=== PATIENT | female | born 1945 ===

== ENCOUNTER 2016-09-10 14:10 | Inpatient (IN) | payer MEDICARE, BC ==
--- NOTE | 2016-09-10 14:50 | C.PDOC ---
History Of Present Illness 70F c/o episode of anterior chest "burning" and sob that started while she was lying down at dialysis. she says she sat up and called the tech and then the nuclear equipment test engineer came and saw her and sent her here. her sx dissipated after about 30 minutes. she had a similar episode last year that she says her dial maker told her was from her esophagus. however she also has a hx of cardiac stent. Time Seen by Provider: 09/10/16 14:46 Chief Complaint (Nursing): Shortness Of Breath Past Medical History Vital Signs: Last Vital Signs Temp 97.8 F 09/11/16 17:15 Pulse 83 09/11/16 17:15 Resp 20 09/11/16 17:15 BP 153/83 H 09/11/16 17:15 Pulse Ox 97 09/11/16 17:15 Family History: States: Other Other Family History: nc Review Of Systems Except As Marked, All Systems Reviewed And Found Negative. Constitutional: Negative for: Fever, Chills Cardiovascular: Positive for: Chest Pain. Negative for: Edema, Light Headedness Respiratory: Positive for: Shortness of Breath. Negative for: Cough, Hemoptysis Gastrointestinal: Negative for: Nausea, Vomiting, Abdominal Pain Neurological: Negative for: Weakness, Numbness, Headache Physical Exam - Physical Exam Appears: Well, Non-toxic, No Acute Distress Skin: Warm, Dry Head: Atraumatic Eye(s): bilateral: PERRL Nose: No Epistaxis Oral Mucosa: Moist Tongue: No Swelling Neck: Normal ROM Cardiovascular: Rhythm Regular Respiratory: No Decreased Breath Sounds, No Accessory Muscle Use, No Rales, No Rhonchi, No Wheezing Gastrointestinal/Abdominal: Soft, No Tenderness Extremity: No Calf Tenderness, No Swelling Pulses: Left Radial: Normal, Right Radial: Normal Neurological/Psych: Oriented x3, Normal Motor, Normal Sensation, Other (no focal deficits) ED Course And Treatment - Laboratory Results Result Diagrams: 09/11/16 07:58 09/11/16 07:58 Medical Decision Making Medical Decision Making: ecg- nsr 83, LVH, no stemi CT shows no PE, incidental right lung mass- I disc these results w the pt. disc w hospitalist who will admit Disposition - Disposition Disposition: HOSPITALIZED Disposition Time: 17:19 Condition: STABLE - Clinical Impression Clinical Impression: Chest pain
[2016-09-10 15:51] LABS: BASO # 0.1 K/uL (0.0-0.2); BASO % 0.7 % (0.0-2.0); EOS # 0.3 K/uL (0.0-0.7); EOS % 4.4 % (0.0-4.0); HEMATOCRIT 33.1 % (34.0-47.0); LYMPH # 0.8 K/uL (1.0-4.3); MEAN CELL VOLUME 92.7 fL (81.0-99.0); MEAN CORPUSCULAR HEMOGLOBIN 30.8 pg (27.0-31.0); MEAN CORPUSCULAR HGB CONC 33.2 g/dL (33.0-37.0); MEAN PLATELET VOLUME 7.6 fL (7.2-11.7); MONO # 0.7 K/uL (0.0-0.8); MONO % 9.5 % (0.0-10.0); NRBC % 0.1 % (0.0-2.0); WHITE BLOOD COUNT 7.3 K/uL (4.8-10.8)
[2016-09-10 15:56] LABS: POTASSIUM 3.4 mmol/L (3.6-5.2)
[2016-09-10 15:59] LABS: ALB/GLOB RATIO 1.2 (1.0-2.1); BILIRUBIN,TOTAL 0.8 mg/dL (0.2-1.3); CALCIUM 8.5 mg/dl (8.6-10.4); TOTAL PROTEIN 7.2 g/dL (6.3-8.3)
--- NOTE | 2016-09-10 15:59 | RAD ---
HISTORY: cp COMPARISON: None available TECHNIQUE: Chest, one view. FINDINGS: LUNGS: No focal consolidation. Please note that chest x-ray has limited sensitivity for the detection of pulmonary masses. PLEURA: No significant pleural effusion identified. No definite pneumothorax . CARDIOVASCULAR: Cardiomegaly. Vascular stent. Atherosclerotic calcifications of the aorta. OSSEOUS STRUCTURES: No acute osseous abnormality identified. VISUALIZED UPPER ABDOMEN: Unremarkable. OTHER FINDINGS: None. IMPRESSION: Cardiomegaly.
[2016-09-10 16:10] LABS: TROPONIN I 0.028 ng/mL (0.00-0.120)
[2016-09-10] MEDS ORDERED: Iodixanol 320 MG/ML 100 ML BOTTLE IV ONE (16:25)
--- NOTE | 2016-09-10 17:09 | CT ---
CT chest with IV contrast Indication: Shortness of breath, chest pain, positive D-dimer Technique: Contiguous axial images were obtained through the chest with intravenous contrast enhancement. Sagittal and coronal reconstructions were generated and reviewed. This CT exam was performed using 1 or more of the falling dose reduction techniques: Automated exposure control, adjustment of the MAA and/or kV according to patient size, and/or use of iterative reconstruction technique. IV Contrast: 100 mL Visipaque Radiation dose (DLP): 211.60 MGy-cm. Comparison: Chest x-ray performed 09/10/16 Findings: Visualized portions of the inferior thyroid gland appear unremarkable. Coronary artery calcifications. Mild cardiomegaly. Brachiocephalic vascular stent. Dense atherosclerotic calcifications of the aorta. No large central or segmental pulmonary embolus evident. 17 mm ground-glass focal opacity in the right lung apex (series 4, image 49). Bibasilar infiltrates. Trace bilateral pleural effusions. No pneumothorax. Limited visualization of the upper abdomen reveals 1.8 cm low-density lesion, left kidney ; likely cyst. Degenerative changes. Osseous demineralization. Impression: No large central or segmental pulmonary embolus identified. 17 mm focal ground-glass opacity in the right lung apex. Correlate clinically for focal inflammatory or infectious process. Malignant neoplasm cannot be excluded. Recommend further evaluation with PET- CT, follow-up CT at 3 months, and 9 months, and 24 months, or biopsy if indicated. Cardiomegaly. Coronary artery calcifications. Dense atherosclerotic calcifications of the aorta.
--- NOTE | 2016-09-10 18:57 | CP.PCM.HP ---
<Villa Graham - Last Filed: 09/11/16 07:32> History of Present Illness - History of Present Illness History of Present Illness: HPI: Patient is a 70 year old black female, with PMHx of ESRD, HTN, CAD, and stent placement in LAD, who presents to [facility] ([facility]) for chest pain. Patient reports being at dialysis when 2.5 hours through she began to experience a pain in her upper abdomen and chest after being moved to the supine position, that was associated with a sudden SOB and sweating. She describes the pain as sharp, "burning sensation" that traveled from her upper abdomen into her chest, lasted for twenty minutes, and rated a 7-8/10 on the severity scale. She made the ecological technical officer aware of her pain/SOB and they applied oxygen, and summoned Dr. Steele, who advised pt be sent to ED. Patient describes having a similar pain on two occasions: this past weekend after drinking coffee and having a fatty meal, and back in May - also during a dialysis session. After the episode in May pt saw her busgirl Dr. Winn, who prescribed a PPI for one month , after which pt had no additional episodes. Pt had cardiac catheterization with stent placement in her LAD back in November 2015, with Dr. Winn at [facility]. She denies fever, chills, cough, hemoptysis, dysuria, nausea, vomiting, weakness, numbness, headache, sick contacts, or recent travel. Pt admits her normal dry weight is 50.5 kg, pre-dialysis weighed 52.7 kg, and knows 2 liters was taken off during the dialysis. Her normal schedule is Fri, and her incinerator operator is Dr. Hernández. Pt has been on dialysis for five years and still makes urine. PMHx: ESRD (5 years), HTN, Stent placement in LAD (2009) PSHx: LAD Stent placement - November 2009, Pericardial Window (2003) Allergies: wheat Fam Hx: Father - pacemaker, CAD; Mother- HTN, DM, [place] Social Hx: denies tobacco, alcohol, illicit drug use Present on Admission - Present on Admission Any Indicators Present on Admission: No History of DVT/PE: No History of Uncontrolled Diabetes: No Review of Systems - Constitutional Constitutional: absent: Chills, Fever - EENT Eyes: absent: Change in Vision Ears: absent: Decreased Hearing Nose/Mouth/Throat: absent: Sore Throat - Cardiovascular Cardiovascular: Chest Pain (abdomen to mid-sternal), Diaphoresis, Dyspnea. absent: Irregular Heart Rhythm, Pedal Edema - Respiratory Respiratory: absent: Hemoptysis, Wheezing, Chest Congestion - Gastrointestinal Gastrointestinal: Abdominal Pain (upper abdomen (epigastric)), Heartburn. absent: Diarrhea, Nausea, Vomiting - Genitourinary Genitourinary: absent: Difficulty Urinating, Dysuria - Musculoskeletal Musculoskeletal: absent: Tingling - Integumentary Integumentary: absent: Dry Skin, Wounds - Neurological Neurological: absent: Tingling, Tremor, Weakness - Psychiatric Psychiatric: absent: Anxiety, Depression Past Patient History - Past Social History Smoking Status: Never Smoked - CARDIAC Hx Congestive Heart Failure: Yes Hx Hypertension: Yes - RENAL Hx Dialysis: Yes Type of Dialysis Access: THA arm Date of Last Dialysis Treatment: 09/10/16 - PSYCHIATRIC Hx Substance Use: No - SURGICAL HISTORY Hx Coronary Stent: Yes Other/Comment: Pericardal window - ANESTHESIA Hx Anesthesia: Yes Meds Allergies/Adverse Reactions: Allergies Allergy/AdvReac Type Severity Reaction Status Date / Time wheat Allergy Verified 09/10/16 14:52 Physical Exam - Constitutional Appears: Non-toxic, No Acute Distress - Head Exam Head Exam: ATRAUMATIC, NORMAL INSPECTION, NORMOCEPHALIC - Eye Exam Eye Exam: EOMI Pupil Exam: PERRL - ENT Exam ENT Exam: Mucous Membranes Moist - Respiratory Exam Respiratory Exam: Chest Wall Tenderness, Clear to Auscultation Bilateral, NORMAL BREATHING PATTERN. absent: Accessory Muscle Use, Rales, Rhonchi, Wheezes - Cardiovascular Exam Cardiovascular Exam: REGULAR RHYTHM, +S1, +S2, Systolic Murmur - GI/Abdominal Exam GI & Abdominal Exam: Normal Bowel Sounds, Soft, Tenderness (epigastric) - Extremities Exam Extremities exam: Positive for: normal inspection. Negative for: pedal edema - Back Exam Back exam: absent: CVA tenderness (L), CVA tenderness (R) - Neurological Exam Neurological exam: Alert, Oriented x3 - Psychiatric Exam Psychiatric exam: Normal Affect, Normal Mood - Skin Skin Exam: Normal Color, Warm Results - Vital Signs Recent Vital Signs: Last Vital Signs Temp Pulse 88 09/10/16 17:35 Resp 15 09/10/16 17:35 BP 200/76 H 09/10/16 17:35 Pulse Ox 98 09/10/16 17:35 - Labs Result Diagrams: 09/10/16 15:41 09/10/16 15:41 Assessment & Plan - Assessment and Plan (Free Text) Assessment: 70 year old black female, with PMHx of ESRD, HTN, CAD, and stent placement in LAD, who presents to [facility] ([facility] for chest pain. Troponins negative x 2. EKG no st/t wave changes. D-dimer elevated. CT angio negative for PE. Plan: Chest pain Admit as observation to tele EKG: NSR, Rate 83, No ST/T wave changes, f/u 2 additional Q6H Troponin: negative x 1, f/u 2 additional Q6H D-dimer 654 Oxygen 2L PRN Cardio consult: Dr. Winn, help appreciated -Hx of double-vessel disease, stent placement LAD Continue home meds: Crestor 20mg PO HS (substituted for home Lipitor) Lisinopril 20mg PO Daily Carvedilol 25mg PO BID Norvasc 10mg PO Daily Hydralazine 25mg PO TID ASA 325mg in field, continue 81mg Daily Clopidogrel 75mg PO Daily f/u ECHO, TSH, HgbA1C, fasting lipid panel ESRD Dry weight: 50.5 kg, 52.7 kg pre-dialysis, took off 2L during dialysis Schedule: T-Sat Nephrology: Dr. Pankaj Hernández, help appreciated - f/u reccs Bun/Cr 20/3.7, GFR 15 Elevated D-dimer D-Dimer 654 CT Angio (09/10/16): No PE. Cardiomegaly. CAD. Calcifications of Aorta. Incidental 17 mm focal ground-glass opacity in right lung apex. Recommend PET Scan, CT in 3 months, 9 months, and 24 months, or biopsy if indicated (see full report) f/u US VDL b/l Solitary Lung nodule CT Angio (09/10/16): No PE. Cardiomegaly. CAD. Calcifications of Aorta. Incidental 17 mm focal ground-glass opacity in right lung apex. Recommend PET Scan, CT in 3 months, 9 months, and 24 months, or biopsy if indicated (see full report) Pt aware of need for follow-up as OPDX HTN (hypertension) Hypertensive on admission, down-trending Lisinopril 20mg PO Daily Carvedilol 25mg PO BID Norvasc 10mg PO Daily Hydralazine 25mg PO TID Thrombocytopenia Platelets: 101k Monitor Hyperlipidemia Crestor 20mg PO HS f/u fasting cholesterol panel Electrolyte abnormalities K 3.4; repleted f/u CMP in AM Prophylactic measure Pepcid 20mg PO BID SCDs Heparin 5000u Q12H <German Rincon P - Last Filed: 09/14/16 23:27> Results - Vital Signs Recent Vital Signs: Last Vital Signs Temp 98.6 F 09/13/16 15:29 Pulse 62 09/13/16 15:30 Resp 20 09/13/16 15:29 BP 162/67 H 09/13/16 17:47 Pulse Ox 98 09/13/16 15:29 - Labs Result Diagrams: 09/13/16 07:11 09/13/16 07:11 Attending/Attestation - Attestation I have personally seen and examined this patient.: Yes I have fully participated in the care of the patient.: Yes I have reviewed all pertinent clinical information: Yes
[2016-09-11] MEDS ORDERED: Potassium Chloride 20 mEq ER Tab PO ONE ×2 (00:32→23:40)
[2016-09-11 08:14] LABS: BASO # 0.1 K/uL (0.0-0.2); BASO % 0.9 % (0.0-2.0); EOS # 0.3 K/uL (0.0-0.7); EOS % 4.7 % (0.0-4.0); HEMATOCRIT 31.5 % (34.0-47.0); LYMPH # 0.8 K/uL (1.0-4.3); LYMPH % 11.7 % (20.0-40.0); MEAN CELL VOLUME 92.9 fL (81.0-99.0); MEAN CORPUSCULAR HEMOGLOBIN 30.8 pg (27.0-31.0); MEAN CORPUSCULAR HGB CONC 33.1 g/dL (33.0-37.0); MEAN PLATELET VOLUME 7.8 fL (7.2-11.7); MONO # 0.7 K/uL (0.0-0.8); MONO % 10.1 % (0.0-10.0); WHITE BLOOD COUNT 7.1 K/uL (4.8-10.8)
[2016-09-11 08:31] LABS: POTASSIUM 4.7 mmol/L (3.6-5.2)
[2016-09-11 08:33] LABS: ALB/GLOB RATIO 1.2 (1.0-2.1); BILIRUBIN,TOTAL 0.7 mg/dL (0.2-1.3); TOTAL PROTEIN 6.4 g/dL (6.3-8.3)
[2016-09-11 08:34] LABS: CALCIUM 8.5 mg/dl (8.6-10.4); MAGNESIUM 2.1 mg/dL (1.6-2.3); PHOSPHOROUS 3.5 mg/dL (2.5-4.5)
[2016-09-11 09:09] LABS: THYROID STIMULATING HORMONE 2.42 mIU/L (0.46-4.68)
[2016-09-11] MEDS ORDERED: Iodixanol 320 MG/ML 100 ML BOTTLE IV ONE (09:28)
[2016-09-11] MEDS ORDERED: Midazolam 2 MG/2 ML VIAL ONE (09:30)
[2016-09-11] MEDS ORDERED: Enalaprilat 2.5 MG/2 ML ONE (09:57)
[2016-09-11] MEDS: Multivitamin Vitamin B Complex (Nephro-Vite) Tab PO SCH (10:27)
--- NOTE | 2016-09-11 11:26 | CARDCATH ---
PROCEDURE DATE: 09/11/2016 PROCEDURES: 1. Left heart catheterization. 2. Coronary angiogram. CLINICAL INDICATIONS: 1. Unstable angina. 2. Dyspnea. 3. History of coronary artery disease status post stents. 4. Hypertension. 5. Hyperlipidemia. 6. Chronic kidney disease on hemodialysis. REFERRING PHYSICIAN: Jayesh Esparza DO. PERFORMING PHYSICIAN: Willem Winn MD. PROCEDURE: After informed consent, the patient was prepped and draped in the usual sterile fashion. 2% lidocaine was given in the right groin for local anesthesia. Using micropuncture technique, 6-Fr ench sheath was introduced into the right common femoral artery. Using the usual diagnostic catheter s, left heart catheterization and coronary angiogram were performed. The patient tolerated the proce dure well. Post procedure, Perclose suture deployed in the right groin with excellent hemostasis. FINDINGS: 1. Left main coronary artery is patent. 2. Proximal LAD and mid LAD are patent. The patient has a distal LAD 99% in-stent stenosis. Apical LAD has 80% stenosis. Diagonal branches are patent. 3. Left circumflex is patent. Obtuse marginal-1 artery has 50% proximal and distal lesions. 4. Right coronary artery prior stent is patent. Distal right coronary artery has 80% focal stenosis . PDA has a diffuse disease. 5. LV ejection fraction is approximately 70%. No wall motion abnormalities. EDP is 30. No gradien t across the aortic valve. IMPRESSION: 1. Two-vessel coronary artery disease. 2. Normal left ventricular systolic function. The patient will be scheduled for ____ of the left anterior descending coronary artery tomorrow. Willem Winn MD cc: [id number] TT: 09/11/2016 11:26:03 jn
--- NOTE | 2016-09-11 12:38 | CP.PCM.PN ---
<Jim Mensah - Last Filed: 09/11/16 12:38> Subjective - Date & Time of Evaluation Date of Evaluation: 09/11/16 Time of Evaluation: 12:35 - Subjective Subjective: Med progress note. Attending: Dr. Esparza Pt seen and examined at bedside. No acute distress. No events overnight, but pt went for cardiac cath this morning. Pt to be transferred to [place] tomorrow for PCI. Denies fevers, chills, vomiting, diarrhea, syncope. Objective - Vital Signs/Intake and Output Vital Signs (last 24 hours): Temp Pulse Resp BP Pulse Ox 98.5 F 70 18 162/69 H 95 09/11/16 07:05 09/11/16 07:25 09/11/16 07:05 09/11/16 07:05 09/11/16 07:05 - Medications Medications: Current Medications Amlodipine Besylate (Norvasc) 10 mg PO Q24H [facility] Last Admin: 09/10/16 21:09 Dose: 10 mg Aspirin (Ecotrin) 81 mg PO DAILY [facility] Last Admin: 09/11/16 10:26 Dose: Not Given Carvedilol (Coreg) 25 mg PO BID [facility] Last Admin: 09/11/16 10:26 Dose: Not Given Cinacalcet (Sensipar) 30 mg PO DAILY [facility] Last Admin: 09/11/16 10:27 Dose: Not Given Famotidine (Pepcid) 20 mg PO BID [facility] Last Admin: 09/11/16 10:27 Dose: Not Given Heparin Sodium (Porcine) (Heparin) 5,000 units SC Q12 [facility] Last Admin: 09/11/16 10:27 Dose: Not Given Hydralazine HCl (Apresoline) 25 mg PO TID [facility] Last Admin: 09/11/16 10:26 Dose: Not Given Lisinopril (Zestril) 20 mg PO DAILY [facility] Last Admin: 09/11/16 10:27 Dose: Not Given Rosuvastatin Calcium (Crestor) 20 mg PO HS [facility] Last Admin: 09/11/16 02:11 Dose: 20 mg Sevelamer Carbonate (Renvela) 800 mg PO TIDCC [facility] Last Admin: 09/11/16 08:51 Dose: Not Given Vitamin B Complex/Vit C/Folic Acid (Nephro-Enedina) 1 tab PO DAILY [facility] Last Admin: 09/11/16 10:27 Dose: Not Given - Labs Labs: 09/11/16 07:58 09/11/16 07:58 - Constitutional Appears: Non-toxic, No Acute Distress - Head Exam Head Exam: ATRAUMATIC, NORMAL INSPECTION, NORMOCEPHALIC - Eye Exam Eye Exam: EOMI - ENT Exam ENT Exam: Mucous Membranes Moist - Neck Exam Neck Exam: Full ROM, Normal Inspection - Respiratory Exam Respiratory Exam: NORMAL BREATHING PATTERN. absent: Respiratory Distress - Cardiovascular Exam Cardiovascular Exam: +S1, +S2 - GI/Abdominal Exam GI & Abdominal Exam: Soft, Normal Bowel Sounds. absent: Tenderness - Extremities Exam Extremities Exam: Full ROM, Normal Inspection - Neurological Exam Neurological Exam: Alert, Awake, Oriented x3 - Psychiatric Exam Psychiatric exam: Normal Affect, Normal Mood - Skin Skin Exam: Dry, Intact, Normal Color, Warm Assessment and Plan - Assessment and Plan (Free Text) Assessment: 70 year old black female, with PMHx of ESRD, HTN, CAD, and stent placement in LAD, who presents to [facility] for chest pain Chest pain Admit as observation to tele EKG: NSR, Rate 83, No ST/T wave changes, f/u 2 additional Q6H Troponin: negative x 3 D-dimer 654 Oxygen 2L PRN CTA negative for PE Cardio consult: Dr. Winn, help appreciated -Hx of double-vessel disease, stent placement LAD Continue home meds: Crestor 20mg PO HS (substituted for home Lipitor) Lisinopril 20mg PO Daily Carvedilol 25mg PO BID Norvasc 10mg PO Daily Hydralazine 25mg PO TID ASA 325mg in field, continue 81mg Daily Clopidogrel 75mg PO Daily>> will discontinue f/u ECHO, TSH, HgbA1C, fasting lipid panel ESRD Dry weight: 50.5 kg, 52.7 kg pre-dialysis, took off 2L during dialysis Schedule: T--Sat Nephrology: Dr. Pankaj Hernández, help appreciated - f/u recs will get extra dialysis today in light of increased contrast load Elevated D-dimer D-Dimer 654 CT Angio (09/10/16): No PE. Cardiomegaly. CAD. Calcifications of Aorta. Incidental 17 mm focal ground-glass opacity in right lung apex. Recommend PET Scan, CT in 3 months, 9 months, and 24 months, or biopsy if indicated (see full report) f/u US VDL b/l Solitary Lung nodule CT Angio (09/10/16): No PE. Cardiomegaly. CAD. Calcifications of Aorta. Incidental 17 mm focal ground-glass opacity in right lung apex. Recommend PET Scan, CT in 3 months, 9 months, and 24 months, or biopsy if indicated (see full report) Pt aware of need for follow-up as outpatient HTN (hypertension) Hypertensive on admission, down-trending Lisinopril 20mg PO Daily Carvedilol 25mg PO BID Norvasc 10mg PO Daily Hydralazine 25mg PO TID Thrombocytopenia Platelets: 101k on admission Monitor Hyperlipidemia Crestor 20mg PO HS f/u fasting cholesterol panel Electrolyte abnormalities pt hypokalemic on admission, will continue to monitor and replete as needed Prophylactic measure Pepcid 20mg PO BID SCDs Heparin 5000u Q12H Dispo: based on cardiac cath, pt will need transfer to [facility] for PCI tomorrow. Will f/u echo results and pt will get extra dialysis today. discussed with Dr. Esparza <Jayesh Esparza - Last Filed: 09/11/16 16:14> Objective - Vital Signs/Intake and Output Vital Signs (last 24 hours): Temp Pulse Resp BP Pulse Ox 97.8 F 79 18 174/78 H 95 09/11/16 14:15 09/11/16 15:33 09/11/16 15:33 09/11/16 15:45 09/11/16 14:15 - Medications Medications: Current Medications Amlodipine Besylate (Norvasc) 10 mg PO Q24H [facility] Last Admin: 09/10/16 21:09 Dose: 10 mg Aspirin (Ecotrin) 81 mg PO DAILY [facility] Last Admin: 09/11/16 10:26 Dose: Not Given Carvedilol (Coreg) 25 mg PO BID [facility] Last Admin: 09/11/16 10:26 Dose: Not Given Cinacalcet (Sensipar) 30 mg PO DAILY [facility] Last Admin: 09/11/16 10:27 Dose: Not Given Famotidine (Pepcid) 20 mg PO BID [facility] Last Admin: 09/11/16 10:27 Dose: Not Given Heparin Sodium (Porcine) (Heparin) 5,000 units SC Q12 [facility] Last Admin: 09/11/16 10:27 Dose: Not Given Hydralazine HCl (Apresoline) 25 mg PO TID [facility] Last Admin: 09/11/16 10:26 Dose: Not Given Lisinopril (Zestril) 20 mg PO DAILY [facility] Last Admin: 09/11/16 10:27 Dose: Not Given Rosuvastatin Calcium (Crestor) 20 mg PO HS [facility] Last Admin: 09/11/16 02:11 Dose: 20 mg Sevelamer Carbonate (Renvela) 800 mg PO TIDCC [facility] Last Admin: 09/11/16 08:51 Dose: Not Given Vitamin B Complex/Vit C/Folic Acid (Nephro-Enedina) 1 tab PO DAILY [facility] Last Admin: 09/11/16 10:27 Dose: Not Given - Labs Labs: 09/11/16 07:58 09/11/16 07:58 Attending/Attestation - Attestation I have personally seen and examined this patient.: Yes I have fully participated in the care of the patient.: Yes I have reviewed all pertinent clinical information, including history, physical exam and plan: Yes Notes (Text): 09/11/16 16:11 Medical attending: Patient was seen and examined by me, agrees the above note by medical advisor. The patient was seen briefly after she had a cardiac cath done. She was pending an ultrasound of her heart. From my understanding the cardiac cath showed a significant amount of coronary disease. Per cardiology the patient is pending transfer over to [place] for further intervention. Thank you very much, Jayesh Esparza
--- NOTE | 2016-09-11 14:19 | VASCLAB ---
PROCEDURE: Lower Extremity Venous Duplex Exam. HISTORY: Chest pain PRIORS: None. TECHNIQUE: Bilateral common femoral, femoral, popliteal and posterior tibial, peroneal and great saphenous veins were evaluated. Flow was assessed with color Doppler, compressibility, assessment of phasic flow and augmentation response. Report prepared by VENUS Gilliam FINDINGS: RIGHT: 1. Common Femoral Vein: 1.1. Not examined/ dressings post cath in right groin 2. Femoral Vein: 2.1. Compressibility - Fully compressible: Thrombus - None : Flow - Phasic: Augmentation -Normal: Reflux - None. 3. Popliteal Vein: 3.1. Compressibility - Fully compressible: Thrombus - None : Flow - Phasic: Augmentation -Normal: Reflux - None. 4. Posterior Tibial Vein: 4.1. Compressibility - Fully compressible: Thrombus - None: Flow - Phasic: Augmentation -Normal: Reflux - None. 5. Peroneal Vein: 5.1. Compressibility - Fully compressible: Thrombus - None: Flow - Phasic: Augmentation -Normal: Reflux - None. 6. Great Saphenous Vein: 6.1. Compressibility - Fully compressible: Thrombus - None: Flow - Phasic: Augmentation - Normal: Reflux - None. LEFT: 1. Common Femoral Vein: 1.1. Compressibility - Fully compressible: Thrombus - None: Flow - Phasic: Augmentation -Normal: Reflux - None. 2. Femoral Vein: 2.1. Compressibility - Fully compressible: Thrombus - None: Flow - Phasic: Augmentation -Normal: Reflux - None. 3. Popliteal Vein: 3.1. Compressibility - Fully compressible: Thrombus - None : Flow - Phasic: Augmentation -Normal: Reflux - None. 4. Posterior Tibial Vein: 4.1. Compressibility - Fully compressible: Thrombus - None: Flow - Phasic: Augmentation -Normal: Reflux - None. 5. Peroneal Vein: 5.1. Compressibility - Fully compressible: Thrombus - None: Flow - Phasic: Augmentation -Normal: Reflux - None. 6. Great Saphenous Vein: 6.1. Compressibility - Fully compressible: Thrombus - None: Flow - Phasic: Augmentation - Normal: Reflux - None. OTHER FINDINGS: Right: None significant. Left: None significant. IMPRESSION: Right: No evidence of deep or superficial vein thrombosis of the right lower extremity. Normal valve function noted of the right side. Left: No evidence of deep or superficial vein thrombosis of the left lower extremity. Normal valve function noted of the left side.
--- NOTE | 2016-09-11 16:29 | CP.PCM.CON ---
History of Present Illness - History of Present Illness History of Present Illness: 70 y/o female with ESRD on [facility] on TTs schedule, HTN, CAD with LAD stenting in 11/2015 was brought to ER because while on dialysis suddenly developed chest pain & sob Renal consult is requested for Mx of ESRD Currently on dialysis. No CP or sob Past Patient History - Past Medical History & Family History Past Medical History?: Yes - Past Social History Smoking Status: Never Smoked - CARDIAC Hx Congestive Heart Failure: Yes Hx Hypertension: Yes - HEENT Hx Cataracts: Yes - RENAL Hx Dialysis: Yes Type of Dialysis Access: THA arm Date of Last Dialysis Treatment: 09/10/16 - HEMATOLOGICAL/ONCOLOGICAL Hx Blood Transfusions: Yes (2013) Hx Blood Transfusion Reaction: No - MUSCULOSKELETAL/RHEUMATOLOGICAL Hx Falls: Yes Hx Fractures: Yes (2008) - GASTROINTESTINAL Hx Gastroesophageal Reflux: Yes - PSYCHIATRIC Hx Substance Use: No - SURGICAL HISTORY Hx Coronary Stent: Yes Other/Comment: Pericardal window - ANESTHESIA Hx Anesthesia: Yes Meds Allergies/Adverse Reactions: Allergies Allergy/AdvReac Type Severity Reaction Status Date / Time wheat Allergy Verified 09/10/16 14:52 - Medications Medications: Current Medications Amlodipine Besylate (Norvasc) 10 mg PO Q24H [facility] Last Admin: 09/10/16 21:09 Dose: 10 mg Aspirin (Ecotrin) 81 mg PO DAILY [facility] Last Admin: 09/11/16 10:26 Dose: Not Given Carvedilol (Coreg) 25 mg PO BID [facility] Last Admin: 09/11/16 10:26 Dose: Not Given Cinacalcet (Sensipar) 30 mg PO DAILY [facility] Last Admin: 09/11/16 10:27 Dose: Not Given Famotidine (Pepcid) 20 mg PO BID [facility] Last Admin: 09/11/16 10:27 Dose: Not Given Heparin Sodium (Porcine) (Heparin) 5,000 units SC Q12 [facility] Last Admin: 09/11/16 10:27 Dose: Not Given Hydralazine HCl (Apresoline) 25 mg PO TID [facility] Last Admin: 09/11/16 10:26 Dose: Not Given Lisinopril (Zestril) 20 mg PO DAILY [facility] Last Admin: 09/11/16 10:27 Dose: Not Given Rosuvastatin Calcium (Crestor) 20 mg PO HS [facility] Last Admin: 09/11/16 02:11 Dose: 20 mg Sevelamer Carbonate (Renvela) 800 mg PO TIDCC [facility] Last Admin: 09/11/16 08:51 Dose: Not Given Vitamin B Complex/Vit C/Folic Acid (Nephro-Enedina) 1 tab PO DAILY [facility] Last Admin: 09/11/16 10:27 Dose: Not Given Physical Exam - Constitutional Additional comments: Weak but NAD - Head Exam Head Exam: ATRAUMATIC, NORMOCEPHALIC - Eye Exam Additional comments: No icterus - Neck Exam Additional comments: JVD + while supine - Respiratory Exam Additional comments: Lungs clear - Cardiovascular Exam Cardiovascular Exam: REGULAR RHYTHM - GI/Abdominal Exam GI & Abdominal Exam: Soft - Extremities Exam Additional comments: No edema or cyanosis Results - Vital Signs Recent Vital Signs: Last Vital Signs Temp 97.8 F 09/11/16 14:15 Pulse 79 09/11/16 15:33 Resp 18 09/11/16 15:33 BP 174/78 H 09/11/16 15:45 Pulse Ox 95 09/11/16 14:15 - Labs Result Diagrams: 09/11/16 07:58 09/11/16 07:58 Labs: Laboratory Results - last 24 hr 09/11/16 09/11/16 09/11/16 02:00 07:58 07:58 WBC 7.1 RBC 3.39 L Hgb 10.4 L Hct 31.5 L MCV 92.9 MCH 30.8 MCHC 33.1 RDW 17.0 H Plt Count 109 L MPV 7.8 Neut % (Auto) 72.6 Lymph % (Auto) 11.7 L [place] % (Auto) 10.1 H Eos % (Auto) 4.7 H Baso % (Auto) 0.9 Neut # 5.2 Lymph # 0.8 L [place] # 0.7 Eos # 0.3 Baso # 0.1 Sodium 137 Potassium 4.7 Chloride 96 L Carbon Dioxide 29 Anion Gap 16 BUN 28 H Creatinine 5.3 H Est GFR ( Amer) 10 Est GFR (Non-Af Amer) 8 Random Glucose 81 Hemoglobin A1c Calcium 8.5 L Phosphorus 3.5 Magnesium 2.1 Total Bilirubin 0.7 AST 15 ALT 11 Alkaline Phosphatase 49 Total Creatine Kinase 40 44 CK-MB (Mass) 1.18 1.15 Troponin I, Quant 0.0440 0.0490 Total Protein 6.4 Albumin 3.4 L Globulin 3.0 Albumin/Globulin Ratio 1.2 Triglycerides 82 Cholesterol 98 LDL Cholesterol Direct 37 HDL Cholesterol 37 TSH 3rd Generation 2.42 09/11/16 07:58 WBC RBC Hgb Hct MCV MCH MCHC RDW Plt Count MPV Neut % (Auto) Lymph % (Auto) [place] % (Auto) Eos % (Auto) Baso % (Auto) Neut # Lymph # [place] # Eos # Baso # Sodium Potassium Chloride Carbon Dioxide Anion Gap BUN Creatinine Est GFR ( Amer) Est GFR (Non-Af Amer) Random Glucose Hemoglobin A1c 4.7 Calcium Phosphorus Magnesium Total Bilirubin AST ALT Alkaline Phosphatase Total Creatine Kinase CK-MB (Mass) Troponin I, Quant Total Protein Albumin Globulin Albumin/Globulin Ratio Triglycerides Cholesterol LDL Cholesterol Direct HDL Cholesterol TSH 3rd Generation Assessment & Plan - Assessment and Plan (Free Text) Assessment: ESRD on HD Chest pain, Hx/o CAD HTN Plan: Pt had cardiac cath earlier today & is receiving extra dialysis now Labs are stable Monitor BP Continue HD TTS
[2016-09-11 16:38] LABS: INR 1.1
--- NOTE | 2016-09-11 21:05 | CP.PCM.PN ---
Subjective - Date & Time of Evaluation Date of Evaluation: 09/11/16 Time of Evaluation: 12:00 - Subjective Subjective: Patient s/p Cath Two vessel disease For LAD PCI tomorrow Objective - Vital Signs/Intake and Output Vital Signs (last 24 hours): Temp Pulse Resp BP Pulse Ox 98.6 F 77 18 173/77 H 97 09/11/16 18:00 09/11/16 18:00 09/11/16 18:00 09/11/16 18:04 09/11/16 18:00 - Medications Medications: Current Medications Amlodipine Besylate (Norvasc) 10 mg PO Q24H [facility] Last Admin: 09/10/16 21:09 Dose: 10 mg Aspirin (Ecotrin) 81 mg PO DAILY [facility] Last Admin: 09/11/16 10:26 Dose: Not Given Carvedilol (Coreg) 25 mg PO BID [facility] Last Admin: 09/11/16 18:04 Dose: 25 mg Cinacalcet (Sensipar) 30 mg PO DAILY [facility] Last Admin: 09/11/16 10:27 Dose: Not Given Famotidine (Pepcid) 20 mg PO BID [facility] Last Admin: 09/11/16 18:04 Dose: 20 mg Heparin Sodium (Porcine) (Heparin) 5,000 units SC Q12 [facility] Last Admin: 09/11/16 10:27 Dose: Not Given Hydralazine HCl (Apresoline) 25 mg PO TID [facility] Last Admin: 09/11/16 18:04 Dose: 25 mg Lisinopril (Zestril) 20 mg PO DAILY [facility] Last Admin: 09/11/16 10:27 Dose: Not Given Rosuvastatin Calcium (Crestor) 20 mg PO HS [facility] Last Admin: 09/11/16 02:11 Dose: 20 mg Sevelamer Carbonate (Renvela) 800 mg PO TIDCC [facility] Last Admin: 09/11/16 08:51 Dose: Not Given Vitamin B Complex/Vit C/Folic Acid (Nephro-Enedina) 1 tab PO DAILY [facility] Last Admin: 09/11/16 10:27 Dose: Not Given - Labs Labs: 09/11/16 07:58 09/11/16 07:58 PT 12.6 SECONDS (9.7-12.2) H 09/11/16 16:22 INR 1.1 09/11/16 16:22 APTT 32 SECONDS (21-34) 09/11/16 16:22
--- NOTE | 2016-09-12 00:54 | CARD ---
APPROVED REPORT EKG Measurement Heart [id number] <Conclusion> Normal sinus rhythm Possible Left atrial enlargement Left ventricular hypertrophy Nonspecific ST abnormality Abnormal ECG
--- NOTE | 2016-09-12 00:58 | CARD ---
APPROVED REPORT EKG Measurement Heart [id number] <Conclusion> Normal sinus rhythm Possible Left atrial enlargement Left ventricular hypertrophy Cannot rule out Septal infarct, age undetermined Abnormal ECG
[2016-09-12 05:04] LABS: BASO # 0.1 K/uL (0.0-0.2); EOS # 0.3 K/uL (0.0-0.7); EOS % 3.7 % (0.0-4.0); HEMATOCRIT 31.6 % (34.0-47.0); LYMPH # 1.1 K/uL (1.0-4.3); LYMPH % 14.2 % (20.0-40.0); MEAN CELL VOLUME 92.3 fL (81.0-99.0); MEAN CORPUSCULAR HEMOGLOBIN 30.5 pg (27.0-31.0); MEAN PLATELET VOLUME 7.8 fL (7.2-11.7); MONO # 0.9 K/uL (0.0-0.8); MONO % 10.8 % (0.0-10.0); WHITE BLOOD COUNT 7.9 K/uL (4.8-10.8)
[2016-09-12 05:14] LABS: POTASSIUM 4.5 mmol/L (3.6-5.2)
[2016-09-12 05:16] LABS: BILIRUBIN,TOTAL 0.6 mg/dL (0.2-1.3); TOTAL PROTEIN 6.6 g/dL (6.3-8.3)
[2016-09-12 05:17] LABS: MAGNESIUM 1.9 mg/dL (1.6-2.3); PHOSPHOROUS 3.3 mg/dL (2.5-4.5)
[2016-09-12 06:28] LABS: ALB/GLOB RATIO 0.9 (1.0-2.1)
[2016-09-12] MEDS: Multivitamin Vitamin B Complex (Nephro-Vite) Tab PO SCH (09:33)
--- NOTE | 2016-09-12 13:17 | CP.PCM.PN ---
<Jim Mensah - Last Filed: 09/12/16 13:20> Subjective - Date & Time of Evaluation Date of Evaluation: 09/12/16 Time of Evaluation: 13:15 - Subjective Subjective: Med progress note. Attending: Dr. Esparza Pt seen and examined at bedside. No acute distress. No events overnight. Pt is back from PCI at [place], 2 stents placed. Extra dialysis today. No fevers, chills, vomiting, diarrhea, syncope. Objective - Vital Signs/Intake and Output Vital Signs (last 24 hours): Temp Pulse Resp BP Pulse Ox 98.9 F 65 18 163/70 H 97 09/12/16 12:32 09/12/16 07:05 09/12/16 07:05 09/12/16 07:05 09/12/16 07:05 - Medications Medications: Current Medications Amlodipine Besylate (Norvasc) 10 mg PO Q24H [facility] Last Admin: 09/11/16 21:26 Dose: 10 mg Aspirin (Ecotrin) 81 mg PO DAILY [facility] Last Admin: 09/12/16 09:32 Dose: Not Given Carvedilol (Coreg) 25 mg PO BID [facility] Last Admin: 09/12/16 09:32 Dose: Not Given Cinacalcet (Sensipar) 30 mg PO DAILY [facility] Last Admin: 09/12/16 09:34 Dose: Not Given Famotidine (Pepcid) 20 mg PO BID [facility] Last Admin: 09/12/16 09:33 Dose: Not Given Heparin Sodium (Porcine) (Heparin) 5,000 units SC Q12 [facility] Last Admin: 09/12/16 09:33 Dose: Not Given Hydralazine HCl (Apresoline) 25 mg PO TID [facility] Last Admin: 09/12/16 09:32 Dose: Not Given Lisinopril (Zestril) 20 mg PO DAILY [facility] Last Admin: 09/11/16 10:27 Dose: Not Given Rosuvastatin Calcium (Crestor) 20 mg PO HS [facility] Last Admin: 09/11/16 21:27 Dose: 20 mg Sevelamer Carbonate (Renvela) 800 mg PO TIDCC [facility] Last Admin: 09/12/16 09:34 Dose: Not Given Vitamin B Complex/Vit C/Folic Acid (Nephro-Enedina) 1 tab PO DAILY [facility] Last Admin: 09/12/16 09:33 Dose: Not Given - Labs Labs: PT 12.6 SECONDS (9.7-12.2) H 09/11/16 16:22 INR 1.1 09/11/16 16:22 APTT 32 SECONDS (21-34) 09/11/16 16:22 - Constitutional Appears: Non-toxic, No Acute Distress - Head Exam Head Exam: ATRAUMATIC, NORMAL INSPECTION, NORMOCEPHALIC - Eye Exam Eye Exam: EOMI - ENT Exam ENT Exam: Mucous Membranes Moist - Neck Exam Neck Exam: Full ROM, Normal Inspection - Respiratory Exam Respiratory Exam: NORMAL BREATHING PATTERN. absent: Respiratory Distress - Cardiovascular Exam Cardiovascular Exam: +S1, +S2 - GI/Abdominal Exam GI & Abdominal Exam: Soft, Normal Bowel Sounds. absent: Tenderness - Extremities Exam Extremities Exam: Full ROM, Normal Inspection - Back Exam Back Exam: NORMAL INSPECTION - Neurological Exam Neurological Exam: Alert, Awake, CN II-XII Intact, Oriented x3 - Psychiatric Exam Psychiatric exam: Normal Affect, Normal Mood - Skin Skin Exam: Dry, Intact, Normal Color, Warm Assessment and Plan - Assessment and Plan (Free Text) Assessment: 70 year old black female, with PMHx of ESRD, HTN, CAD, and stent placement in LAD, who presents to [facility] for chest pain Chest pain will continue telemetry EKG: NSR, Rate 83, No ST/T wave changes, Troponin: negative x 3 D-dimer 654 Oxygen 2L PRN CTA negative for PE Cardio consult: Dr. Winn, help appreciated -Hx of double-vessel disease, stent placement LAD Continue home meds: Crestor 20mg PO HS (substituted for home Lipitor) Lisinopril 20mg PO Daily, placed on hold Carvedilol 25mg PO BID Norvasc 10mg PO Daily Hydralazine 25mg PO TID ASA 325mg in field, has been on 81 mg daily, got loading dose today, will restart 81 mg tomorrow Clopidogrel 75mg PO Daily>> will discontinue>> will restart tomorrow pt is s/p PCI at [place], 2 stents placed in LAD ESRD Dry weight: 50.5 kg, 52.7 kg pre-dialysis, took off 2L during dialysis Schedule: T-Sat Nephrology: Dr. Pankaj Hernández, help appreciated - f/u recs will get extra dialysis today in light of increased contrast load Elevated D-dimer D-Dimer 654 CT Angio (09/10/16): No PE. Cardiomegaly. CAD. Calcifications of Aorta. Incidental 17 mm focal ground-glass opacity in right lung apex. Recommend PET Scan, CT in 3 months, 9 months, and 24 months, or biopsy if indicated (see full report) dopplers negative Solitary Lung nodule CT Angio (09/10/16): No PE. Cardiomegaly. CAD. Calcifications of Aorta. Incidental 17 mm focal ground-glass opacity in right lung apex. Recommend PET Scan, CT in 3 months, 9 months, and 24 months, or biopsy if indicated (see full report) Pt aware of need for follow-up as outpatient HTN (hypertension) Hypertensive on admission, down-trending Lisinopril 20mg PO Daily, placed on hold Carvedilol 25mg PO BID Norvasc 10mg PO Daily Hydralazine 25mg PO TID Thrombocytopenia Platelets: 101k on admission Monitor Hyperlipidemia Crestor 20mg PO HS f/u fasting cholesterol panel Electrolyte abnormalities pt hypokalemic on admission, will continue to monitor and replete as needed Prophylactic measure Pepcid 20mg PO BID [facility] Heparin 5000u Q12H Dispo: S/P PCI at [facility] with Dr. Winn. Will f/u echo results and pt will get extra dialysis today. discussed with Dr. Esparza <Jayesh Esparza - Last Filed: 09/13/16 07:37> Objective - Vital Signs/Intake and Output Vital Signs (last 24 hours): Temp Pulse Resp BP Pulse Ox 99.2 F 74 20 158/64 H 95 09/12/16 23:35 09/12/16 23:35 09/12/16 23:35 09/12/16 23:35 09/12/16 23:35 - Medications Medications: Current Medications Amlodipine Besylate (Norvasc) 10 mg PO Q24H [facility] Last Admin: 09/12/16 20:43 Dose: 10 mg Aspirin (Ecotrin) 81 mg PO DAILY [facility] Last Admin: 09/12/16 09:32 Dose: Not Given Carvedilol (Coreg) 25 mg PO BID [facility] Last Admin: 09/12/16 19:39 Dose: 25 mg Cinacalcet (Sensipar) 30 mg PO DAILY [facility] Last Admin: 09/12/16 09:34 Dose: Not Given Clopidogrel Bisulfate (Plavix) 75 mg PO DAILY [facility] Famotidine (Pepcid) 20 mg PO DAILY [facility] Last Admin: 09/12/16 20:43 Dose: 20 mg Heparin Sodium (Porcine) (Heparin) 5,000 units SC Q12 [facility] Last Admin: 09/12/16 21:30 Dose: Not Given Hydralazine HCl (Apresoline) 25 mg PO TID [facility] Last Admin: 09/12/16 20:44 Dose: 25 mg Lisinopril (Zestril) 20 mg PO DAILY [facility] Last Admin: 09/11/16 10:27 Dose: Not Given Rosuvastatin Calcium (Crestor) 10 mg PO HS [facility] Last Admin: 09/12/16 21:28 Dose: 10 mg Sevelamer Carbonate (Renvela) 800 mg PO TIDCC [facility] Last Admin: 09/12/16 20:43 Dose: 800 mg Vitamin B Complex/Vit C/Folic Acid (Nephro-Enedina) 1 tab PO DAILY [facility] Last Admin: 09/12/16 09:33 Dose: Not Given - Labs Labs: 09/13/16 07:11 PT 12.6 SECONDS (9.7-12.2) H 09/11/16 16:22 INR 1.1 09/11/16 16:22 APTT 32 SECONDS (21-34) 09/11/16 16:22 Assessment and Plan - Assessment and Plan (Free Text) Assessment: Medical Attending: Patient later returned late in the afternoon after I had left. As documented in the above notes she was moved in the morning to for stent placment. She will now need extra HD now that she is back here at [facility]. thank you Jayesh Esparza
--- NOTE | 2016-09-12 14:20 | CP.PCM.PN ---
Subjective - Date & Time of Evaluation Date of Evaluation: 09/12/16 Time of Evaluation: 14:19 - Subjective Subjective: Patient s/p successful LAD intervention with Two Drug eluting stents HD today Ambulate after 2pm today Continue ASA, Plavix, Statins, B Blockers HTN mgt DVT and GI prophylaxis Objective - Vital Signs/Intake and Output Vital Signs (last 24 hours): Temp Pulse Resp BP Pulse Ox 98.9 F 65 18 163/70 H 97 09/12/16 12:32 09/12/16 07:05 09/12/16 07:05 09/12/16 07:05 09/12/16 07:05 - Medications Medications: Current Medications Amlodipine Besylate (Norvasc) 10 mg PO Q24H [facility] Last Admin: 09/11/16 21:26 Dose: 10 mg Aspirin (Ecotrin) 81 mg PO DAILY [facility] Last Admin: 09/12/16 09:32 Dose: Not Given Carvedilol (Coreg) 25 mg PO BID [facility] Last Admin: 09/12/16 09:32 Dose: Not Given Cinacalcet (Sensipar) 30 mg PO DAILY [facility] Last Admin: 09/12/16 09:34 Dose: Not Given Famotidine (Pepcid) 20 mg PO BID [facility] Last Admin: 09/12/16 09:33 Dose: Not Given Heparin Sodium (Porcine) (Heparin) 5,000 units SC Q12 [facility] Last Admin: 09/12/16 09:33 Dose: Not Given Hydralazine HCl (Apresoline) 25 mg PO TID [facility] Last Admin: 09/12/16 09:32 Dose: Not Given Lisinopril (Zestril) 20 mg PO DAILY [facility] Last Admin: 09/11/16 10:27 Dose: Not Given Rosuvastatin Calcium (Crestor) 20 mg PO HS [facility] Last Admin: 09/11/16 21:27 Dose: 20 mg Sevelamer Carbonate (Renvela) 800 mg PO TIDCC [facility] Last Admin: 09/12/16 13:33 Dose: Not Given Vitamin B Complex/Vit C/Folic Acid (Nephro-Enedina) 1 tab PO DAILY [facility] Last Admin: 09/12/16 09:33 Dose: Not Given - Labs Labs: PT 12.6 SECONDS (9.7-12.2) H 09/11/16 16:22 INR 1.1 09/11/16 16:22 APTT 32 SECONDS (21-34) 09/11/16 16:22
[2016-09-13 00:58] VITALS: RESP 20
[2016-09-13 07:23] LABS: BASO # 0.1 K/uL (0.0-0.2); BASO % 0.9 % (0.0-2.0); EOS # 0.2 K/uL (0.0-0.7); EOS % 2.9 % (0.0-4.0); HEMATOCRIT 32.3 % (34.0-47.0); LYMPH # 0.6 K/uL (1.0-4.3); LYMPH % 8.9 % (20.0-40.0); MEAN CORPUSCULAR HGB CONC 33.3 g/dL (33.0-37.0); MONO # 0.7 K/uL (0.0-0.8); MONO % 9.8 % (0.0-10.0); PLATELET COUNT 135 K/uL (130-400); WHITE BLOOD COUNT 7.1 K/uL (4.8-10.8)
[2016-09-13 07:40] LABS: POTASSIUM 4.4 mmol/L (3.6-5.2)
[2016-09-13 07:42] LABS: ALB/GLOB RATIO 1.1 (1.0-2.1); BILIRUBIN,TOTAL 0.7 mg/dL (0.2-1.3); TOTAL PROTEIN 6.8 g/dL (6.3-8.3)
[2016-09-13 07:43] LABS: PHOSPHOROUS 3.7 mg/dL (2.5-4.5)
[2016-09-13 09:11] LABS: BASOPHIL 1 % (0-2); EOSINOPHIL 2 % (0-4); NEUTROPHIL 84 % (50-75); TOTAL CELLS COUNTED 100
[2016-09-13] MEDS: Multivitamin Vitamin B Complex (Nephro-Vite) Tab PO SCH (09:52)
--- NOTE | 2016-09-13 13:22 | CP.PCM.PN ---
<Humaira Paz - Last Filed: 09/13/16 13:22> Subjective - Date & Time of Evaluation Date of Evaluation: 09/13/16 Time of Evaluation: 09:00 - Subjective Subjective: PGY-[address] Winn Pt seen and examined. No bleeding, denies cp, n/v, sob Objective - Vital Signs/Intake and Output Vital Signs (last 24 hours): Temp Pulse Resp BP Pulse Ox 98.2 F 75 20 196/73 H 99 09/13/16 07:10 09/13/16 07:10 09/13/16 07:10 09/13/16 09:52 09/13/16 07:10 - Medications Medications: Current Medications Amlodipine Besylate (Norvasc) 10 mg PO Q24H [facility] Last Admin: 09/12/16 20:43 Dose: 10 mg Aspirin (Ecotrin) 81 mg PO DAILY [facility] Last Admin: 09/13/16 09:52 Dose: 81 mg Carvedilol (Coreg) 25 mg PO BID [facility] Last Admin: 09/13/16 09:52 Dose: 25 mg Cinacalcet (Sensipar) 30 mg PO DAILY [facility] Last Admin: 09/13/16 09:50 Dose: 30 mg Clopidogrel Bisulfate (Plavix) 75 mg PO DAILY [facility] Last Admin: 09/13/16 09:52 Dose: 75 mg Famotidine (Pepcid) 20 mg PO DAILY [facility] Last Admin: 09/13/16 09:52 Dose: 20 mg Heparin Sodium (Porcine) (Heparin) 5,000 units SC Q12 [facility] Last Admin: 09/13/16 09:51 Dose: 5,000 units Hydralazine HCl (Apresoline) 25 mg PO TID [facility] Last Admin: 09/13/16 09:52 Dose: 25 mg Lisinopril (Zestril) 20 mg PO DAILY [facility] Last Admin: 09/11/16 10:27 Dose: Not Given Rosuvastatin Calcium (Crestor) 10 mg PO HS [facility] Last Admin: 09/12/16 21:28 Dose: 10 mg Sevelamer Carbonate (Renvela) 800 mg PO TIDCC [facility] Last Admin: 09/13/16 12:13 Dose: 800 mg Vitamin B Complex/Vit C/Folic Acid (Nephro-Enedina) 1 tab PO DAILY [facility] Last Admin: 09/13/16 09:52 Dose: 1 tab - Labs Labs: 09/13/16 07:11 09/13/16 07:11 PT 12.6 SECONDS (9.7-12.2) H 09/11/16 16:22 INR 1.1 09/11/16 16:22 APTT 32 SECONDS (21-34) 09/11/16 16:22 - Constitutional Appears: No Acute Distress - Head Exam Head Exam: ATRAUMATIC, NORMOCEPHALIC - Eye Exam Eye Exam: EOMI, Normal appearance, PERRL - ENT Exam ENT Exam: Mucous Membranes Moist - Neck Exam Neck Exam: absent: Thyromegaly Additional comments: no carotid bruit - Respiratory Exam Respiratory Exam: Clear to Ausculation Bilateral, NORMAL BREATHING PATTERN. absent: Rales, Rhonchi, Wheezes - Cardiovascular Exam Cardiovascular Exam: REGULAR RHYTHM, +S1, +S2, Murmur (systolic) - GI/Abdominal Exam GI & Abdominal Exam: Soft. absent: Guarding, Rigid, Tenderness - Extremities Exam Extremities Exam: Normal Capillary Refill. absent: Calf Tenderness, Pedal Edema Additional comments: slight hematoma 1inc x 2 inch on L dorsal foot. - Neurological Exam Neurological Exam: Alert, Awake, Normal Gait, Oriented x3 - Psychiatric Exam Psychiatric exam: Normal Affect, Normal Mood - Skin Skin Exam: Dry, Warm Assessment and Plan - Assessment and Plan (Free Text) Plan: 70 AA F with PMHx prior stent LAD (2009) on ASA only, ESRD, HTN admitted for chest pain during dialysis. pt is s/p LAD intervention with 2 Drug eluting stents (09/12/16). CAD Unstable angina - resolved - ASA, plavix, coreg 25 bid, rosuvastain 10 HTN - Amlodipine, hydralazine 225 tid DVT prophylasix - heparin sq q12 Disposition - Follow up with Dr. Winn in 1 week after discharge s/r/d/w Dr. Winn <Willem Winn - Last Filed: 09/13/16 23:04> Objective - Vital Signs/Intake and Output Vital Signs (last 24 hours): Temp Pulse Resp BP Pulse Ox 98.6 F 62 20 162/67 H 98 09/13/16 15:29 09/13/16 15:30 09/13/16 15:29 09/13/16 17:47 09/13/16 15:29 - Labs Labs: 09/13/16 07:11 09/13/16 07:11 PT 12.6 SECONDS (9.7-12.2) H 09/11/16 16:22 INR 1.1 09/11/16 16:22 APTT 32 SECONDS (21-34) 09/11/16 16:22 Assessment and Plan - Assessment and Plan (Free Text) Assessment: Patient seen and evaluated with the medical administrator Agree with the treatment plan
--- NOTE | 2016-09-13 14:37 | CP.PCM.DIS ---
<Jim Mensah - Last Filed: 09/13/16 14:44> Provider - Provider Date of Admission: 09/12/16 09:28 Attending physician: Jayesh Esparza DO Consults: 1. Consults Dr. Pa Hernández Time Spent in preparation of Discharge (in minutes): 45 Hospital Course - Lab Results Lab Results: Most Recent Lab Values WBC 7.1 K/uL (4.8-10.8) 09/13/16 07:11 RBC 3.47 Mil/uL (3.80-5.20) L 09/13/16 07:11 Hgb 10.7 g/dL (11.0-16.0) L 09/13/16 07:11 Hct 32.3 % (34.0-47.0) L 09/13/16 07:11 MCV 93.0 fL (81.0-99.0) 09/13/16 07:11 MCH 31.0 pg (27.0-31.0) 09/13/16 07:11 MCHC 33.3 g/dL (33.0-37.0) 09/13/16 07:11 RDW 17.0 % (11.5-14.5) H 09/13/16 07:11 Plt Count 135 K/uL (130-400) 09/13/16 07:11 MPV 8.0 fL (7.2-11.7) 09/13/16 07:11 Neut % (Auto) 77.5 % (50.0-75.0) H 09/13/16 07:11 Lymph % (Auto) 8.9 % (20.0-40.0) L 09/13/16 07:11 Stark % (Auto) 9.8 % (0.0-10.0) 09/13/16 07:11 Eos % (Auto) 2.9 % (0.0-4.0) 09/13/16 07:11 Baso % (Auto) 0.9 % (0.0-2.0) 09/13/16 07:11 Neut # 5.5 K/uL (1.8-7.0) 09/13/16 07:11 Lymph # 0.6 K/uL (1.0-4.3) L 09/13/16 07:11 Stark # 0.7 K/uL (0.0-0.8) 09/13/16 07:11 Eos # 0.2 K/uL (0.0-0.7) 09/13/16 07:11 Baso # 0.1 K/uL (0.0-0.2) 09/13/16 07:11 Neutrophils % (Manual) 84 % (50-75) H 09/13/16 07:11 Band Neutrophils % 1 % (0-2) 09/13/16 07:11 Lymphocytes % (Manual) 7 % (20-40) L 09/13/16 07:11 Monocytes % (Manual) 5 % (0-10) 09/13/16 07:11 Eosinophils % (Manual) 2 % (0-4) 09/13/16 07:11 Basophils % (Manual) 1 % (0-2) 09/13/16 07:11 Differential Comment 09/10/16 15:41 Platelet Estimate Normal (NORMAL) 09/13/16 07:11 Hypochromasia (manual) Slight 09/13/16 07:11 Poikilocytosis (manual Slight 09/13/16 07:11 Anisocytosis (manual) Slight 09/13/16 07:11 Macrocytosis (manual) Slight 09/13/16 07:11 PT 12.6 SECONDS (9.7-12.2) H 09/11/16 16:22 INR 1.1 09/11/16 16:22 APTT 32 SECONDS (21-34) 09/11/16 16:22 D-Dimer, Quantitative 654 ng/mlDDU (0-243) H 09/10/16 15:41 Sodium 136 mmol/L (132-148) 09/13/16 07:11 Potassium 4.4 mmol/L (3.6-5.2) 09/13/16 07:11 Chloride 95 mmol/L (98-107) L 09/13/16 07:11 Carbon Dioxide 31 mmol/L (22-30) H 09/13/16 07:11 Anion Gap 14 (10-20) 09/13/16 07:11 BUN 21 mg/dL (7-17) H 09/13/16 07:11 Creatinine 3.7 MG/DL (0.7-1.2) H 09/13/16 07:11 Est GFR ( Amer) 15 09/13/16 07:11 Est GFR (Non-Af Amer) 12 09/13/16 07:11 Random Glucose 97 mg/dL (65-105) 09/13/16 07:11 Hemoglobin A1c 4.7 % (4.2-6.5) 09/11/16 07:58 Calcium 9.0 mg/dl (8.6-10.4) 09/13/16 07:11 Phosphorus 3.7 mg/dL (2.5-4.5) 09/13/16 07:11 Magnesium 2.0 mg/dL (1.6-2.3) 09/13/16 07:11 Total Bilirubin 0.7 mg/dL (0.2-1.3) 09/13/16 07:11 AST 15 U/L (14-36) 09/13/16 07:11 ALT 11 U/L (9-52) 09/13/16 07:11 Alkaline Phosphatase 53 U/L (38-126) 09/13/16 07:11 Total Creatine Kinase 44 U/L (30-135) 09/11/16 07:58 CK-MB (Mass) 1.15 ng/mL (0.0-3.38) 09/11/16 07:58 Troponin I 0.0280 ng/mL (0.00-0.120) 09/10/16 15:41 Troponin I, Quant 0.0490 ng/mL (0.00-0.120) 09/11/16 07:58 Total Protein 6.8 g/dL (6.3-8.3) 09/13/16 07:11 Albumin 3.5 g/dL (3.5-5.0) 09/13/16 07:11 Globulin 3.3 gm/dL (2.2-3.9) 09/13/16 07:11 Albumin/Globulin Ratio 1.1 (1.0-2.1) 09/13/16 07:11 Triglycerides 82 mg/dL (0-149) 09/11/16 07:58 Cholesterol 98 mg/dL (0-199) 09/11/16 07:58 LDL Cholesterol Direct 37 mg/dL (0-129) 09/11/16 07:58 HDL Cholesterol 37 mg/dL (30-70) 09/11/16 07:58 TSH 3rd Generation 2.42 mIU/L (0.46-4.68) 09/11/16 07:58 Blood Type O POSITIVE 09/11/16 16:22 Antibody Screen Negative 09/11/16 16:22 - Hospital Course Hospital Course: admit date- 09/10/16 DC date- September 13/2017 Attending: Dr. Esparza Stable upon discharge Procedures- PCI at [facility], 2 stents LAD, dialysis No complications Consults 1. Cardiology- Dr. Winn 2. Nephrology- Dr. Hernández HPI: see h/p Labs: see lab data Hospital course 70 year old black female, with PMHx of ESRD, HTN, CAD, and stent placement in LAD, who presents to [facility] for chest pain Chest pain will continue telemetry EKG: NSR, Rate 83, No ST/T wave changes, Troponin: negative x 3 D-dimer 654 Oxygen 2L PRN CTA negative for PE Cardio consult: Dr. Winn, help appreciated -Hx of double-vessel disease, stent placement LAD Continue home meds: Crestor 20mg PO HS (substituted for home Lipitor) Lisinopril 20mg PO Daily, placed on hold >>>restarted on dc Carvedilol 25mg PO BID Norvasc 10mg PO Daily Hydralazine 25mg PO TID ASA 325mg in field, has been on 81 mg daily, got loading dose today, will restart 81 mg daily Clopidogrel 75mg PO Daily>> will discontinue>> will restart pt is s/p PCI at [facility], 2 stents placed in LAD ESRD Dry weight: 50.5 kg, 52.7 kg pre-dialysis, took off 2L during dialysis Schedule: T-Fri Nephrology: Dr. Pankaj Hernández, help appreciated - f/u recs received extra dialysis 6-1 in light of increased contrast load Elevated D-dimer D-Dimer 654 CT Angio (09/10/16): No PE. Cardiomegaly. CAD. Calcifications of Aorta. Incidental 17 mm focal ground-glass opacity in right lung apex. Recommend PET Scan, CT in 3 months, 9 months, and 24 months, or biopsy if indicated (see full report) dopplers negative Solitary Lung nodule CT Angio (09/10/16): No PE. Cardiomegaly. CAD. Calcifications of Aorta. Incidental 17 mm focal ground-glass opacity in right lung apex. Recommend PET Scan, CT in 3 months, 9 months, and 24 months, or biopsy if indicated (see full report) Pt aware of need for follow-up as outpatient HTN (hypertension) Hypertensive on admission, down-trending Lisinopril 20mg PO Daily, placed on hold>> restarted on dc Carvedilol 25mg PO BID Norvasc 10mg PO Daily Hydralazine 25mg PO TID Thrombocytopenia Platelets: 101k on admission Monitor Hyperlipidemia Crestor 20mg PO HS f/u fasting cholesterol panel Electrolyte abnormalities pt hypokalemic on admission, will continue to monitor and replete as needed Prophylactic measure Pepcid 20mg PO BID SCDs Heparin 5000u Q12H Dispo: S/P PCI at [facility] with Dr. Winn. Will f/u echo results and pt has gotten extra dialysis; will be discharged home Discharge instructions Pt is medically stable for dc. Please return if condition worsens. Please f/u with Dr. Winn within 1 week. Please f/u with primary care and nephrology. Discharge meds 1. asa 81 mg po daily 2. plavix 75 mg po daily 3. cincalcet 30 mg po daily 4. renvela 5. nephro caps 6. norvasc 10 mg po daily 7. coreg 25 mg po bid 8. hydralazine 25 mg po tid 9. lisinopril 20 mg daily - Date & Time of H&P Date of H&P: 09/10/16 Time of H&P: 18:57 Discharge Exam - Head Exam Head Exam: ATRAUMATIC, NORMOCEPHALIC - Eye Exam Eye Exam: EOMI - ENT Exam ENT Exam: Mucous Membranes Moist - Neck Exam Neck exam: Full Rom, Normal Inspection - Respiratory Exam Respiratory Exam: NORMAL BREATHING PATTERN, UNREMARKABLE - Cardiovascular Exam Cardiovascular Exam: +S1, +S2 - GI/Abdominal Exam GI & Abdominal Exam: Normal Bowel Sounds - Exam Additional comments: Groin site of cath clean/dry/intact - Extremities Exam Extremities exam: full ROM, normal inspection - Neurological Exam Neurological exam: Alert, CN II-XII Intact, Oriented x3 - Psychiatric Exam Psychiatric exam: Normal Affect, Normal Mood - Skin Skin Exam: Dry, Intact, Normal Color, Warm Discharge Plan - Discharge Medications Prescriptions: amLODIPine [Norvasc] 10 mg PO Q24H #30 tab Aspirin [Ecotrin] 81 mg PO STAT #30 Atorvastatin [Lipitor] 40 mg PO HS #30 Carvedilol [Coreg] 25 mg PO BID #30 tab Clopidogrel [Plavix] 75 mg PO DAILY #30 tab Lisinopril [Zestril] 20 mg PO DAILY #30 tab Sevelamer Carbonate [Renvela] 800 mg PO TIDCC #90 tab Vitamin B Complex/Vit C/Folic [Nephro-Enedina] 1 tab PO DAILY #30 tab - Follow Up Plan Condition: STABLE Disposition: HOME/ ROUTINE Instructions: Angina (DC), Heart Failure (DC), Chest Pain (DC), Dialysis Diet ( DC), End Stage Kidney Disease (DC), Heart Catheterization (DC), Coronary Intravascular Stent Placement (DC) Additional Instructions: Please follow up with Dr. Winn. Please return if condition worsens. Please follow up with primary care doctor. Referrals: Willem Winn MD [Staff Provider] - <Jayesh Esparza - Last Filed: 09/14/16 10:46> Provider - Provider Date of Admission: 09/12/16 09:28 Attending physician: Jayesh Esparza, Hospital Course - Lab Results Lab Results: Most Recent Lab Values WBC 7.1 K/uL (4.8-10.8) 09/13/16 07:11 RBC 3.47 Mil/uL (3.80-5.20) L 09/13/16 07:11 Hgb 10.7 g/dL (11.0-16.0) L 09/13/16 07:11 Hct 32.3 % (34.0-47.0) L 09/13/16 07:11 MCV 93.0 fL (81.0-99.0) 09/13/16 07:11 MCH 31.0 pg (27.0-31.0) 09/13/16 07:11 MCHC 33.3 g/dL (33.0-37.0) 09/13/16 07:11 RDW 17.0 % (11.5-14.5) H 09/13/16 07:11 Plt Count 135 K/uL (130-400) 09/13/16 07:11 MPV 8.0 fL (7.2-11.7) 09/13/16 07:11 Neut % (Auto) 77.5 % (50.0-75.0) H 09/13/16 07:11 Lymph % (Auto) 8.9 % (20.0-40.0) L 09/13/16 07:11 Stark % (Auto) 9.8 % (0.0-10.0) 09/13/16 07:11 Eos % (Auto) 2.9 % (0.0-4.0) 09/13/16 07:11 Baso % (Auto) 0.9 % (0.0-2.0) 09/13/16 07:11 Neut # 5.5 K/uL (1.8-7.0) 09/13/16 07:11 Lymph # 0.6 K/uL (1.0-4.3) L 09/13/16 07:11 Stark # 0.7 K/uL (0.0-0.8) 09/13/16 07:11 Eos # 0.2 K/uL (0.0-0.7) 09/13/16 07:11 Baso # 0.1 K/uL (0.0-0.2) 09/13/16 07:11 Neutrophils % (Manual) 84 % (50-75) H 09/13/16 07:11 Band Neutrophils % 1 % (0-2) 09/13/16 07:11 Lymphocytes % (Manual) 7 % (20-40) L 09/13/16 07:11 Monocytes % (Manual) 5 % (0-10) 09/13/16 07:11 Eosinophils % (Manual) 2 % (0-4) 09/13/16 07:11 Basophils % (Manual) 1 % (0-2) 09/13/16 07:11 Differential Comment 09/10/16 15:41 Platelet Estimate Normal (NORMAL) 09/13/16 07:11 Hypochromasia (manual) Slight 09/13/16 07:11 Poikilocytosis (manual Slight 09/13/16 07:11 Anisocytosis (manual) Slight 09/13/16 07:11 Macrocytosis (manual) Slight 09/13/16 07:11 PT 12.6 SECONDS (9.7-12.2) H 09/11/16 16:22 INR 1.1 09/11/16 16:22 APTT 32 SECONDS (21-34) 09/11/16 16:22 D-Dimer, Quantitative 654 ng/mlDDU (0-243) H 09/10/16 15:41 Sodium 136 mmol/L (132-148) 09/13/16 07:11 Potassium 4.4 mmol/L (3.6-5.2) 09/13/16 07:11 Chloride 95 mmol/L (98-107) L 09/13/16 07:11 Carbon Dioxide 31 mmol/L (22-30) H 09/13/16 07:11 Anion Gap 14 (10-20) 09/13/16 07:11 BUN 21 mg/dL (7-17) H 09/13/16 07:11 Creatinine 3.7 MG/DL (0.7-1.2) H 09/13/16 07:11 Est GFR ( Amer) 15 09/13/16 07:11 Est GFR (Non-Af Amer) 12 09/13/16 07:11 Random Glucose 97 mg/dL (65-105) 09/13/16 07:11 Hemoglobin A1c 4.7 % (4.2-6.5) 09/11/16 07:58 Calcium 9.0 mg/dl (8.6-10.4) 09/13/16 07:11 Phosphorus 3.7 mg/dL (2.5-4.5) 09/13/16 07:11 Magnesium 2.0 mg/dL (1.6-2.3) 09/13/16 07:11 Total Bilirubin 0.7 mg/dL (0.2-1.3) 09/13/16 07:11 AST 15 U/L (14-36) 09/13/16 07:11 ALT 11 U/L (9-52) 09/13/16 07:11 Alkaline Phosphatase 53 U/L (38-126) 09/13/16 07:11 Total Creatine Kinase 44 U/L (30-135) 09/11/16 07:58 CK-MB (Mass) 1.15 ng/mL (0.0-3.38) 09/11/16 07:58 Troponin I 0.0280 ng/mL (0.00-0.120) 09/10/16 15:41 Troponin I, Quant 0.0490 ng/mL (0.00-0.120) 09/11/16 07:58 Total Protein 6.8 g/dL (6.3-8.3) 09/13/16 07:11 Albumin 3.5 g/dL (3.5-5.0) 09/13/16 07:11 Globulin 3.3 gm/dL (2.2-3.9) 09/13/16 07:11 Albumin/Globulin Ratio 1.1 (1.0-2.1) 09/13/16 07:11 Triglycerides 82 mg/dL (0-149) 09/11/16 07:58 Cholesterol 98 mg/dL (0-199) 09/11/16 07:58 LDL Cholesterol Direct 37 mg/dL (0-129) 09/11/16 07:58 HDL Cholesterol 37 mg/dL (30-70) 09/11/16 07:58 TSH 3rd Generation 2.42 mIU/L (0.46-4.68) 09/11/16 07:58 Blood Type O POSITIVE 09/11/16 16:22 Antibody Screen Negative 09/11/16 16:22 Attending/Attestation - Attestation I have personally seen and examined this patient.: Yes I have fully participated in the care of the patient.: Yes I have reviewed all pertinent clinical information, including history, physical exam and plan: Yes Notes (Text): Medical Attending: Agree with the above note by the resident. The patient was seen and examined by me. Agree with the above. As mentioned before [place] [facility] [place] two [place]. She needs to continue with Plavix, ASA, statin and BP medications She underwent extra HD since she was getting IV contrast during these cardiac studies. She had HD after HD When we saw her, she understands she needs to follow up with cardiology. She denied chest pain, she reported feeling well. No chest pain. thank you Jayesh Esparza
[2016-09-13 15:31] VITALS: TEMP 98.6; O2SAT 98
[2016-09-13 16:26] VITALS: PULSE 62
[2016-09-13 17:49] VITALS: BP 162/67
--- NOTE | 2016-09-14 10:20 | CARD ---
APPROVED REPORT EXAM: Two-dimensional and M-mode echocardiogram with Doppler and color Doppler. Other Information Quality : GoodRhythm : NSR INDICATION Dyspnea Stent 2009 - Family history of HD-CAD-End stage of renal Diease RISK FACTORS Hypertension M-Mode DIMENSIONS RVDd1.55 (2.1-3.2cm)Left Atrium (MM)3.19 (2.5-4.0cm) IVSd0.88 (0.7-1.1cm)Aortic Root2.37 (2.2-3.7cm) LVDd4.98 (4.0-5.6cm)Aortic Cusp Exc.1.76 (1.5-2.0cm) PWd1.18 (0.7-1.1cm)FS (%) 29 % LVDs3.55 (2.0-3.8cm)LVEF (%)55 (>50%) Mitral Valve MV E Jfrryksg951.8cm/sMV A Dluuitaa492.1cm/sE/A ratio1.0 TDI E/Lateral E'0.0E/Medial E'0.0 Tricuspid Valve TR Peak [id number]/sTR Peak [id number] LEFT VENTRICLE The left ventricle is normal size. There is mild concentric left ventricular hypertrophy. The left ventricular function is normal. The left ventricular ejection fraction is 65-70% There is normal LV segmental wall motion. The left ventricular diastolic function is normal. RIGHT VENTRICLE The right ventricle is normal size. There is normal right ventricular wall thickness. The right ventricular systolic function is normal. ATRIA The left atrium size is normal. The right atrium size is normal. 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 No aortic regurgitation is present. There is no aortic valvular stenosis. There is no aortic valvular vegetation. MITRAL VALVE THE MV LEAFLETS ARE MILDLY CALCIFIED. THERE IS NO RESTRICTION OF THE LEAFLETS. There is no evidence of mitral valve prolapse. There is no mitral valve stenosis. Mitral regurgitation is mild to moderate. TRICUSPID VALVE The tricuspid valve is normal in structure. There is mild tricuspid regurgitation. RAP = 15 PAP = 40-45 There is no tricuspid valve prolapse or vegetation. There is no tricuspid valve stenosis. PULMONIC VALVE The pulmonary valve is normal in structure. There is no pulmonic valvular regurgitation. There is no pulmonic valvular stenosis. GREAT VESSELS The aortic root is normal in size. The ascending aorta is normal in size. The pulmonary artery is normal. THE IVC IS DILATED WITH DECREASED COLLAPSE PERICARDIAL EFFUSION There is no pericardial effusion. <Conclusion> The left ventricular ejection fraction is 65-70% There is mild concentric left ventricular hypertrophy. The left ventricular diastolic function is normal. 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 THERE IS NO RESTRICTION OF THE LEAFLETS. The aortic valve is mildly calcified. Mitral regurgitation is mild to moderate. There is mild tricuspid regurgitation. PAP = 40-45 RAP = 15 THE IVC IS DILATED WITH DECREASED COLLAPSE
--- NOTE | 2016-09-15 21:33 | CARD ---
APPROVED REPORT EKG Measurement Heart [id number] <Conclusion> Normal sinus rhythm Left atrial enlargement Left ventricular hypertrophy with repolarization abnormality Prolonged QT Abnormal ECG
== END 2016-09-13 18:47 | disposition home or self-care (01) | DRG 246 ==
LOC: C.ER 14:10 → C.9E 17:19 → C.6T 19:04 → MERGE 09-12 09:28 → OBSVTOIN 09-12 09:28
PROVIDERS: ADMIT Hospitalist; ATTEND Hospitalist
PROC: 4A023N7 Measurement of Cardiac Sampling and Pressure, Left Heart, Percutaneous Approach (ICD-10-PCS; 2016-09-11)
PROC: B2111ZZ Fluoroscopy of Multiple Coronary Arteries using Low Osmolar Contrast (ICD-10-PCS; 2016-09-11)
PROC: 5A1D00Z (ICD-10-PCS; 2016-09-11)
PROC: 027035Z Dilation of Coronary Artery, One Artery with Two Drug-eluting Intraluminal Devices, Percutaneous Approach (ICD-10-PCS; principal; 2016-09-12)
DX: I25.110 Atherosclerotic heart disease of native coronary artery with unstable angina pectoris (principal); N18.6 End stage renal disease; I13.2 Hypertensive heart and chronic kidney disease with heart failure and with stage 5 chronic kidney disease, or end stage renal disease; D69.6 Thrombocytopenia, unspecified; T82.855A Stenosis of coronary artery stent, initial encounter; E87.6 Hypokalemia; I50.9 Heart failure, unspecified; E78.5 Hyperlipidemia, unspecified; Y83.1 Surgical operation with implant of artificial internal device as the cause of abnormal reaction of the patient, or of later complication, without mention of misadventure at the time of the procedure; Z99.2 Dependence on renal dialysis; Z82.49 Family history of ischemic heart disease and other diseases of the circulatory system; Z83.3 Family history of diabetes mellitus; K21.9 Gastro-esophageal reflux disease without esophagitis; R91.1 Solitary pulmonary nodule

== ENCOUNTER 2016-10-11 14:07 | Inpatient (IN) | payer MEDICARE, BC ==
--- NOTE | 2016-10-11 14:57 | C.PDOC ---
History Of Present Illness 70 y/o female BIBA status post trip and fall. Patient states she was walking, and due to a cataract in her right eye, tripped on the base of a statue falling forward and hitting her right face on concrete. Denies LOC. Currently c/o headache, right facial pain, right wrist pain, and right knee pain. Denies chest pain, SOB, abdominal pain, nausea/vomiting. Notes history of end stage renal disease, last dialysis was yesterday. Currently on aspirin and Plavix. Patient states she is UTD with all vaccinations, including tetanus. - HPI Time Seen by Provider: 10/11/16 14:21 Chief Complaint (Nursing): Trauma History Per: Patient, EMS History/Exam Limitations: no limitations Injury Occurred (Timing): Just Before Arrival Location Of Injury: Right: Face, Knee, Wrist Severity: Moderate Recent travel outside of the [place]: No Past Medical History Reviewed: Historical Data, Nursing Documentation, Vital Signs Vital Signs: Last Vital Signs Temp 98.1 F 10/16/16 12:00 Pulse 54 L 10/16/16 12:00 Resp 16 10/16/16 12:00 BP 150/54 L 10/16/16 12:00 Pulse Ox 98 10/16/16 12:00 - Medical History PMH: CHF, Fractures (l ankle 2008), HTN, Hypercholesterolemia, End Stage Renal Disease, Chronic Kidney Disease Surgical History: Coronary Stent (CARDIAC CATH 09/12/2016) - [facility] Procedures DILATION OF 1 COR ART WITH 2 DRUG-ELUT, PERC APPROACH (09/12/16) FLUOROSCOPY OF MULT COR ART USING L OSM CONTRAST (09/12/16) MEASURE OF CARDIAC SAMPL & PRESSURE, L HEART, PERC APPROACH (09/12/16) PERFORMANCE OF URINARY FILTRATION, SINGLE (09/12/16) Family History: States: No Known Family Hx - Social History Hx Alcohol Use: No Hx Substance Use: No - Immunization History Hx Influenza Vaccination: Yes Hx Pneumococcal Vaccination: Yes Review Of Systems Except As Marked, All Systems Reviewed And Found Negative. Constitutional: Negative for: Fever, Chills Cardiovascular: Negative for: Chest Pain Respiratory: Negative for: Cough, Shortness of Breath, Wheezing Gastrointestinal: Negative for: Nausea, Vomiting, Abdominal Pain Musculoskeletal: Positive for: Other (right wrist pain, right knee pain, facial pain). Negative for: Neck Pain Skin: Negative for: Rash Neurological: Positive for: Headache. Negative for: Numbness, Dizziness Physical Exam - Physical Exam Appears: Non-toxic, Other (in moderate pain) Skin: Warm, Dry, Other (see head/face) Head: Normacephalic, Other (Significant right sided facial swelling primarily at zygomaand mandibular areas, (+) periorbital ecchymosis, (+) right cheek abrasion ) Eye(s): bilateral: PERRL, EOMI (no pain with EOM movement), left: Other Ear(s): Bilateral: Normal ((-) hemotympanum, (-) Martin sign) Nose: Normal, No Epistaxis, No Deformity, No Septal Hematoma Oral Mucosa: Moist, Other (dried blood inside the mouth) Tongue: Normal Appearing, No Laceration Lips: Normal Appearing, No Laceration Throat: Normal, No Erythema, No Exudate Neck: Normal, Normal ROM, No Midline Cervical Tenderness, No Paracervical Tenderness, No Step Off Deformity, Supple Cardiovascular: Rhythm Regular Respiratory: Normal Breath Sounds, No Rales, No Rhonchi, No Wheezing Gastrointestinal/Abdominal: Normal Exam, Bowel Sounds, Soft, No Tenderness, No Guarding, No Rebound Back: Normal Inspection, No Vertebral Tenderness Extremity: Capillary Refill (< 2 sec all digits ), Deformity (R wrist deformity , tender to palpation), Other (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 Right elbow normal: no tenderness, normal ROM. Right knee mildly tender w/o deformity, normal ROM, LUE AV fistula with palpable thrill. ) Extremity: Bilateral: Normal Color And Temperature Pulses: Left Radial: Normal, Right Radial: Normal, Left Dorsalis Pedis: Normal, Right Dorsalis Pedis: Normal Neurological/Psych: Oriented x3, Normal Speech, Normal Cognition, Normal Cranial Nerves, No Cerebellar Signs, Normal Motor, Normal Sensation, Normal Reflexes ED Course And Treatment - Laboratory Results Result Diagrams: 10/16/16 06:27 10/16/16 06:27 ECG: Interpreted By Me, Viewed By Me (NSR 76 bpm, normal axis, LVH, no acute ST/ T wave changes) ECG Interpretation: No Acute Changes O2 Sat by Pulse Oximetry: 98 (RA) Pulse Ox Interpretation: Normal - CT Scan/US CT HEAD Other Rad Studies (CT/US): Read By Radiologist, Radiology Report Reviewed CT/US Interpretation: Accession No. : [id number]. Patient Name / ID : YONI JAIN / [id number]. Exam Date : 10/11/2016 15:34:19 ( Approved ). Study Comment : Sex / Age : F / 70Y. Creator : Jayesh Fernandez MD. Dictator : Jayesh Fernandez MD. Shot Polisher And Inspector : Relationship Assoc : Jayesh Fernandez MD. Approver2 : Report Date : 10/11/2016 15:57:42. My Comment : . PROCEDURE : CT HEAD WITHOUT CONTRAST. HISTORY: fall, r/o bleed. COMPARISON: None available. TECHNIQUE: Axial computed tomography images were obtained through the head/brain without intravenous contrast. Radiation dose: Total exam DLP = 882.97 mGy-cm. This CT exam was performed using one or more of the following dose reduction techniques: Automated exposure control, adjustment of the mA and/ or kV according to patient size, and/or use of iterative reconstruction technique. FINDINGS: HEMORRHAGE: There is bilateral convexity subarachnoid hemorrhage. There is questionable small parenchymal hemorrhagic contusion high bilateral frontoparietal deep white matter. Possible small parenchymal hemorrhagic contusion left frontal. There is questionable minimal extra-axial blood seen in the anterior interhemispheric fissure, likely subarachnoid. This is seen on series 4, image 15 and 16. . This question of parenchymal hemorrhage could be more accurately determined on the basis of magnetic resonance imaging. There is no intraventricular hemorrhage seen. BRAIN: No intracranial mass. No evidence of acute infarct. No significant atrophy. Mild periventricular white matter lucency consistent with age-related microvascular ischemic change. VENTRICLES: Unremarkable. No hydrocephalus. CALVARIUM: Unremarkable. PARANASAL SINUSES: Unremarkable as visualized. No significant inflammatory changes. MASTOID AIR CELLS: Unremarkable as visualized. No inflammatory changes. OTHER FINDINGS: None. IMPRESSION: Bilateral convexity subarachnoid hemorrhage. Possible small hemorrhagic contusion frontoparietal bilaterally and possibly left frontal. Minimal subarachnoid blood in the anterior interhemispheric fissure no intraventricular hemorrhage. CT MAXILLOFACIAL Other Rad Studies (CT/US): Read By Radiologist, Radiology Report Reviewed CT/US Interpretation: Accession No. : [id number]. Patient Name / ID : YONI JAIN / [id number]. Exam Date : 10/11/2016 15:28:45 ( Approved ). Study Comment : Sex / Age : F / 70Y. Creator : Rhett Limon MD. Dictator : Rhett Limon MD. Shot Polisher And Inspector : Relationship Assoc : Rhett Limon MD. Approver2 : Report Date : 10/11/2016 16:08:49. My Comment : . PROCEDURE: CT scan maxillofacial skeleton dated 10/11/2016. HISTORY: Status post fall with facial trauma. COMPARISON: Comparison/ correlation made with concurrent CT scan brain. TECHNIQUE: Total exam DLP = 780.33 mGy-cm. This CT exam was performed using one or more of the following dose reduction techniques : Automated exposure control, adjustment of the mA and/or kV according to patient size, and/or use of iterative reconstruction technique. FINDINGS: Findings: The current study reveals significant right-sided facial soft tissue swelling. . Swelling extends from just below the level of the mandible superiorly over the mandible, into the right premaxillary soft tissues, medially over the upper lower lip regions and posteriorly over the zygoma and zygomatic arch. Soft tissue swelling also extends into the periorbital, lateral periorbital and to a lesser degree right supraorbital and frontotemporal soft tissues. No definitive evidence of acute maxillofacial skeletal fracture so far as can be seen. The mandible appears intact. The bony orbits are intact. Intraorbital contents unremarkable. Globes intact and right lens is appropriately located. There are no retrobulbar hemorrhages or collections. Optic nerves and extraocular musculature unremarkable. Patient is status post left cataract surgery. Right orbit and contents unremarkable as well. The paranasal sinuses are well well-developed and currently well- aerated. There are no fluid levels seen to suggest acute sinusitis. Minor mucosal thickening right maxillary antrum. The remaining visualized paranasal sinuses for free of significant mucoperiosteal inflammation. There are no bony destructive or sclerotic change. Incidental note made of a dental caries and radicular cystic changes involving the right 2nd maxillary molar and questionable of localized dental caries seen involving last left mandibular molar tooth. Incidental note made of partially calcified atherosclerotic plaque changes both carotid bifurcations and proximal internal carotid arteries. Multilevel degenerative spondylosis of the cervical spine. There is also mild reversal of the normal cervical lordosis which could be due to patient positioning gantry however underlying element of muscle spasm may contribute. Impression: Significant right-sided facial soft tissue swelling. No definitive evidence of of right-sided facial fractures seen. Minor mucosal thickening right maxillary antrum. Status post left cataract surgery. See above discussion for additional details an incidental findings. The dental caries with radicular cystic changes as detailed above RIGHT WRIST XRAY Other Rad Studies (CT/US): Interpreted By Me, Read By Radiologist (distal radius fx, ulbar styloid fx) RIGHT HAND X-RAY Other Rad Studies (CT/US): Read By Radiologist, Radiology Report Reviewed CT/US Interpretation: No acute fracture. 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 POST-REDUCTION WRIST X-RAY Other Rad Studies (CT/US): Read By Radiologist, Radiology Report Reviewed CT/US Interpretation: IMPRESSION: Close reduction comminuted distal radial fracture and ulnar styloid process fracture. Progress Note: Bloodwork, CT head and face, x-rays ordered and reviewed. Patient given IV morphine for pain. Neurosurgery paged at 16:20, 16:36. Discussed with a/c technician Dr. Concepcion - agrees with ICU admission. Dr. Hernández paged at 16:[address] Grimm consult entered for orthopedics , pending call back. Reevaluation Time: 16:50 Reassessment Condition: Improved (Patient resting comfortably, pain has improved.) - Physician Consult Information Physician Contacted: Kunal Yost Outcome Of Conversation: Discussed patient with Dr. Yost, does not think patient needs transfer to trauma or intervention at this time - recommends repeat CT scan, monitoring. Orthopedic Time Performed: 17:30 Time Out: Side verified Procedure: Splint, Fracture reduction Type: Volar Location: Right, Wrist Consent obtained: Verbal Performed by: Attending Physician Diagnosis: Fracture Type: Closed, Displaced Anesthetic Technique: Local (HEMATOMA BLOCJK 1% LIDOCAINE 5ML) Anesthetic: Lidocaine 1% Capillary refill: Normal Distal Sensation: Normal Distal Motor Function: Normal Capillary Refill: Normal Compartment: Normal Distal Sensation: Normal Distal Motor Function: Normal Post-reduction Radiograph: Reduced Complications: FINER TRAPS USED FOR REDUCTION Patient tolerated procedure: Well Disposition Counseled Patient/Family Regarding: Studies Performed, Diagnosis, Need For Followup, Rx Given - Disposition Disposition: HOSPITALIZED Disposition Time: 17:06 Condition: FAIR - POA Present On Arrival: None - Clinical Impression Clinical Impression: ESRD (end stage renal disease) on dialysis, Closed head injury, Subarachnoid hemorrhage, Distal radius fracture, Fracture of ulnar styloid Critical Care Time - Critical Care Note Total Time (in mins): 45 Documented critical care: time excludes all time spent performing seperately billable procedures. - Scribe Statement The provider has reviewed the documentation as recorded by the Rian OLIVARES Provider Attestation: All medical record entries made by the Ulisesibedmund were at my direction and personally dictated by me. I have reviewed the chart and agree that the record accurately reflects my personal performance of the history, physical exam, medical decision making, and the department course for this patient. I have also personally directed, reviewed, and agree with the discharge instructions and disposition. Decision To Admit - Pt Status Changed To: Hospital Disposition Of: Inpatient - Admit Certification Admit to Inpatient:: After my assessment, the patient will require hospitalization for at least two midnights. This is because of the severity of symptoms shown, intensity of services needed, and/or the medical risk in this patient being treated as an outpatient. - InPatient: Physician Admission Certification: I certify that this patient requires 2 or more midnights of care for the following reason:: see notes - . Bed Request Type: ICU Admitting Physician: Kali Moya Jr. Patient Diagnosis: Closed head injury, Subarachnoid hemorrhage, Distal radius fracture, Fracture of ulnar styloid, ESRD (end stage renal disease) on dialysis
[2016-10-11 15:28] LABS: BASO # 0.1 K/uL (0.0-0.2); BASO % 1.3 % (0.0-2.0); EOS # 0.4 K/uL (0.0-0.7); EOS % 5.4 % (0.0-4.0); HEMOGLOBIN 9.8 g/dL (11.0-16.0); LYMPH # 0.8 K/uL (1.0-4.3); LYMPH % 10.4 % (20.0-40.0); MEAN CELL VOLUME 91.9 fL (81.0-99.0); MEAN CORPUSCULAR HEMOGLOBIN 29.4 pg (27.0-31.0); MEAN PLATELET VOLUME 7.4 fL (7.2-11.7); MONO # 0.7 K/uL (0.0-0.8); MONO % 9.1 % (0.0-10.0); NEUT # 5.5 K/uL (1.8-7.0); NEUT % 73.8 % (50.0-75.0); NRBC % 0.1 % (0.0-2.0); RBC 3.32 Mil/uL (3.80-5.20); RED CELL DISTRIBUTION WIDTH 16.6 % (11.5-14.5); WHITE BLOOD COUNT 7.5 K/uL (4.8-10.8)
[2016-10-11 15:35] LABS: INR 1.2; PROTHROMBIN TIME 13.4 SECONDS (9.7-12.2)
[2016-10-11 15:38] LABS: ALBUMIN 3.7 g/dL (3.5-5.0)
[2016-10-11 15:41] LABS: ALB/GLOB RATIO 0.9 (1.0-2.1)
[2016-10-11 15:42] LABS: CALCIUM 8.6 mg/dl (8.6-10.4)
--- NOTE | 2016-10-11 15:59 | CT ---
PROCEDURE: CT HEAD WITHOUT CONTRAST. HISTORY: fall, r/o bleed COMPARISON: None available. TECHNIQUE: Axial computed tomography images were obtained through the head/brain without intravenous contrast. Radiation dose: Total exam DLP = 882.97 mGy-cm. This CT exam was performed using one or more of the following dose reduction techniques: Automated exposure control, adjustment of the mA and/or kV according to patient size, and/or use of iterative reconstruction technique. FINDINGS: HEMORRHAGE: There is bilateral convexity subarachnoid hemorrhage. There is questionable small parenchymal hemorrhagic contusion high bilateral frontoparietal deep white matter. Possible small parenchymal hemorrhagic contusion left frontal. There is questionable minimal extra-axial blood seen in the anterior interhemispheric fissure, likely subarachnoid. This is seen on series 4, image 15 and 16. . This question of parenchymal hemorrhage could be more accurately determined on the basis of magnetic resonance imaging. There is no intraventricular hemorrhage seen. BRAIN: No intracranial mass. No evidence of acute infarct. No significant atrophy. Mild periventricular white matter lucency consistent with age-related microvascular ischemic change. VENTRICLES: Unremarkable. No hydrocephalus. CALVARIUM: Unremarkable. PARANASAL SINUSES: Unremarkable as visualized. No significant inflammatory changes. MASTOID AIR CELLS: Unremarkable as visualized. No inflammatory changes. OTHER FINDINGS: None. IMPRESSION: Bilateral convexity subarachnoid hemorrhage. Possible small hemorrhagic contusion frontoparietal bilaterally and possibly left frontal. Minimal subarachnoid blood in the anterior interhemispheric fissure no intraventricular hemorrhage.
--- NOTE | 2016-10-11 16:03 | RAD ---
PROCEDURE: Right Knee Radiographs. HISTORY: right knee pain s/p fall COMPARISON: None. FINDINGS: BONES: Normal. No fracture. JOINTS: Normal. No osteoarthritis. JOINT EFFUSION: None. OTHER FINDINGS: None. IMPRESSION: Normal radiographs of the right knee.
--- NOTE | 2016-10-11 16:05 | RAD ---
PROCEDURE: Right Thumb radiographs. HISTORY: right hand pain/fall COMPARISON: None. TECHNIQUE: AP radiograph of the right hand, as well as spot oblique and lateral images of thumb were obtained. FINDINGS: RIGHT THUMB: Normal right thumb, without fracture or focal lesion. Remainder of the right hand (as seen on the AP view) grossly unremarkable. JOINTS: Mild osteoarthritis 1st carpal -metacarpal articulation. 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 Remaining joint spaces and articular surfaces are preserved. SOFT TISSUES: Normal. OTHER FINDINGS: None. IMPRESSION: No acute fracture. 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
--- NOTE | 2016-10-11 16:06 | RAD ---
PROCEDURE: Right Wrist Radiographs. HISTORY: right wrist fx COMPARISON: None. FINDINGS: BONES: Comminuted, mildly displaced transverse fracture of the distal radius. No definite intra-articular extension. Displaced fracture of the ulnar styloid process. No carpal fracture identified. Scapholunate interval appears normal. JOINTS: Normal. No dislocation. SOFT TISSUES: Normal. OTHER FINDINGS: None. IMPRESSION: Comminuted mildly displaced transverse fracture distal radius. Displaced ulnar styloid process fracture.
--- NOTE | 2016-10-11 16:13 | CT ---
PROCEDURE: CT scan maxillofacial skeleton dated 10/11/2016 HISTORY: Status post fall with facial trauma. COMPARISON: Comparison/ correlation made with concurrent CT scan brain TECHNIQUE: Total exam DLP = 780.33 mGy-cm. This CT exam was performed using one or more of the following dose reduction techniques: Automated exposure control, adjustment of the mA and/or kV according to patient size, and/or use of iterative reconstruction technique. FINDINGS: Findings: The current study reveals significant right-sided facial soft tissue swelling. . Swelling extends from just below the level of the mandible superiorly over the mandible, into the right premaxillary soft tissues, medially over the upper lower lip regions and posteriorly over the zygoma and zygomatic arch. Soft tissue swelling also extends into the periorbital, lateral periorbital and to a lesser degree right supraorbital and frontotemporal soft tissues. No definitive evidence of acute maxillofacial skeletal fracture so far as can be seen. The mandible appears intact. The bony orbits are intact. Intraorbital contents unremarkable. Globes intact and right lens is appropriately located. There are no retrobulbar hemorrhages or collections. Optic nerves and extraocular musculature unremarkable. Patient is status post left cataract surgery. Right orbit and contents unremarkable as well. The paranasal sinuses are well well-developed and currently well-aerated. There are no fluid levels seen to suggest acute sinusitis. Minor mucosal thickening right maxillary antrum. The remaining visualized paranasal sinuses for free of significant mucoperiosteal inflammation. There are no bony destructive or sclerotic change. Incidental note made of a dental caries and radicular cystic changes involving the right 2nd maxillary molar and questionable of localized dental caries seen involving last left mandibular molar tooth. Incidental note made of partially calcified atherosclerotic plaque changes both carotid bifurcations and proximal internal carotid arteries. Multilevel degenerative spondylosis of the cervical spine. There is also mild reversal of the normal cervical lordosis which could be due to patient positioning gantry however underlying element of muscle spasm may contribute. Impression: Significant right-sided facial soft tissue swelling. No definitive evidence of of right-sided facial fractures seen. Minor mucosal thickening right maxillary antrum. Status post left cataract surgery. See above discussion for additional details an incidental findings. The dental caries with radicular cystic changes as detailed above
[2016-10-11] MEDS ORDERED: Lidocaine 1% Inj (20ml) INFIL ONE (16:23)
[2016-10-11] MEDS ORDERED: Sodium Chloride 0.9% 500 ML IV ONE ×2 (16:31→16:38)
[2016-10-11] MEDS ORDERED: Lidocaine 1% Inj (20ml) ONE (16:38)
--- NOTE | 2016-10-11 18:13 | RAD ---
PROCEDURE: Right Wrist Radiographs. HISTORY: postreduction COMPARISON: 10/11/2016 at 3:43 p.m. FINDINGS: BONES: The patient is status post close reduction of distal radial fracture. Once again, note is made of a comminuted transverse distal radial fracture. There is a minimally displaced fracture of the ulnar styloid process. There is no dislocation. JOINTS: Radiocarpal articulation grossly preserved. Intercarpal articulations are preserved. Normal carpal alignment is maintained. SOFT TISSUES: Normal. OTHER FINDINGS: None. IMPRESSION: Close reduction comminuted distal radial fracture and ulnar styloid process fracture.
--- NOTE | 2016-10-11 20:56 | CP.PCM.CON ---
History of Present Illness - History of Present Illness History of Present Illness: 70 y/o female with h/o CAD,s/p stents,HTN,CHF,Hyperlipidemia, ESRD on Hemodialysis admitted with right forearm fractures,facial trauma and bilateral subdural hemtoma. Patient was walking, and due to a cataract in her right eye, tripped falling forward and hitting her right face on concrete. Denies LOC. Currently C/o face pain and right forearm pain. Denies chest pain, SOB, abdominal pain, nausea/vomiting. Last dialysis was yesterday. On aspirin and Plavix s/p cardiac stent. Review of Systems - Constitutional Constitutional: absent: Anorexia, Chills - EENT Eyes: absent: Blurred Vision, Pain Nose/Mouth/Throat: Mouth Pain. absent: Nose Pain, Sore Throat Additional comments: Cataract right eye - Cardiovascular Cardiovascular: absent: Chest Pain, Edema, Irregular Heart Rhythm, Lightheadedness - Respiratory Respiratory: absent: Cough, Dyspnea - Gastrointestinal Gastrointestinal: absent: Abdominal Pain, Change in Bowel Habits - Genitourinary Genitourinary: absent: Change in Urinary Stream, Difficulty Urinating - Musculoskeletal Musculoskeletal: absent: Back Pain, Numbness - Integumentary Integumentary: absent: Pruritus, Rash - Neurological Neurological: absent: Dizziness, Numbness - Endocrine Endocrine: absent: Excessive Sweating, Fatigue - Hematologic/Lymphatic Hematologic: absent: Easy Bleeding, Easy Bruising Past Patient History - Past Medical History & Family History Past Medical History?: Yes - Past Social History Smoking Status: Never Smoked Chewing Tobacco Use: No Alcohol: None Drugs: Denies - CARDIAC Hx Cardiac Disorders: Yes Hx Congestive Heart Failure: Yes Hx Hypercholesterolemia: Yes Hx Hypertension: Yes - PULMONARY Hx Respiratory Disorders: No - NEUROLOGICAL Hx Neurological Disorder: Yes Hx Syncope: Yes (JUNE 2016) - HEENT Hx HEENT Problems: Yes Hx Cataracts: Yes Hx Glaucoma: Yes - RENAL Hx Chronic Kidney Disease: Yes Date of Last Dialysis Treatment: 10/10/16 - ENDOCRINE/METABOLIC Hx Endocrine Disorders: No - HEMATOLOGICAL/ONCOLOGICAL Hx Blood Disorders: Yes Hx Blood Transfusions: Yes (2013) Hx Blood Transfusion Reaction: No - INTEGUMENTARY Hx Dermatological Problems: No - MUSCULOSKELETAL/RHEUMATOLOGICAL Hx Musculoskeletal Disorders: Yes Hx Falls: Yes Hx Fractures: Yes (2008) - GASTROINTESTINAL Hx Gastrointestinal Disorders: Yes Hx Gastroesophageal Reflux: Yes - GENITOURINARY/GYNECOLOGICAL Hx Genitourinary Disorders: No - PSYCHIATRIC Hx Psychophysiologic Disorder: No Hx Substance Use: No - SURGICAL HISTORY Hx Surgeries: Yes Hx Coronary Stent: Yes (CARDIAC CATH 09/12/2016) - ANESTHESIA Hx Anesthesia: Yes Hx Anesthesia Reactions: No Meds Allergies/Adverse Reactions: Allergies Allergy/AdvReac Type Severity Reaction Status Date / Time wheat Allergy RASH Verified 09/12/16 06:33 chocolate Allergy Intermediate RASH Uncoded 10/11/16 19:32 Tape Allergy RASH Uncoded 10/11/16 19:32 - Medications Medications: Current Medications Acetaminophen (Tylenol 650mg/20.3ml Solution Ud) 650 mg PO Q6 PRN PRN Reason: Pain, Mild (1-3) Physical Exam - Constitutional Appears: No Acute Distress - Head Exam Additional comments: Right facial swelling,right jem-orbital ecchymosis and swelling,right cheek abrasion - Eye Exam Eye Exam: EOMI, Periorbital swelling, PERRL. absent: Conjunctival injection Pupil Exam: NORMAL ACCOMODATION - ENT Exam ENT Exam: Mucous Membranes Moist, Normal External Ear Exam Additional comments: right lip swelling with cheek abrasion difficuly opening mouth - Neck Exam Neck exam: Negative for: Lymphadenopathy, Tenderness - Respiratory Exam Respiratory Exam: Clear to Auscultation Bilateral. absent: Accessory Muscle Use , Rales, Respiratory Distress - Cardiovascular Exam Cardiovascular Exam: REGULAR RHYTHM, Systolic Murmur. absent: JVD - GI/Abdominal Exam GI & Abdominal Exam: Normal Bowel Sounds, Soft. absent: Organomegaly, Tenderness - Extremities Exam Extremities exam: Positive for: pedal pulses present. Negative for: calf tenderness, pedal edema Additional comments: Right forearm in splint with bandage,able to move fingers - Back Exam Back exam: NORMAL INSPECTION. absent: CVA tenderness (L) - Neurological Exam Neurological exam: Alert, Oriented x3 - Skin Skin Exam: Warm Results - Vital Signs Recent Vital Signs: Last Vital Signs Temp 98.1 F 10/11/16 18:38 Pulse 74 10/11/16 18:38 Resp 16 10/11/16 18:38 BP 180/72 H 10/11/16 18:38 Pulse Ox 95 10/11/16 18:38 - Labs Result Diagrams: 10/11/16 15:23 10/11/16 15:23 - EKG Data EKG Interpreted by: Myself EKG shows normal: Sinus rhythm - Imaging and Cardiology CT scan - head Status: Image reviewed by me, Report reviewed by me Chest x-ray Additional comment: will order Assessment & Plan - Assessment and Plan (Free Text) Assessment: 1.Head trauma s/p Fall with bilateral subdural hematoma.-Patient was onplavix and aspirin s/p Cardiac stents.Meds on hold ER physician discussed case with Neurosurgeon.Patient Alert,oriented x [address] head 2.Fracture distal radius and ulnar bones -Splint applied analgesics Orthopedic evaluation 3.Anemia- f/u h/h 4.ESRD on HD,last HD yesterday.Nephrology evaluation 5.HTN/CAD with stents/CHF Continue meds
[2016-10-11] MEDS: Acetaminophen 650mg/20.3ml solution UD PO PRN (21:05)
[2016-10-12] MEDS: Acetaminophen 650mg/20.3ml solution UD PO PRN ×2 (04:12→10:46)
--- NOTE | 2016-10-12 06:55 | CP.PCM.CON ---
Past Patient History - Past Medical History & Family History Past Medical History?: Yes - Past Social History Smoking Status: Never Smoked Chewing Tobacco Use: No Alcohol: None Drugs: Denies - CARDIAC Hx Cardiac Disorders: Yes Hx Congestive Heart Failure: Yes Hx Hypercholesterolemia: Yes Hx Hypertension: Yes - PULMONARY Hx Respiratory Disorders: No - NEUROLOGICAL Hx Neurological Disorder: Yes Hx Syncope: Yes (JUNE 2016) - HEENT Hx HEENT Problems: Yes Hx Cataracts: Yes Hx Glaucoma: Yes - RENAL Hx Chronic Kidney Disease: Yes Date of Last Dialysis Treatment: 10/10/16 - ENDOCRINE/METABOLIC Hx Endocrine Disorders: No - HEMATOLOGICAL/ONCOLOGICAL Hx Blood Disorders: Yes Hx Blood Transfusions: Yes (2013) Hx Blood Transfusion Reaction: No - INTEGUMENTARY Hx Dermatological Problems: No - MUSCULOSKELETAL/RHEUMATOLOGICAL Hx Musculoskeletal Disorders: Yes Hx Falls: Yes Hx Fractures: Yes (2008) - GASTROINTESTINAL Hx Gastrointestinal Disorders: Yes Hx Gastroesophageal Reflux: Yes - GENITOURINARY/GYNECOLOGICAL Hx Genitourinary Disorders: No - PSYCHIATRIC Hx Psychophysiologic Disorder: No Hx Substance Use: No - SURGICAL HISTORY Hx Surgeries: Yes Hx Coronary Stent: Yes (CARDIAC CATH 09/12/2016) - ANESTHESIA Hx Anesthesia: Yes Hx Anesthesia Reactions: No Meds Allergies/Adverse Reactions: Allergies Allergy/AdvReac Type Severity Reaction Status Date / Time wheat Allergy RASH Verified 09/12/16 06:33 chocolate Allergy Intermediate RASH Uncoded 10/11/16 19:32 Tape Allergy RASH Uncoded 10/11/16 19:32 - Medications Medications: Current Medications Acetaminophen (Tylenol 650mg/20.3ml Solution Ud) 650 mg PO Q6 PRN PRN Reason: Pain, Mild (1-3) Last Admin: 10/12/16 04:12 Dose: 650 mg Amlodipine Besylate (Norvasc) 10 mg PO DAILY [facility] Carvedilol (Coreg) 25 mg PO BID [facility] Last Admin: 10/11/16 21:53 Dose: 25 mg Cinacalcet (Sensipar) 30 mg PO [facility] Last Admin: 10/11/16 21:53 Dose: 30 mg Famotidine (Pepcid) 20 mg PO DAILY [facility] Hydralazine HCl (Apresoline) 25 mg PO TID [facility] Last Admin: 10/11/16 21:53 Dose: 25 mg Lisinopril (Zestril) 20 mg PO DAILY [facility] Sevelamer Carbonate (Renvela) 800 mg PO TIDCC SADIE Vitamin B Complex/Vit C/Folic Acid (Nephro-Enedina) 1 tab PO 0800 SADIE Results - Vital Signs Recent Vital Signs: Last Vital Signs Temp 98.3 F 10/12/16 04:00 Pulse 64 10/12/16 06:40 Resp 17 10/12/16 06:40 BP 155/55 H 10/12/16 06:03 Pulse Ox 100 10/12/16 06:40 - Labs Result Diagrams: 10/11/16 15:23 10/11/16 15:23
[2016-10-12 06:59] LABS: BASO # 0.1 K/uL (0.0-0.2); BASO % 0.7 % (0.0-2.0); EOS # 0.1 K/uL (0.0-0.7); EOS % 1.3 % (0.0-4.0); LYMPH # 0.8 K/uL (1.0-4.3); LYMPH % 7.7 % (20.0-40.0); MEAN CELL VOLUME 92.1 fL (81.0-99.0); MEAN CORPUSCULAR HEMOGLOBIN 29.7 pg (27.0-31.0); MEAN CORPUSCULAR HGB CONC 32.2 g/dL (33.0-37.0); MEAN PLATELET VOLUME 7.7 fL (7.2-11.7); MONO # 0.8 K/uL (0.0-0.8); MONO % 7.3 % (0.0-10.0); NEUT # 9.1 K/uL (1.8-7.0); PLATELET COUNT 120 K/uL (130-400); RBC 3.04 Mil/uL (3.80-5.20); RED CELL DISTRIBUTION WIDTH 17.1 % (11.5-14.5)
[2016-10-12 07:10] LABS: ALBUMIN 3.1 g/dL (3.5-5.0)
[2016-10-12 07:13] LABS: ALB/GLOB RATIO 0.8 (1.0-2.1); CALCIUM 8.2 mg/dl (8.6-10.4)
[2016-10-12] MEDS: Multivitamin Vitamin B Complex (Nephro-Vite) Tab PO SCH (07:50)
--- NOTE | 2016-10-12 09:07 | CP.CCUPN ---
CCU Subjective - Physician Review Events Since Last Encounter (Free Text): 10/12/16 09:06 70-year-old female with history of CAD, status post a stent to, hypertension CHF , hyperlipidemia, ESRD on hemodialysis admitted with a right arm fracture, and a subarachnoid hemorrhage. Patient now is awake and responding. No focal deficit Noted. Patient has no seizure activities, no headache noted. Patient is having right arm splint. Patient is having left arm AV shunt. Currently awake and responding, not in any distress. CCU Objective - Vital Signs / Intake & Output Vital Signs (Last 4 hours): Vital Signs Pulse Resp BP Pulse Ox 10/12/16 07:20 64 12 100 10/12/16 07:10 64 11 L 100 10/12/16 07:03 63 10 L 167/66 H 100 10/12/16 07:00 63 12 100 10/12/16 06:50 64 16 100 10/12/16 06:40 64 17 100 10/12/16 06:30 61 12 100 10/12/16 06:20 64 17 100 10/12/16 06:10 63 17 100 10/12/16 06:03 62 14 155/55 H 100 10/12/16 06:00 64 19 100 10/12/16 05:50 63 15 100 10/12/16 05:40 64 12 100 10/12/16 05:30 68 11 L 100 10/12/16 05:20 66 14 100 10/12/16 05:10 65 10 L 100 Intake and Output (Last 8hrs): Intake & Output 10/11/16 10/12/16 10/12/16 22:59 06:59 14:59 Intake Total 240 480 Output Total 50 Balance 240 430 Intake: Oral 240 480 Output: Urine 50 Urine, Voided 50 Other: # Voids Urine, Voided 1 - Physical Exam Narrative Physical Exam (Free Text): 10/12/16 09:06 Vital signs reviewed No neck vein distention noted Chest good air entry bilaterally, no wheezing or rales noted CVS regular heart sound, no murmur noted Abdomen soft, nontender. Edema generalized BODY MASKER alert awake oriented 3, no functional neurological deficit - Medications Active Medications: Active Medications Generic Name Dose Route Start Last Admin Trade Name Freq PRN Reason Stop Dose Admin Acetaminophen 650 mg 10/11/16 20:32 10/12/16 04:12 Tylenol 650mg/20.3ml Solution Ud PO 650 mg Q6 PRN Administration Pain, Mild (1-3) Amlodipine Besylate 10 mg 10/12/16 10:00 Norvasc PO DAILY [facility] Carvedilol 25 mg 10/11/16 21:45 10/11/16 21:53 Coreg PO 25 mg BID SADIE Administration Cinacalcet 30 mg 10/11/16 22:00 10/11/16 21:53 Sensipar PO 30 mg HS SADIE Administration Famotidine 20 mg 10/12/16 10:00 Pepcid PO DAILY [facility]ADIE Hydralazine HCl 25 mg 10/11/16 22:00 10/11/16 21:53 Apresoline PO 25 mg TID SADIE Administration Lisinopril 20 mg 10/12/16 10:00 Zestril PO DAILY SADIE Sevelamer Carbonate 800 mg 10/12/16 08:00 10/12/16 07:50 Renvela PO 800 mg TIDCC SADIE Administration Vitamin B Complex/Vit C/Folic Acid 1 tab 10/12/16 08:00 10/12/16 07:50 Nephro-Enedina PO 1 tab 0800 SADIE Administration - Patient Studies Lab Studies: Lab Studies 10/12/16 10/12/16 Range/Units 06:46 06:46 WBC 11.0 H (4.8-10.8) K/uL RBC 3.04 L (3.80-5.20) Mil/uL Hgb 9.0 L (11.0-16.0) g/dL Hct 28.0 L (34.0-47.0) % MCV 92.1 (81.0-99.0) fL MCH 29.7 (27.0-31.0) pg MCHC 32.2 L (33.0-37.0) g/dL RDW 17.1 H (11.5-14.5) % Plt Count 120 L (130-400) K/uL MPV 7.7 (7.2-11.7) fL Neut % (Auto) 83.0 H (50.0-75.0) % Lymph % (Auto) 7.7 L (20.0-40.0) % [place] % (Auto) 7.3 (0.0-10.0) % Eos % (Auto) 1.3 (0.0-4.0) % Baso % (Auto) 0.7 (0.0-2.0) % Neut # 9.1 H (1.8-7.0) K/uL Lymph # 0.8 L (1.0-4.3) K/uL [place] # 0.8 (0.0-0.8) K/uL Eos # 0.1 (0.0-0.7) K/uL Baso # 0.1 (0.0-0.2) K/uL Sodium 139 (132-148) mmol/L Potassium 5.0 (3.6-5.2) mmol/L Chloride 96 L (98-107) mmol/L Carbon Dioxide 31 H (22-30) mmol/L Anion Gap 17 (10-20) BUN 38 H (7-17) mg/dL Creatinine 6.6 H (0.7-1.2) MG/DL Est GFR ( Amer) 8 Est GFR (Non-Af Amer) 6 Random Glucose 101 (65-105) mg/dL Calcium 8.2 L (8.6-10.4) mg/dl Phosphorus 5.2 H (2.5-4.5) mg/dL Magnesium 2.0 (1.6-2.3) mg/dL Total Bilirubin 0.5 (0.2-1.3) mg/dL AST 17 (14-36) U/L ALT 19 (9-52) U/L Alkaline Phosphatase 56 (38-126) U/L Total Protein 6.8 (6.3-8.3) g/dL Albumin 3.1 L (3.5-5.0) g/dL Globulin 3.7 (2.2-3.9) gm/dL Albumin/Globulin Ratio 0.8 L (1.0-2.1) Laboratory Results - last 24 hr 10/12/16 10/12/16 06:46 06:46 WBC 11.0 H RBC 3.04 L Hgb 9.0 L Hct 28.0 L MCV 92.1 MCH 29.7 MCHC 32.2 L RDW 17.1 H Plt Count 120 L MPV 7.7 Neut % (Auto) 83.0 H Lymph % (Auto) 7.7 L [place] % (Auto) 7.3 Eos % (Auto) 1.3 Baso % (Auto) 0.7 Neut # 9.1 H Lymph # 0.8 L [place] # 0.8 Eos # 0.1 Baso # 0.1 Sodium 139 Potassium 5.0 Chloride 96 L Carbon Dioxide 31 H Anion Gap 17 BUN 38 H Creatinine 6.6 H Est GFR ( Amer) 8 Est GFR (Non-Af Amer) 6 Random Glucose 101 Calcium 8.2 L Phosphorus 5.2 H Magnesium 2.0 Total Bilirubin 0.5 AST 17 ALT 19 Alkaline Phosphatase 56 Total Protein 6.8 Albumin 3.1 L Globulin 3.7 Albumin/Globulin Ratio 0.8 L EKG/Cardiology Studies: Cardiology / EKG Studies 10/11/16 18:30 EKG [ELECTROCARDIOGRAM] Stat Comment: Mode Of Transportation: STRETCHER Reason For Exam: ADMISSION Critical Care Progress Note - Nutrition Nutrition: Nutrition Category Date Time Status Soft [Dysphagia/Modified Consistency Diet] [DIET] Diets 10/12/16 Breakfast Active Assessment/Plan - Assessment and Plan (Free Text) Assessment: 70-year-old female with history of CAD, status post a stent to, hypertension CHF , hyperlipidemia, ESRD on hemodialysis admitted with a right arm fracture, and a subarachnoid hemorrhage. We'll closely neurologically monitor the patient. For possible dialysis. A wide antiplatelets and heparin
[2016-10-12 09:11] LABS: ANISOCYTOSIS SLIGHT; EOSINOPHIL 1 % (0-4); HYPOCHROMIC SLIGHT; LYMPHOCYTE 4 % (20-40); MONOCYTE 6 % (0-10); NEUTROPHIL 89 % (50-75); PLATELET ESTIMATE SLIGHTLY DECREASED (NORMAL); TOTAL CELLS COUNTED 100
--- NOTE | 2016-10-12 09:22 | CP.PCM.HP ---
History of Present Illness - History of Present Illness History of Present Illness: CC: Traumatic Fall HPI: Mrs Hernandez is a 70 yo female who had a traumatic fall yesterday around 12:30pm. She states that she was shopping in [place] when she tripped on an elevated platform on her right side. She landed forcefully on her right arm, face and head. She then walked over to her dialysis center, which was only 1 block away, where the staff there called an ambulance and brought her to [facility]. She denies focal deficits, seizures, headache. PMD: Dr. Aiden Hernández Storage Specialist: Dr. Pankaj Hernández Acquisition Marketing Coordinator: Dr Winn PMHx: CAD, ESRD, HTN, Cataract PSHx: 2 stent placements 09/2016, 1 stent placement 12/2015, 1 stent placement 2015 Medications: amlodipine 10mg po daily, aspirin 81mg daily, atorvastatin 40mg hs , carvedilol 25mg po bid, cinacalcet 30mg po hs, clopidogrel 75mg po daily, hydralazine 25mg po tid, lisinopril 20mg po daily, sevelamer 800mg po tid, vitamin b 1 tab po daily Allergies: wheat - shortness of breath; adhesive tape - skin rash (must use paper tape) Fam Hx: Father - pacemaker, CAD; Mother- HTN, DM, CT Social Hx: denies tobacco, alcohol, illicit drug use Present on Admission - Present on Admission Any Indicators Present on Admission: No Review of Systems - Constitutional Constitutional: absent: Chills, Fever, Night Sweats - EENT Eyes: absent: Blurred Vision Nose/Mouth/Throat: absent: Epistaxis, Nasal Congestion, Nasal Discharge - Cardiovascular Cardiovascular: absent: Chest Pain, Palpitations, Pedal Edema - Respiratory Respiratory: absent: Cough, Dyspnea, Wheezing - Gastrointestinal Gastrointestinal: absent: Abdominal Pain, Bloating, Diarrhea - Genitourinary Genitourinary: absent: Change in Urinary Stream, Dysuria, Flank Pain - Musculoskeletal Additional comments: right forearm fractures - Neurological Neurological: absent: Abnormal Speech, Dizziness, Syncope - Psychiatric Psychiatric: absent: Anxiety - Endocrine Endocrine: absent: Fatigue, Palpitations, Polyphagia - Hematologic/Lymphatic Hematologic: absent: Easy Bleeding, Easy Bruising Past Patient History - Past Medical History & Family History Past Medical History?: Yes - Past Social History Smoking Status: Never Smoked Chewing Tobacco Use: No Alcohol: None Drugs: Denies - CARDIAC Hx Cardiac Disorders: Yes Hx Congestive Heart Failure: Yes Hx Hypercholesterolemia: Yes Hx Hypertension: Yes - PULMONARY Hx Respiratory Disorders: No - NEUROLOGICAL Hx Neurological Disorder: Yes Hx Syncope: Yes (JUNE 2016) - HEENT Hx HEENT Problems: Yes Hx Cataracts: Yes Hx Glaucoma: Yes - RENAL Hx Chronic Kidney Disease: Yes Date of Last Dialysis Treatment: 10/10/16 - ENDOCRINE/METABOLIC Hx Endocrine Disorders: No - HEMATOLOGICAL/ONCOLOGICAL Hx Blood Disorders: Yes Hx Blood Transfusions: Yes (2013) Hx Blood Transfusion Reaction: No - INTEGUMENTARY Hx Dermatological Problems: No - MUSCULOSKELETAL/RHEUMATOLOGICAL Hx Musculoskeletal Disorders: Yes Hx Falls: Yes Hx Fractures: Yes (2008) - GASTROINTESTINAL Hx Gastrointestinal Disorders: Yes Hx Gastroesophageal Reflux: Yes - GENITOURINARY/GYNECOLOGICAL Hx Genitourinary Disorders: No - PSYCHIATRIC Hx Psychophysiologic Disorder: No Hx Substance Use: No - SURGICAL HISTORY Hx Surgeries: Yes Hx Coronary Stent: Yes (CARDIAC CATH 09/12/2016) - ANESTHESIA Hx Anesthesia: Yes Hx Anesthesia Reactions: No Meds Allergies/Adverse Reactions: Allergies Allergy/AdvReac Type Severity Reaction Status Date / Time wheat Allergy RASH Verified 09/12/16 06:33 chocolate Allergy Intermediate RASH Uncoded 10/11/16 19:32 Tape Allergy RASH Uncoded 10/11/16 19:32 Physical Exam - Constitutional Appears: Well, Non-toxic, No Acute Distress - Head Exam Additional comments: right sided facial trauma - Eye Exam Additional comments: cataract right eye Subconjunctival hemorrhage of right eye - ENT Exam ENT Exam: absent: Mucous Membranes Moist - Neck Exam Neck exam: Negative for: Normal Inspection - Respiratory Exam Respiratory Exam: Clear to Auscultation Bilateral, NORMAL BREATHING PATTERN. absent: Wheezes - Cardiovascular Exam Cardiovascular Exam: REGULAR RHYTHM, +S1, +S2 - GI/Abdominal Exam GI & Abdominal Exam: Normal Bowel Sounds, Soft. absent: Distended - Rectal Exam Rectal Exam: Deferred - Extremities Exam Additional comments: Patient has a right arm splint. - Neurological Exam Neurological exam: Alert, Oriented x3 - Psychiatric Exam Psychiatric exam: Normal Affect, Normal Mood - Skin Skin Exam: Abrasion, Normal Color Results - Vital Signs Recent Vital Signs: Last Vital Signs Temp 98.3 F 10/12/16 04:00 Pulse 64 10/12/16 07:20 Resp 12 10/12/16 07:20 BP 167/66 H 10/12/16 07:03 Pulse Ox 100 10/12/16 07:20 - Labs Result Diagrams: 10/12/16 06:46 10/12/16 06:46 Labs: Laboratory Results - last 24 hr 10/12/16 10/12/16 06:46 06:46 WBC 11.0 H RBC 3.04 L Hgb 9.0 L Hct 28.0 L MCV 92.1 MCH 29.7 MCHC 32.2 L RDW 17.1 H Plt Count 120 L MPV 7.7 Neut % (Auto) 83.0 H Lymph % (Auto) 7.7 L [place] % (Auto) 7.3 Eos % (Auto) 1.3 Baso % (Auto) 0.7 Neut # 9.1 H Lymph # 0.8 L [place] # 0.8 Eos # 0.1 Baso # 0.1 Neutrophils % (Manual) 89 H Lymphocytes % (Manual) 4 L Monocytes % (Manual) 6 Eosinophils % (Manual) 1 Platelet Estimate Slightly decreased L Hypochromasia (manual) Slight Anisocytosis (manual) Slight Sodium 139 Potassium 5.0 Chloride 96 L Carbon Dioxide 31 H Anion Gap 17 BUN 38 H Creatinine 6.6 H Est GFR ( Amer) 8 Est GFR (Non-Af Amer) 6 Random Glucose 101 Calcium 8.2 L Phosphorus 5.2 H Magnesium 2.0 Total Bilirubin 0.5 AST 17 ALT 19 Alkaline Phosphatase 56 Total Protein 6.8 Albumin 3.1 L Globulin 3.7 Albumin/Globulin Ratio 0.8 L Assessment & Plan (1) Trauma Assessment and Plan: 1.Head trauma s/p Fall with bilateral subdural hematoma Patient was onplavix and aspirin s/p Cardiac stents, meds on hold ER physician discussed case with Neurosurgeon Patient aao x 3, no LOC Neurology evaluation Rpt CT head 2.Fracture distal radius and ulnar bones -Splint applied analgesics Orthopedic evaluation - To OR for repeat clsoed redcution/possible ORIF when pt is medically stable Status: Acute (2) Coronary artery disease Assessment and Plan: 1.HTN/CAD with stents/CHF, continue meds Status: Acute (3) HTN (hypertension) Assessment and Plan: con't coreg, amlodopine, lisinopril, hydralazine Status: Acute (4) Cataract Status: Acute (5) ESRD (end stage renal disease) on dialysis Assessment and Plan: 1. ESRD on HD, last HD yesterday con't sevelamer Nephrology evaluation, f/u Status: Acute (6) Anemia Assessment and Plan: 1. Hgb 9.8 monitor h/h Status: Acute (7) Prophylactic measure Assessment and Plan: Hold heparin pepcid 20mg daily no scd's at this time soft renal diet due to facial trauma Status: Acute
--- NOTE | 2016-10-12 09:42 | CT ---
PROCEDURE: CT HEAD WITHOUT CONTRAST. HISTORY: [facility] COMPARISON: None available. TECHNIQUE: Axial computed tomography images were obtained through the head/brain without intravenous contrast. Radiation dose: Total exam DLP = 936.55 mGy-cm. This CT exam was performed using one or more of the following dose reduction techniques: Automated exposure control, adjustment of the mA and/or kV according to patient size, and/or use of iterative reconstruction technique. FINDINGS: HEMORRHAGE: There has been no significant interval change in known bilateral parietal convexity subarachnoid hemorrhage and subarachnoid hemorrhage in the left temporal lobe. BRAIN: There are mild chronic microangiopathic changes. There is no mass or mass effect. There is no territorial infarction. There are coarse atherosclerotic calcifications in the cavernous carotid arteries. VENTRICLES: There is mild age-related global parenchymal volume loss and proportionate enlargement of the ventricles and cortical sulci. . CALVARIUM: The skull base and calvarium are normal. There is hyperostosis frontalis interna. PARANASAL SINUSES: Predominantly clear. MASTOID AIR CELLS: Predominantly clear. OTHER FINDINGS: None. IMPRESSION: Bilateral parietal convexity and left temporal subarachnoid hemorrhage without significant interval change. Mild chronic microangiopathic changes and mild age-related global parenchymal volume loss.
--- NOTE | 2016-10-12 10:20 | RAD ---
HISTORY: trauma COMPARISON: 09/10/2016. FINDINGS: There is stable position of a brachiocephalic stent. LUNGS: There is mild pulmonary venous congestion and interstitial edema. PLEURA: No significant pleural effusion identified, no pneumothorax apparent. CARDIOVASCULAR: The heart remains enlarged. Atherosclerotic aortic arch calcifications are present. OSSEOUS STRUCTURES: No significant abnormalities. VISUALIZED UPPER ABDOMEN: Normal. OTHER FINDINGS: None. IMPRESSION: No acute findings. Persistent cardiomegaly and mild pulmonary venous congestion. No focal consolidation.
[2016-10-12] MEDS ORDERED: Labetalol 25mg/5ml Syringe IV STA (20:46)
--- NOTE | 2016-10-12 21:39 | CP.PCM.CON ---
History of Present Illness - History of Present Illness History of Present Illness: Initial Nephrology Consultation: Assessment: Critical Hypertensive Chronic Kidney Disease (I12.0) End stage renal disease (N18.6) dependence on hemodialysis (Z99.2) (TTS) via AVF Anemia (D64.9), Hyperphosphatemia (E83.39), Secondary Hyperparathyroidism (E21.1 ), HTN (I12.0) Fall with intracranial/sub-arachnoid hemorrhage and Rt radial/ulnar fracture CAD s/p stent Plan: Will plan for HD today as ordered. Continue with Nephrovite 1 tab/day. PRBC as needed for anemia. On DARNELL as Mircera 50 mcg q 2 weeks, last Hb 9 Continue with phos binders home dose, last phos level 5.2 She gets senispar 30 mg/day and hectorol 3 mcg with dialysis. Last PTH level 150 BP control with meds as ordered. Patient on RAAS ivan. will increase dose of ACEI and hydralazine. if BP remains elevated consider minoxidil 2.5 mg BID or IV meds such as nicardipine drip. Glycemic control, Dialysis consistent diet Further work up/management as per primary team Dose meds/antibiotics (if needed) for ESRD status. Avoid fleets enema/magnesium based laxatives. management of SAH and right wrist fracture as per neurosurgery, ortho d/w family bedside Thanks for allowing me to participate in care of your patient. Will follow patient with you. Please call if any Qs Dr Kyle Sloan Office: [phone] Chief Complaint; fall HPI: Pt is a 70 y/o F with hx of ESRD on hemodialysis (TTS) via AVF, last dialysis thur, chronic anemia, hyperphosphatemia, secondary hyperparathyroidism , hypertension, CAD s/p stents presented with complaints of fall while she tripped which led to fracture Rt wrist and head injury. she is in ICU currently Denies chest pain, palpitation, shortness of breath, leg swelling c/o rt facial and Rt hand pain ROS: Constitutional Symptoms: Denies fever. No chills. No Recent Weight Changes Eyes: denies change in vision, denies watery eyes, denies double vision Ears/Nose/Mouth/Throat: Denies Abnormal Taste. No Bad breath or Bad Taste. Cardiovascular: No chest pain. There is no shortness of breath. No palpitations. Pulmonary: No shortness of breath or cough. Gastrointestinal: denies abdominal pain No nausea. No vomiting. Denies change in bowel habits. Denies Bleeding Genitourinary: makes urine. No associated pain or blood. Neurological: c/o mild headaches. No dizziness. had loss of balance. Denies weakness, denies tingling/numbness Dermatological: No Rash or Bruising or ulcers. Psychiatric: Denies Anxiety. No depression. Denies hallucinations. Rheumatological: c/o Rt forearm and wrist pain with swelling Endocrine: Denies over tiredness. Denies Fatigue and denies Heat/Cold Intolerance. All other negative. Physical Examination: General Appearance: Comfortable, in no acute respiratory distress, co-operative . Vitals reviewed and noted as below Head; normocephalic. Rt facial side swollen and bruised/echymotic ENT: no ulcers no thrush. Tongue is midline. Oropharynx: no rash or ulcers. EYES: Pupils are equal, round and reactive to light accommodation. Eye muscles and extraocular movement intact. Sclera is anicteric. Neck; supple no lymphadenopathy, no thyromegaly or bruit Lungs: Normal respiratory rate/effort. Breath sounds bilateral equal and clear Heart: Normal rate. s1s2 normal. No rub or gallop. Extremities: no edema. No varicose veins Neurological: Patient is alert, awake and oriented to person, place and time. No focal deficit. Strength bilateral appropriate and equal Skin: Warm and dry. Normal turgor. No rash. Palpitation: Normal elasticity for age Abdomen: Abdomen is soft. Bowel sounds +. There is no abdominal tenderness, no guarding/rigidity or organomegaly Psych: normal insight and normal affect/mood MSK: Rt arm in splint otherwise Digits and nails normal, no deformity : kidney or bladder not palpable Access: AVF Labs/imaging reviewed. Past medical history, past surgical history, family history, social history, allergy reviewed and noted as below Family Hx: no hx of CKD. Non contributory Past Patient History - Past Medical History & Family History Past Medical History?: Yes - Past Social History Smoking Status: Never Smoked Chewing Tobacco Use: No Alcohol: None Drugs: Denies - CARDIAC Hx Cardiac Disorders: Yes Hx Congestive Heart Failure: Yes Hx Hypercholesterolemia: Yes Hx Hypertension: Yes - PULMONARY Hx Respiratory Disorders: No - NEUROLOGICAL Hx Neurological Disorder: Yes Hx Syncope: Yes (JUNE 2016) - HEENT Hx HEENT Problems: Yes Hx Cataracts: Yes Hx Glaucoma: Yes - RENAL Hx Chronic Kidney Disease: Yes Date of Last Dialysis Treatment: 10/10/16 - ENDOCRINE/METABOLIC Hx Endocrine Disorders: No - HEMATOLOGICAL/ONCOLOGICAL Hx Blood Disorders: Yes Hx Blood Transfusions: Yes (2013) Hx Blood Transfusion Reaction: No - INTEGUMENTARY Hx Dermatological Problems: No - MUSCULOSKELETAL/RHEUMATOLOGICAL Hx Musculoskeletal Disorders: Yes Hx Falls: Yes Hx Fractures: Yes (2008) - GASTROINTESTINAL Hx Gastrointestinal Disorders: Yes Hx Gastroesophageal Reflux: Yes - GENITOURINARY/GYNECOLOGICAL Hx Genitourinary Disorders: No - PSYCHIATRIC Hx Psychophysiologic Disorder: No Hx Substance Use: No - SURGICAL HISTORY Hx Surgeries: Yes Hx Coronary Stent: Yes (CARDIAC CATH 09/12/2016) - ANESTHESIA Hx Anesthesia: Yes Hx Anesthesia Reactions: No Meds Allergies/Adverse Reactions: Allergies Allergy/AdvReac Type Severity Reaction Status Date / Time wheat Allergy RASH Verified 09/12/16 06:33 chocolate Allergy Intermediate RASH Uncoded 10/11/16 19:32 Tape Allergy RASH Uncoded 10/11/16 19:32 - Medications Medications: Current Medications Acetaminophen (Tylenol 650mg/20.3ml Solution Ud) 650 mg PO Q6 PRN PRN Reason: Pain, Mild (1-3) Last Admin: 10/12/16 10:46 Dose: 650 mg Amlodipine Besylate (Norvasc) 10 mg PO DAILY [facility] Last Admin: 10/12/16 09:34 Dose: 10 mg Carvedilol (Coreg) 25 mg PO BID [facility] Last Admin: 10/12/16 20:05 Dose: 25 mg Cinacalcet (Sensipar) 30 mg PO HS [facility] Last Admin: 10/11/16 21:53 Dose: 30 mg Famotidine (Pepcid) 20 mg PO DAILY [facility] Last Admin: 10/12/16 09:34 Dose: 20 mg Hydralazine HCl (Apresoline) 50 mg PO Q8 [facility] Lisinopril (Zestril) 20 mg PO BID [facility] Sevelamer Carbonate (Renvela) 800 mg PO TIDCC [facility] Last Admin: 10/12/16 11:57 Dose: 800 mg Vitamin B Complex/Vit C/Folic Acid (Nephro-Enedina) 1 tab PO 0800 [facility] Last Admin: 10/12/16 07:50 Dose: 1 tab Results - Vital Signs Recent Vital Signs: Last Vital Signs Temp 98.1 F 10/12/16 08:00 Pulse 76 10/12/16 20:07 Resp 20 10/12/16 20:07 BP 206/76 H 10/12/16 20:07 Pulse Ox 99 10/12/16 20:07 - Labs Result Diagrams: 10/12/16 06:46 10/12/16 06:46 Labs: Laboratory Results - last 24 hr 10/12/16 10/12/16 06:46 06:46 WBC 11.0 H RBC 3.04 L Hgb 9.0 L Hct 28.0 L MCV 92.1 MCH 29.7 MCHC 32.2 L RDW 17.1 H Plt Count 120 L MPV 7.7 Neut % (Auto) 83.0 H Lymph % (Auto) 7.7 L [place] % (Auto) 7.3 Eos % (Auto) 1.3 Baso % (Auto) 0.7 Neut # 9.1 H Lymph # 0.8 L [place] # 0.8 Eos # 0.1 Baso # 0.1 Neutrophils % (Manual) 89 H Lymphocytes % (Manual) 4 L Monocytes % (Manual) 6 Eosinophils % (Manual) 1 Platelet Estimate Slightly decreased L Hypochromasia (manual) Slight Anisocytosis (manual) Slight Sodium 139 Potassium 5.0 Chloride 96 L Carbon Dioxide 31 H Anion Gap 17 BUN 38 H Creatinine 6.6 H Est GFR ( Amer) 8 Est GFR (Non-Af Amer) 6 Random Glucose 101 Calcium 8.2 L Phosphorus 5.2 H Magnesium 2.0 Total Bilirubin 0.5 AST 17 ALT 19 Alkaline Phosphatase 56 Total Protein 6.8 Albumin 3.1 L Globulin 3.7 Albumin/Globulin Ratio 0.8 L
--- NOTE | 2016-10-13 03:13 | CP.PCM.PN ---
<Ger Sue - Last Filed: 10/13/16 15:26> Subjective - Date & Time of Evaluation Date of Evaluation: 10/13/16 Time of Evaluation: 07:10 - Subjective Subjective: PGY-[address] Moya's Service: Patient was examined at bedside. Patient was not in acute distress. Patient was pleasant and says she is doing well considering the circumstances. She had her dialysis treatment yesterday. She denies chest pain, shortness of breath, abdominal pain, bleeding, headache, palpitations, vomiting, diarrhea, fever. Objective - Vital Signs/Intake and Output Vital Signs (last 24 hours): Temp Pulse Resp BP Pulse Ox 98.1 F 70 14 175/65 H 99 10/12/16 08:00 10/13/16 01:02 10/13/16 01:02 10/13/16 01:02 10/13/16 01:02 Intake and Output: 10/12/16 10/13/16 18:59 06:59 Intake Total 540 240 Balance 540 240 - Medications Medications: Current Medications Acetaminophen (Tylenol 650mg/20.3ml Solution Ud) 650 mg PO Q6 PRN PRN Reason: Pain, Mild (1-3) Last Admin: 10/12/16 10:46 Dose: 650 mg Amlodipine Besylate (Norvasc) 10 mg PO DAILY [facility] Last Admin: 10/12/16 09:34 Dose: 10 mg Carvedilol (Coreg) 25 mg PO BID [facility] Last Admin: 10/12/16 20:05 Dose: 25 mg Cinacalcet (Sensipar) 30 mg PO HS [facility] Last Admin: 10/12/16 22:11 Dose: 30 mg Famotidine (Pepcid) 20 mg PO DAILY [facility] Last Admin: 10/12/16 09:34 Dose: 20 mg Hydralazine HCl (Apresoline) 50 mg PO Q8 [facility] Last Admin: 10/12/16 22:10 Dose: 50 mg Lisinopril (Zestril) 20 mg PO BID [facility] Last Admin: 10/12/16 22:11 Dose: 20 mg Sevelamer Carbonate (Renvela) 800 mg PO TIDCC [facility] Last Admin: 10/12/16 11:57 Dose: 800 mg Vitamin B Complex/Vit C/Folic Acid (Nephro-Enedina) 1 tab PO 0800 [facility] Last Admin: 10/12/16 07:50 Dose: 1 tab - Labs Labs: 10/12/16 06:46 10/12/16 06:46 PT 13.4 SECONDS (9.7-12.2) H 10/11/16 15:23 INR 1.2 10/11/16 15:23 APTT 34 SECONDS (21-34) 10/11/16 15:23 - Constitutional Appears: Non-toxic, No Acute Distress - Head Exam Head Exam: NORMAL INSPECTION - Eye Exam Additional comments: subconjunctival hemorrhage or right eye - ENT Exam ENT Exam: Mucous Membranes Moist - Neck Exam Neck Exam: Tenderness - Respiratory Exam Respiratory Exam: Clear to Ausculation Bilateral, NORMAL BREATHING PATTERN - Cardiovascular Exam Cardiovascular Exam: REGULAR RHYTHM - GI/Abdominal Exam GI & Abdominal Exam: Soft, Normal Bowel Sounds - Rectal Exam Rectal Exam: Deferred - Extremities Exam Additional comments: right arm in splint right leg tender but without fracture - Neurological Exam Neurological Exam: Alert, Awake, Oriented x3 - Psychiatric Exam Psychiatric exam: Normal Affect, Normal Mood - Skin Skin Exam: Dry, Intact, Normal Color, Warm Assessment and Plan (1) Trauma Status: Acute (2) Coronary artery disease Status: Acute (3) HTN (hypertension) Status: Acute (4) Cataract Status: Acute (5) ESRD (end stage renal disease) on dialysis Status: Acute (6) Anemia Status: Acute (7) Prophylactic measure Status: Acute - Assessment and Plan (Free Text) Assessment: (1) Trauma Assessment and Plan: 1.Head trauma s/p Fall with bilateral subdural hematoma Patient was on plavix and aspirin s/p Cardiac stents, meds on hold ER physician discussed case with Neurosurgeon Patient aao x 3, no LOC Neurology evaluation Rpt CT head 2.Fracture distal radius and ulnar bones -Splint applied analgesics Orthopedic evaluation - To OR for repeat clsoed redcution/possible ORIF when pt is medically stable Status: Acute (2) Coronary artery disease Assessment and Plan: 1.HTN/CAD with stents/CHF, continue meds Status: Acute (3) HTN (hypertension) Assessment and Plan: con't coreg, amlodopine, lisinopril, hydralazine Status: Acute (4) Cataract Status: Acute (5) ESRD (end stage renal disease) on dialysis Assessment and Plan: 1. ESRD on HD, last HD yesterday con't sevelamer Nephrology evaluation, f/u Status: Acute (6) Anemia Assessment and Plan: 1. Hgb 9.8 monitor h/h Status: Acute (7) Prophylactic measure Assessment and Plan: Hold heparin pepcid 20mg daily no scd's at this time soft renal diet due to facial trauma Status: Acute <Kali Moya Jr. - Last Filed: 10/22/16 10:12> Objective - Vital Signs/Intake and Output Vital Signs (last 24 hours): Temp Pulse Resp BP Pulse Ox 98.3 F 56 L 20 145/69 95 10/18/16 17:47 10/18/16 17:47 10/18/16 17:47 10/18/16 18:14 10/18/16 17:47 - Labs Labs: 10/18/16 08:32 10/18/16 08:32 PT 13.4 SECONDS (9.7-12.2) H 10/11/16 15:23 INR 1.2 10/11/16 15:23 APTT 34 SECONDS (21-34) 10/11/16 15:23 Attending/Attestation - Attestation I have personally seen and examined this patient.: Yes I have fully participated in the care of the patient.: Yes I have reviewed all pertinent clinical information, including history, physical exam and plan: Yes Notes (Text): 10/22/16 10:12 Agree with resident note and findings
[2016-10-13 06:32] LABS: BASO # 0.1 K/uL (0.0-0.2); BASO % 0.6 % (0.0-2.0); EOS # 0.3 K/uL (0.0-0.7); EOS % 3.8 % (0.0-4.0); HEMOGLOBIN 6.9 g/dL (11.0-16.0); LYMPH # 0.6 K/uL (1.0-4.3); LYMPH % 6.8 % (20.0-40.0); MEAN CELL VOLUME 91.3 fL (81.0-99.0); MEAN CORPUSCULAR HEMOGLOBIN 29.4 pg (27.0-31.0); MEAN CORPUSCULAR HGB CONC 32.2 g/dL (33.0-37.0); MEAN PLATELET VOLUME 7.7 fL (7.2-11.7); MONO # 0.6 K/uL (0.0-0.8); MONO % 7.8 % (0.0-10.0); NEUT # 6.7 K/uL (1.8-7.0); NRBC % 0.1 % (0.0-2.0); PLATELET COUNT 102 K/uL (130-400); RBC 2.34 Mil/uL (3.80-5.20); RED CELL DISTRIBUTION WIDTH 16.7 % (11.5-14.5); WHITE BLOOD COUNT 8.3 K/uL (4.8-10.8)
[2016-10-13] MEDS: Acetaminophen 650mg/20.3ml solution UD PO PRN ×2 (06:58→22:20)
[2016-10-13 08:32] LABS: ALB/GLOB RATIO 0.8 (1.0-2.1)
[2016-10-13 08:33] LABS: CALCIUM 7.1 mg/dl (8.6-10.4); MAGNESIUM 1.8 mg/dL (1.6-2.3)
[2016-10-13] MEDS: Multivitamin Vitamin B Complex (Nephro-Vite) Tab PO SCH (08:50)
--- NOTE | 2016-10-13 09:15 | CP.CCUPN ---
CCU Subjective - Physician Review Events Since Last Encounter (Free Text): 10/13/16 09:15 80-year-old female with history of CAD, stent, hypertension, CHF, hyperlipidemia , end-stage renal disease on dialysis. Right forearm fracture. Subcoracoid hemorrhage. Traumatic most likely On examination: Not in any distress. Chest good air entry bilaterally regular heart sound nontender abdomen. Patient received a hemolysis yesterday Patient is currently off antiplatelets, and heparin. Low hemoglobin level noted now. We will repeat the CBC again Assessment and a condition: 70-year-old female with history of CAD, status post stent, hypertension, CHF, hyperlipidemia, end-stage renal disease on dialysis in the admitted to the ICU with a subarachnoid hemorrhage, right forearm fracture, traumatic in origin. Neurology evaluation. Neuro watch. Repeat CBC. The patient is stable can be transferred to floor CCU Objective - Vital Signs / Intake & Output Vital Signs (Last 4 hours): Vital Signs Pulse Resp BP Pulse Ox 10/13/16 07:32 67 19 171/52 H 93 L 10/13/16 07:29 68 19 166/53 H 95 10/13/16 07:17 66 19 172/51 H 93 L 10/13/16 07:03 71 16 177/75 H 95 10/13/16 07:02 70 177/74 H 93 L 10/13/16 07:00 67 18 93 L 10/13/16 06:47 69 14 161/45 H 93 L 10/13/16 06:32 70 15 160/46 H 93 L 10/13/16 06:17 65 13 174/66 H 91 L 10/13/16 06:02 65 15 180/63 H 90 L 10/13/16 06:00 65 16 91 L 10/13/16 05:47 68 17 171/63 H 92 L 10/13/16 05:32 67 17 167/64 H 93 L 10/13/16 05:17 69 18 159/51 H 98 Intake and Output (Last 8hrs): Intake & Output 10/12/16 10/13/16 10/13/16 22:59 06:59 14:59 Intake Total 480 480 Output Total 100 150 Balance 480 380 -150 Intake: Oral 480 480 Output: Urine 100 150 Urine, Voided 100 150 Other: # Voids Urine, Voided 1 1 - Medications Active Medications: Active Medications Generic Name Dose Route Start Last Admin Trade Name Freq PRN Reason Stop Dose Admin Acetaminophen 650 mg 10/11/16 20:32 10/13/16 06:58 Tylenol 650mg/20.3ml Solution Ud PO 650 mg Q6 PRN Administration Pain, Mild (1-3) Amlodipine Besylate 10 mg 10/12/16 10:00 10/12/16 09:34 Norvasc PO 10 mg DAILY [facility] Administration Carvedilol 25 mg 10/11/16 21:45 10/12/16 20:05 Coreg PO 25 mg BID [facility] Administration Cinacalcet 30 mg 10/11/16 22:00 10/12/16 22:11 Sensipar PO 30 mg HS [facility] Administration Famotidine 20 mg 10/12/16 10:00 10/12/16 09:34 Pepcid PO 20 mg DAILY [facility] Administration Hydralazine HCl 50 mg 10/12/16 21:30 10/13/16 06:55 Apresoline PO 50 mg Q8 [facility] Administration Lisinopril 20 mg 10/12/16 21:30 10/12/16 22:11 Zestril PO 20 mg BID [facility] Administration Sevelamer Carbonate 800 mg 10/12/16 08:00 10/13/16 08:30 Renvela PO 800 mg TIDCC [facility] Administration Vitamin B Complex/Vit C/Folic Acid 1 tab 10/12/16 08:00 10/13/16 08:50 Nephro-Enedina PO 1 tab 0800 [facility] Administration - Patient Studies Lab Studies: Lab Studies 10/13/16 10/13/16 Range/Units 08:08 06:15 WBC 8.3 (4.8-10.8) K/uL RBC 2.34 L (3.80-5.20) Mil/uL Hgb 6.9 L D (11.0-16.0) g/dL Hct 21.4 L (34.0-47.0) % MCV 91.3 (81.0-99.0) fL MCH 29.4 (27.0-31.0) pg MCHC 32.2 L (33.0-37.0) g/dL RDW 16.7 H (11.5-14.5) % Plt Count 102 L (130-400) K/uL MPV 7.7 (7.2-11.7) fL Neut % (Auto) 81.0 H (50.0-75.0) % Lymph % (Auto) 6.8 L (20.0-40.0) % [place] % (Auto) 7.8 (0.0-10.0) % Eos % (Auto) 3.8 (0.0-4.0) % Baso % (Auto) 0.6 (0.0-2.0) % Neut # 6.7 (1.8-7.0) K/uL Lymph # 0.6 L (1.0-4.3) K/uL [place] # 0.6 (0.0-0.8) K/uL Eos # 0.3 (0.0-0.7) K/uL Baso # 0.1 (0.0-0.2) K/uL Sodium 136 (132-148) mmol/L Potassium 5.1 (3.6-5.2) mmol/L Chloride 102 (98-107) mmol/L Carbon Dioxide 26 (22-30) mmol/L Anion Gap 13 (10-20) BUN 21 H (7-17) mg/dL Creatinine 3.5 H (0.7-1.2) MG/DL Est GFR ( Amer) 16 Est GFR (Non-Af Amer) 13 Random Glucose 78 (65-105) mg/dL Calcium 7.1 L (8.6-10.4) mg/dl Phosphorus 3.8 (2.5-4.5) mg/dL Magnesium 1.8 (1.6-2.3) mg/dL Total Bilirubin 1.3 (0.2-1.3) mg/dL AST 48 H D (14-36) U/L ALT 12 (9-52) U/L Alkaline Phosphatase 36 L D (38-126) U/L Total Protein 6.6 (6.3-8.3) g/dL Albumin 3.0 L (3.5-5.0) g/dL Globulin 3.6 (2.2-3.9) gm/dL Albumin/Globulin Ratio 0.8 L (1.0-2.1) Laboratory Results - last 24 hr 10/13/16 10/13/16 06:15 08:08 WBC 8.3 RBC 2.34 L Hgb 6.9 L D Hct 21.4 L MCV 91.3 MCH 29.4 MCHC 32.2 L RDW 16.7 H Plt Count 102 L MPV 7.7 Neut % (Auto) 81.0 H Lymph % (Auto) 6.8 L [place] % (Auto) 7.8 Eos % (Auto) 3.8 Baso % (Auto) 0.6 Neut # 6.7 Lymph # 0.6 L [place] # 0.6 Eos # 0.3 Baso # 0.1 Sodium 136 Potassium 5.1 Chloride 102 Carbon Dioxide 26 Anion Gap 13 BUN 21 H Creatinine 3.5 H Est GFR ( Amer) 16 Est GFR (Non-Af Amer) 13 Random Glucose 78 Calcium 7.1 L Phosphorus 3.8 Magnesium 1.8 Total Bilirubin 1.3 AST 48 H D ALT 12 Alkaline Phosphatase 36 L D Total Protein 6.6 Albumin 3.0 L Globulin 3.6 Albumin/Globulin Ratio 0.8 L Critical Care Progress Note - Nutrition Nutrition: Nutrition Category Date Time Status Soft [Dysphagia/Modified Consistency Diet] [DIET] Diets 10/12/16 Breakfast Active
[2016-10-13 09:16] LABS: ANISOCYTOSIS SLIGHT; EOSINOPHIL 1 % (0-4); LYMPHOCYTE 6 % (20-40); MONOCYTE 2 % (0-10); NEUTROPHIL 90 % (50-75); PLATELET ESTIMATE SLIGHTLY DECREASED (NORMAL); TOTAL CELLS COUNTED 100
[2016-10-13 09:17] LABS: HYPOCHROMIC SLIGHT
--- NOTE | 2016-10-13 09:46 | CP.PCM.PN ---
Subjective - Date & Time of Evaluation Date of Evaluation: 10/13/16 Time of Evaluation: 09:40 - Subjective Subjective: pt comfortable at bedrest/less edema facies Objective - Vital Signs/Intake and Output Vital Signs (last 24 hours): Temp Pulse Resp BP Pulse Ox 98.8 F 67 19 171/52 H 93 L 10/13/16 04:00 10/13/16 07:32 10/13/16 07:32 10/13/16 07:32 10/13/16 07:32 Intake and Output: 10/13/16 10/13/16 06:59 18:59 Intake Total 960 Output Total 100 150 Balance 860 -150 - Medications Medications: Current Medications Acetaminophen (Tylenol 650mg/20.3ml Solution Ud) 650 mg PO Q6 PRN PRN Reason: Pain, Mild (1-3) Last Admin: 10/13/16 06:58 Dose: 650 mg Amlodipine Besylate (Norvasc) 10 mg PO DAILY [facility] Last Admin: 10/12/16 09:34 Dose: 10 mg Carvedilol (Coreg) 25 mg PO BID [facility] Last Admin: 10/12/16 20:05 Dose: 25 mg Cinacalcet (Sensipar) 30 mg PO HS [facility] Last Admin: 10/12/16 22:11 Dose: 30 mg Famotidine (Pepcid) 20 mg PO DAILY [facility] Last Admin: 10/12/16 09:34 Dose: 20 mg Hydralazine HCl (Apresoline) 100 mg PO Q8 [facility] Lisinopril (Zestril) 20 mg PO BID [facility] Last Admin: 10/12/16 22:11 Dose: 20 mg Sevelamer Carbonate (Renvela) 800 mg PO TIDCC [facility] Last Admin: 10/13/16 08:30 Dose: 800 mg Vitamin B Complex/Vit C/Folic Acid (Nephro-Enedina) 1 tab PO 0800 [facility] Last Admin: 10/13/16 08:50 Dose: 1 tab - Labs Labs: 10/13/16 06:15 10/13/16 08:08 PT 13.4 SECONDS (9.7-12.2) H 10/11/16 15:23 INR 1.2 10/11/16 15:23 APTT 34 SECONDS (21-34) 10/11/16 15:23 - Additional Findings Additional findings: Objective systemic- HEENT- evidence for cranial and maxillofacial trauma: please refer to appopriate consults Musculoskekltal stance/gaiut- defrred R upper ext splint intact pt not moving fingers- informed she will dvelop cintractures of pip joints if that continues Assessment and Plan - Assessment and Plan (Free Text) Assessment: A- multiple trauma Comminuted displaced distal radius fx; reduction in ER ;leaves radio-ulnar relationship compromised ( distal radius has settled) P orthopediclal stable- possible re reduction vs ORIF when pt is cleared medcially and from cranial/maxilloffacial point of view
[2016-10-13 10:04] LABS: BASO # 0.1 K/uL (0.0-0.2); EOS # 0.3 K/uL (0.0-0.7)
[2016-10-13 10:12] LABS: BASO % 0.8 % (0.0-2.0); EOS % 3.5 % (0.0-4.0); HEMOGLOBIN 9.2 g/dL (11.0-16.0); LYMPH # 0.7 K/uL (1.0-4.3); LYMPH % 7.1 % (20.0-40.0); MEAN CELL VOLUME 91.5 fL (81.0-99.0); MEAN CORPUSCULAR HEMOGLOBIN 29.4 pg (27.0-31.0); MEAN CORPUSCULAR HGB CONC 32.1 g/dL (33.0-37.0); MEAN PLATELET VOLUME 7.5 fL (7.2-11.7); MONO # 0.6 K/uL (0.0-0.8); MONO % 6.5 % (0.0-10.0); NEUT # 8.1 K/uL (1.8-7.0); NEUT % 82.1 % (50.0-75.0); RBC 3.12 Mil/uL (3.80-5.20); RED CELL DISTRIBUTION WIDTH 16.7 % (11.5-14.5); WHITE BLOOD COUNT 9.8 K/uL (4.8-10.8)
--- NOTE | 2016-10-13 13:13 | CT ---
PROCEDURE: CT HEAD WITHOUT CONTRAST. HISTORY: [facility] COMPARISON: 10/12/2016. TECHNIQUE: Axial computed tomography images were obtained through the head/brain without intravenous contrast. Radiation dose: Total exam DLP = 1200.68 MGy-cm. This CT exam was performed using one or more of the following dose reduction techniques: Automated exposure control, adjustment of the mA and/or kV according to patient size, and/or use of iterative reconstruction technique. FINDINGS: HEMORRHAGE: No intracranial hemorrhage. BRAIN: Since the prior examination, there has been no significant interval change in the known bilateral parietal convexity some adenoid hemorrhage, more on the left with extension into temporal subarachnoid space. There are mild chronic microangiopathic changes.There are coarse atherosclerotic calcifications in the cavernous carotid arteries. VENTRICLES: There is mild age-related global parenchymal volume loss and proportionate enlargement of the ventricles and cortical sulci. . CALVARIUM: There is hyperostosis frontalis interna. PARANASAL SINUSES: Predominantly clear. MASTOID AIR CELLS: Predominantly clear. OTHER FINDINGS: None IMPRESSION: No significant interval change in known bilateral parietal convexity subarachnoid hemorrhage, larger on the left with extension into the temporal lobe sulci. Mild chronic microangiopathic changes and mild age-related global parenchymal volume loss.
--- NOTE | 2016-10-13 14:19 | CP.PCM.PN ---
Subjective - Date & Time of Evaluation Date of Evaluation: 10/13/16 Time of Evaluation: 14:16 - Subjective Subjective: Follow up Nephrology Consultation: Assessment: Critical Hypertensive Chronic Kidney Disease (I12.0) End stage renal disease (N18.6) dependence on hemodialysis (Z99.2) (TTS) via AVF Anemia (D64.9), Hyperphosphatemia (E83.39), Secondary Hyperparathyroidism (E21.1 ), HTN (I12.0) Fall with intracranial/sub-arachnoid hemorrhage and Rt radial/ulnar fracture CAD s/p stent Plan: No acute need for dialysis today. Will plan for HD friday as ordered. Continue with Nephrovite 1 tab/day. PRBC as needed for anemia. On DARNELL as Mircera 50 mcg q 2 weeks, last Hb 9. will give epogen here Continue with phos binders home dose, last phos level 3.8 She gets senispar 30 mg/day and hectorol 3 mcg with dialysis. Last PTH level 150 BP control with meds as ordered. Patient on RAAS ivan. increased dose of ACEI and hydralazine to 100 mg q8. if BP remains elevated consider minoxidil 2.5 mg BID. BP 149/57 when seen Glycemic control, Dialysis consistent diet Further work up/management as per primary team Dose meds/antibiotics (if needed) for ESRD status. Avoid fleets enema/magnesium based laxatives. management of SAH and right wrist fracture as per neurosurgery, ortho Thanks for allowing me to participate in care of your patient. Will follow patient with you. Please call if any Qs Dr Kyle Sloan Office: [phone] HPI: Pt is a 70 y/o F with hx of ESRD on hemodialysis (TTS) via AVF, last dialysis thur, chronic anemia, hyperphosphatemia, secondary hyperparathyroidism , hypertension, CAD s/p stents presented with complaints of fall while she tripped which led to fracture Rt wrist and head injury. she is in ICU currently ROS; Denies chest pain, palpitation, shortness of breath, leg swelling c/o rt facial and Rt hand pain Physical Examination: General Appearance: Comfortable, in no acute respiratory distress, co-operative . Vitals reviewed and noted as below Head; normocephalic. Rt facial side swollen and bruised/echymotic Lungs: Normal respiratory rate/effort. Breath sounds bilateral equal and clear Heart: Normal rate. s1s2 normal. No rub or gallop. Extremities: no edema. No varicose veins Neurological: Patient is alert, awake and oriented to person, place and time. No focal deficit. Strength bilateral appropriate and equal Skin: Warm and dry. Normal turgor. No rash. Palpitation: Normal elasticity for age Abdomen: Abdomen is soft. Bowel sounds +. There is no abdominal tenderness, no guarding/rigidity or organomegaly Psych: normal insight and normal affect/mood MSK: Rt arm in splint otherwise Digits and nails normal, no deformity : kidney or bladder not palpable Access: AVF Labs/imaging reviewed. Past medical history, past surgical history, family history, social history, allergy reviewed and noted as below Family Hx: no hx of CKD. Non contributory Objective - Vital Signs/Intake and Output Vital Signs (last 24 hours): Temp Pulse Resp BP Pulse Ox 98.0 F 67 13 162/61 H 97 10/13/16 12:00 10/13/16 12:00 10/13/16 12:00 10/13/16 11:59 10/13/16 12:00 Intake and Output: 10/13/16 10/13/16 06:59 18:59 Intake Total 960 480 Output Total 100 150 Balance 860 330 - Medications Medications: Current Medications Acetaminophen (Tylenol 650mg/20.3ml Solution Ud) 650 mg PO Q6 PRN PRN Reason: Pain, Mild (1-3) Last Admin: 10/13/16 06:58 Dose: 650 mg Amlodipine Besylate (Norvasc) 10 mg PO DAILY [facility] Last Admin: 10/13/16 10:01 Dose: 10 mg Carvedilol (Coreg) 25 mg PO BID [facility] Last Admin: 10/13/16 10:04 Dose: 25 mg Cinacalcet (Sensipar) 30 mg PO HS [facility] Last Admin: 10/12/16 22:11 Dose: 30 mg Famotidine (Pepcid) 20 mg PO DAILY [facility] Last Admin: 10/13/16 10:01 Dose: 20 mg Hydralazine HCl (Apresoline) 100 mg PO Q8 [facility] Last Admin: 10/13/16 13:16 Dose: 100 mg Lisinopril (Zestril) 20 mg PO BID [facility] Last Admin: 10/13/16 10:04 Dose: 20 mg Sevelamer Carbonate (Renvela) 800 mg PO TIDCC [facility] Last Admin: 10/13/16 13:15 Dose: 800 mg Vitamin B Complex/Vit C/Folic Acid (Nephro-Enedina) 1 tab PO 0800 [facility] Last Admin: 10/13/16 08:50 Dose: 1 tab - Labs Labs: 10/13/16 09:59 10/13/16 08:08 PT 13.4 SECONDS (9.7-12.2) H 10/11/16 15:23 INR 1.2 10/11/16 15:23 APTT 34 SECONDS (21-34) 10/11/16 15:23
[2016-10-13 16:20] LABS: CALCIUM 7.9 mg/dl (8.6-10.4); MAGNESIUM 1.9 mg/dL (1.6-2.3)
--- NOTE | 2016-10-14 07:18 | CP.PCM.PN ---
Objective - Vital Signs/Intake and Output Vital Signs (last 24 hours): Temp Pulse Resp BP Pulse Ox 98.4 F 62 10 L 145/53 L 99 10/14/16 04:00 10/14/16 06:00 10/14/16 06:00 10/14/16 05:58 10/14/16 06:00 Intake and Output: 10/14/16 10/14/16 06:59 18:59 Intake Total 400 Output Total 0 Balance 400 - Medications Medications: Current Medications Acetaminophen (Tylenol 650mg/20.3ml Solution Ud) 650 mg PO Q6 PRN PRN Reason: Pain, Mild (1-3) Last Admin: 10/13/16 22:20 Dose: 650 mg Amlodipine Besylate (Norvasc) 10 mg PO DAILY [facility] Last Admin: 10/13/16 10:01 Dose: 10 mg Carvedilol (Coreg) 25 mg PO BID [facility] Last Admin: 10/13/16 17:41 Dose: 25 mg Cinacalcet (Sensipar) 30 mg PO HS [facility] Last Admin: 10/13/16 22:16 Dose: 30 mg Docusate Sodium (Colace) 100 mg PO TID [facility] Last Admin: 10/13/16 17:40 Dose: 100 mg Doxercalciferol (Hectorol) 3 mcg PO TTS [facility] Epoetin Anuj (Procrit) 4,000 unit IV TTS [facility] Famotidine (Pepcid) 20 mg PO DAILY [facility] Last Admin: 10/13/16 10:01 Dose: 20 mg Hydralazine HCl (Apresoline) 100 mg PO Q8 [facility] Last Admin: 10/14/16 06:06 Dose: 100 mg Lisinopril (Zestril) 20 mg PO BID [facility] Last Admin: 10/13/16 17:41 Dose: 20 mg Sevelamer Carbonate (Renvela) 800 mg PO TIDCC [facility] Last Admin: 10/13/16 17:41 Dose: 800 mg Vitamin B Complex/Vit C/Folic Acid (Nephro-Enedina) 1 tab PO 0800 [facility] Last Admin: 10/13/16 08:50 Dose: 1 tab - Labs Labs: 10/13/16 09:59 10/13/16 16:01 PT 13.4 SECONDS (9.7-12.2) H 10/11/16 15:23 INR 1.2 10/11/16 15:23 APTT 34 SECONDS (21-34) 10/11/16 15:23
--- NOTE | 2016-10-14 07:22 | CP.CCUPN ---
CCU Subjective - Physician Review Subjective (Free Text): 10/14/16 10:57 Patient seen and examined at bedside. Patient states she can move her arm and fingers better. Patient states it is difficult to eat because a few of her teeth on the right hand side did get damaged during her fall. Patient states she has not had a bowel movement since Friday. 10/14/16 11:04 CCU Objective - Vital Signs / Intake & Output Vital Signs (Last 4 hours): Vital Signs Temp Pulse Resp BP Pulse Ox 10/14/16 06:00 62 10 L 99 10/14/16 05:58 60 10 L 145/53 L 99 10/14/16 05:00 61 12 98 10/14/16 04:58 60 10 L 138/53 L 97 10/14/16 04:00 98.4 F 65 11 L 99 10/14/16 03:59 60 11 L 145/48 L 98 Intake and Output (Last 8hrs): Intake & Output 10/13/16 10/14/16 10/14/16 22:59 06:59 14:59 Intake Total 610 150 Output Total 0 0 Balance 610 150 Intake: Oral 610 150 Output: Urine 0 0 Urine, Voided 0 0 Stool 0 Other: # Bowel Movements 0 0 - Physical Exam Physical Exam Limitations: Positive for: Clinical Condition Head: Positive for: Abrasion (right side of the face has abrasions due to fall) Mouth: Positive for: Moist Mucous Membranes. Negative for: Normal Lips (right side of lips swollen ) Respiratory/Chest: Positive for: Clear to Auscultation, Good Air Exchange. Negative for: Wheezes, Rales Cardiovascular: Positive for: Regular Rate and Rhythm, Normal S1, S2 Abdomen: Positive for: Normal Bowel Sounds. Negative for: Tenderness, Distention Upper Extremity: Positive for: Tenderness (right arm is in a splint due to radial fracture). Negative for: Normal ROM (right extremity has limited range of motion due to radial fracture ) Neurological: Positive for: Speech Normal, Memory Normal Skin: Positive for: Warm, Dry, Abrasion (right side of the face abrsions are noted ) Psychiatric: Positive for: Alert, Oriented x 3, Normal Affect, Normal Mood - Medications Active Medications: Active Medications Generic Name Dose Route Start Last Admin Trade Name Freq PRN Reason Stop Dose Admin Acetaminophen 650 mg 10/11/16 20:32 10/13/16 22:20 Tylenol 650mg/20.3ml Solution Ud PO 650 mg Q6 PRN Administration Pain, Mild (1-3) Amlodipine Besylate 10 mg 10/12/16 10:00 10/13/16 10:01 Norvasc PO 10 mg DAILY [facility] Administration Carvedilol 25 mg 10/11/16 21:45 10/13/16 17:41 Coreg PO 25 mg BID [facility] Administration Cinacalcet 30 mg 10/11/16 22:00 10/13/16 22:16 Sensipar PO 30 mg HS [facility] Administration Docusate Sodium 100 mg 10/13/16 18:00 10/13/16 17:40 Colace PO 100 mg TID [facility] Administration Doxercalciferol 3 mcg 10/15/16 10:00 Hectorol PO TTS [facility] Epoetin Anuj 4,000 unit 10/15/16 10:00 Procrit IV TTS [facility] Famotidine 20 mg 10/12/16 10:00 10/13/16 10:01 Pepcid PO 20 mg DAILY [facility] Administration Hydralazine HCl 100 mg 10/13/16 10:00 10/14/16 06:06 Apresoline PO 100 mg Q8 [facility] Administration Lisinopril 20 mg 10/12/16 21:30 10/13/16 17:41 Zestril PO 20 mg BID [facility] Administration Sevelamer Carbonate 800 mg 10/12/16 08:00 10/13/16 17:41 Renvela PO 800 mg TIDCC [facility] Administration Vitamin B Complex/Vit C/Folic Acid 1 tab 10/12/16 08:00 10/13/16 08:50 Nephro-Enedina PO 1 tab 0800 [facility] Administration - Patient Studies Lab Studies: Microbiology Studies 10/11/16 19:13 MRSA Culture (Admit) - Final [facility] MRSA NOT DETECTED Lab Studies 10/13/16 10/13/16 10/13/16 Range/Units 16:01 09:59 08:08 WBC 9.8 (4.8-10.8) K/uL RBC 3.12 L (3.80-5.20) Mil/uL Hgb 9.2 L D (11.0-16.0) g/dL Hct 28.5 L (34.0-47.0) % MCV 91.5 (81.0-99.0) fL MCH 29.4 (27.0-31.0) pg MCHC 32.1 L (33.0-37.0) g/dL RDW 16.7 H (11.5-14.5) % Plt Count 125 L D (130-400) K/uL MPV 7.5 (7.2-11.7) fL Neut % (Auto) 82.1 H (50.0-75.0) % Lymph % (Auto) 7.1 L (20.0-40.0) % [place] % (Auto) 6.5 (0.0-10.0) % Eos % (Auto) 3.5 (0.0-4.0) % Baso % (Auto) 0.8 (0.0-2.0) % Neut # 8.1 H (1.8-7.0) K/uL Lymph # 0.7 L (1.0-4.3) K/uL [place] # 0.6 (0.0-0.8) K/uL Eos # 0.3 (0.0-0.7) K/uL Baso # 0.1 (0.0-0.2) K/uL Neutrophils % (Manual) (50-75) % Lymphocytes % (Manual) (20-40) % Monocytes % (Manual) (0-10) % Eosinophils % (Manual) (0-4) % Platelet Estimate (NORMAL) Hypochromasia (manual) Anisocytosis (manual) Sodium 135 136 (132-148) mmol/L Potassium 4.5 5.1 (3.6-5.2) mmol/L Chloride 93 L 102 (98-107) mmol/L Carbon Dioxide 29 26 (22-30) mmol/L Anion Gap 18 13 (10-20) BUN 24 H 21 H (7-17) mg/dL Creatinine 4.5 H 3.5 H (0.7-1.2) MG/DL Est GFR ( Amer) 12 16 Est GFR (Non-Af Amer) 10 13 Random Glucose 76 78 (65-105) mg/dL Calcium 7.9 L 7.1 L (8.6-10.4) mg/dl Phosphorus 3.9 3.8 (2.5-4.5) mg/dL Magnesium 1.9 1.8 (1.6-2.3) mg/dL Total Bilirubin 1.3 (0.2-1.3) mg/dL AST 48 H D (14-36) U/L ALT 12 (9-52) U/L Alkaline Phosphatase 36 L D (38-126) U/L Total Protein 6.6 (6.3-8.3) g/dL Albumin 3.0 L (3.5-5.0) g/dL Globulin 3.6 (2.2-3.9) gm/dL Albumin/Globulin Ratio 0.8 L (1.0-2.1) 10/13/16 Range/Units 06:15 WBC (4.8-10.8) K/uL RBC (3.80-5.20) Mil/uL Hgb (11.0-16.0) g/dL Hct (34.0-47.0) % MCV (81.0-99.0) fL MCH (27.0-31.0) pg MCHC (33.0-37.0) g/dL RDW (11.5-14.5) % Plt Count (130-400) K/uL MPV (7.2-11.7) fL Neut % (Auto) (50.0-75.0) % Lymph % (Auto) (20.0-40.0) % [place] % (Auto) (0.0-10.0) % Eos % (Auto) (0.0-4.0) % Baso % (Auto) (0.0-2.0) % Neut # (1.8-7.0) K/uL Lymph # (1.0-4.3) K/uL [place] # (0.0-0.8) K/uL Eos # (0.0-0.7) K/uL Baso # (0.0-0.2) K/uL Neutrophils % (Manual) 90 H (50-75) % Lymphocytes % (Manual) 6 L (20-40) % Monocytes % (Manual) 2 (0-10) % Eosinophils % (Manual) 1 (0-4) % Platelet Estimate Slightly decreased L (NORMAL) Hypochromasia (manual) Slight Anisocytosis (manual) Slight Sodium (132-148) mmol/L Potassium (3.6-5.2) mmol/L Chloride (98-107) mmol/L Carbon Dioxide (22-30) mmol/L Anion Gap (10-20) BUN (7-17) mg/dL Creatinine (0.7-1.2) MG/DL Est GFR ( Amer) Est GFR (Non-Af Amer) Random Glucose (65-105) mg/dL Calcium (8.6-10.4) mg/dl Phosphorus (2.5-4.5) mg/dL Magnesium (1.6-2.3) mg/dL Total Bilirubin (0.2-1.3) mg/dL AST (14-36) U/L ALT (9-52) U/L Alkaline Phosphatase (38-126) U/L Total Protein (6.3-8.3) g/dL Albumin (3.5-5.0) g/dL Globulin (2.2-3.9) gm/dL Albumin/Globulin Ratio (1.0-2.1) Laboratory Results - last 24 hr 10/13/16 10/13/16 10/13/16 06:15 08:08 09:59 WBC 9.8 RBC 3.12 L Hgb 9.2 L D Hct 28.5 L MCV 91.5 MCH 29.4 MCHC 32.1 L RDW 16.7 H Plt Count 125 L D MPV 7.5 Neut % (Auto) 82.1 H Lymph % (Auto) 7.1 L [place] % (Auto) 6.5 Eos % (Auto) 3.5 Baso % (Auto) 0.8 Neut # 8.1 H Lymph # 0.7 L [place] # 0.6 Eos # 0.3 Baso # 0.1 Neutrophils % (Manual) 90 H Lymphocytes % (Manual) 6 L Monocytes % (Manual) 2 Eosinophils % (Manual) 1 Platelet Estimate Slightly decreased L Hypochromasia (manual) Slight Anisocytosis (manual) Slight Sodium 136 Potassium 5.1 Chloride 102 Carbon Dioxide 26 Anion Gap 13 BUN 21 H Creatinine 3.5 H Est GFR ( Amer) 16 Est GFR (Non-Af Amer) 13 Random Glucose 78 Calcium 7.1 L Phosphorus 3.8 Magnesium 1.8 Total Bilirubin 1.3 AST 48 H D ALT 12 Alkaline Phosphatase 36 L D Total Protein 6.6 Albumin 3.0 L Globulin 3.6 Albumin/Globulin Ratio 0.8 L 10/13/16 16:01 WBC RBC Hgb Hct MCV MCH MCHC RDW Plt Count MPV Neut % (Auto) Lymph % (Auto) [place] % (Auto) Eos % (Auto) Baso % (Auto) Neut # Lymph # [place] # Eos # Baso # Neutrophils % (Manual) Lymphocytes % (Manual) Monocytes % (Manual) Eosinophils % (Manual) Platelet Estimate Hypochromasia (manual) Anisocytosis (manual) Sodium 135 Potassium 4.5 Chloride 93 L Carbon Dioxide 29 Anion Gap 18 BUN 24 H Creatinine 4.5 H Est GFR ( Amer) 12 Est GFR (Non-Af Amer) 10 Random Glucose 76 Calcium 7.9 L Phosphorus 3.9 Magnesium 1.9 Total Bilirubin AST ALT Alkaline Phosphatase Total Protein Albumin Globulin Albumin/Globulin Ratio Review of Systems - Constitutional Constitutional: absent: Fever, Chills, Sweats - EENT Nose/Mouth/Throat: Dental Pain, Lip Swelling, Facial Pain - Cardiovascular Cardiovascular: absent: Chest Pain - Respiratory Respiratory: absent: Dyspnea - Gastrointestinal Gastrointestinal: absent: Constipation, Diarrhea - Musculoskeletal Musculoskeletal: Limited Range of Motion (right arm has limited range of motion due to radial fracture) Critical Care Progress Note - Nutrition Nutrition: Nutrition Category Date Time Status Heart Healthy Diet [DIET] Diets 10/13/16 Dinner Active Assessment/Plan - Assessment and Plan (Free Text) Assessment: 70 year old female with history CAD,s/p stents, HTN, CHF, Hyperlipidemia, ESRD on Hemodialysis admitted with right forearm fractures,facial trauma and bilateral subdural hemtoma. Plan: Neuro: - No acute issues - Alert and oriented 3 - Subarachnoid hemorrhage - Head CT 10/13/16: No significant interval change in known bilateral parietal convexity subarachnoid hemorrhage, larger on the left with extension into the temporal lobe sulci. Mild chronic microangeiopathic changes and mild-age related global parenchymal volume loss. - Monitor Neurosurgery Consult: Dr. Yost Pulm: Chest X-ray 10/12/16: No acute findings. Persistent cardiomegaly and mild pulmonary venous congestion. No focal consolidation. CV: Cardiology Consult Dr. Butler Amlodopine 10mg PO daily Carvedilol 25mg PO BID Hydralazine 100mg PO Q8 Heme: H/H (10/14): 9.0/27.8 Patient is currently off antiplatelets and heparin Renal: End-Stage Renal Disease Dialysis Friday, , Friday Sevelamer Carbonate 800mg PO TIDCC Cinacalet 30mg PO HS Doxercalciferol 3mcg PO TID Nephrology Consult Dr. Hernández Endo: Cinacalet 30mg PO HS Doxercalciferol 3mcg PO TID GI: Pepcid 20mg PO daily ID: [facility] (10/11): MRSA not detected MSK: Right forearm fracture Wrist X-ray 10/11/16: Close reduction comminuted distal radial fracture and ulnar styloid process fracture. Maxillofacial without contrast 10/11/16: Significant right sided-facial soft tissue swelling. No definitive evidence of right-sided facial fractures seen. Minor mucosal thickening right maxillary antrum. The mandible appears intact. Ortho Consult Dr. Grimm DVT proph - SCDs, Heparin 5000u sc q12 GI proph - Pepcid 20mg PO daily Vitamin B, Vitamin C, Folic Acid PT/OT OOB to chair Code status - full code Dispo: stable for transfer to medical floor Case discussed with Dr. Nickie Waldron PGY-1
[2016-10-14] MEDS: Multivitamin Vitamin B Complex (Nephro-Vite) Tab PO SCH (08:03)
[2016-10-14 08:34] LABS: BASO # 0.1 K/uL (0.0-0.2); BASO % 1.1 % (0.0-2.0); EOS # 0.4 K/uL (0.0-0.7); EOS % 4.4 % (0.0-4.0); LYMPH # 0.8 K/uL (1.0-4.3); LYMPH % 8.9 % (20.0-40.0); MEAN CELL VOLUME 90.4 fL (81.0-99.0); MEAN CORPUSCULAR HEMOGLOBIN 29.3 pg (27.0-31.0); MEAN CORPUSCULAR HGB CONC 32.4 g/dL (33.0-37.0); MEAN PLATELET VOLUME 7.4 fL (7.2-11.7); MONO # 0.8 K/uL (0.0-0.8); MONO % 8.6 % (0.0-10.0); NEUT # 6.9 K/uL (1.8-7.0); PLATELET COUNT 140 K/uL (130-400); RBC 3.08 Mil/uL (3.80-5.20); RED CELL DISTRIBUTION WIDTH 16.1 % (11.5-14.5)
--- NOTE | 2016-10-14 09:02 | CP.PCM.PN ---
Subjective - Date & Time of Evaluation Date of Evaluation: 10/14/16 Time of Evaluation: 09:04 - Subjective Subjective: Cardiology Progress Note for Dr. Butler Patient seen and examined at bedside. Facial swelling notedly improved. Reports pain s/p fall is controlled with medication regimen. Patient denied any acute complaints of headache, dizziness, chest pain, SOB, cough, pain/swelling of her legs b/l. She was requesting a dialysis diet. Patient for HD on TThS schedule. Objective - Vital Signs/Intake and Output Vital Signs (last 24 hours): Temp Pulse Resp BP Pulse Ox 98.2 F 61 17 146/55 L 96 10/14/16 08:00 10/14/16 07:59 10/14/16 07:59 10/14/16 07:59 10/14/16 07:59 Intake and Output: 10/14/16 10/14/16 06:59 18:59 Intake Total 400 50 Output Total 0 Balance 400 50 - Medications Medications: Current Medications Acetaminophen (Tylenol 650mg/20.3ml Solution Ud) 650 mg PO Q6 PRN PRN Reason: Pain, Mild (1-3) Last Admin: 10/13/16 22:20 Dose: 650 mg Amlodipine Besylate (Norvasc) 10 mg PO DAILY [facility] Last Admin: 10/13/16 10:01 Dose: 10 mg Carvedilol (Coreg) 25 mg PO BID [facility] Last Admin: 10/13/16 17:41 Dose: 25 mg Cinacalcet (Sensipar) 30 mg PO HS [facility] Last Admin: 10/13/16 22:16 Dose: 30 mg Docusate Sodium (Colace) 100 mg PO TID [facility] Last Admin: 10/13/16 17:40 Dose: 100 mg Doxercalciferol (Hectorol) 3 mcg PO TTS [facility] Epoetin Anuj (Procrit) 4,000 unit IV TTS [facility] Famotidine (Pepcid) 20 mg PO DAILY [facility] Last Admin: 10/13/16 10:01 Dose: 20 mg Hydralazine HCl (Apresoline) 100 mg PO Q8 [facility] Last Admin: 10/14/16 06:06 Dose: 100 mg Lisinopril (Zestril) 20 mg PO BID [facility] Last Admin: 10/13/16 17:41 Dose: 20 mg Sevelamer Carbonate (Renvela) 800 mg PO TIDCC [facility] Last Admin: 10/14/16 08:03 Dose: 800 mg Vitamin B Complex/Vit C/Folic Acid (Nephro-Enedina) 1 tab PO 0800 [facility] Last Admin: 10/14/16 08:03 Dose: 1 tab - Labs Labs: 10/14/16 08:25 10/13/16 16:01 PT 13.4 SECONDS (9.7-12.2) H 10/11/16 15:23 INR 1.2 10/11/16 15:23 APTT 34 SECONDS (21-34) 10/11/16 15:23 - Constitutional Appears: No Acute Distress, Chronically Ill - Head Exam Head Exam: NORMOCEPHALIC - Eye Exam Eye Exam: EOMI, Normal appearance, Periorbital swelling, Periorbital tenderness , PERRL. absent: Conjunctival injection, Scleral icterus Pupil Exam: NORMAL ACCOMODATION Additional comments: R sided facial ecchymosis and b/l periorbital swelling noted - ENT Exam ENT Exam: Mucous Membranes Moist - Respiratory Exam Respiratory Exam: Clear to Ausculation Bilateral, NORMAL BREATHING PATTERN. absent: Accessory Muscle Use, Rales, Rhonchi, Wheezes - Cardiovascular Exam Cardiovascular Exam: REGULAR RHYTHM, RRR, +S1, +S2 - GI/Abdominal Exam GI & Abdominal Exam: Soft, Normal Bowel Sounds. absent: Firm, Guarding, Rigid, Tenderness - Extremities Exam Additional comments: R arm in cast - Neurological Exam Neurological Exam: Alert, Awake, Oriented x3 - Psychiatric Exam Psychiatric exam: Normal Affect, Normal Mood - Skin Skin Exam: Dry, Intact, Normal Color, Warm Assessment and Plan - Assessment and Plan (Free Text) Assessment: 70 y/o female with h/o CAD,s/p stents, HTN, CHF, Hyperlipidemia, ESRD on Hemodialysis admitted with right forearm fractures, facial trauma and bilateral subdural hemtoma Plan: CAD -Echo: LV EF 65-70% Mild concentric LVH LV diastolic function is normal Large intra atrial septal aneurysm without evidence of PFO or ASD. MV leaflets are mildly calcified. No restriction of the leaflets. Aortic valve is mildly calcified. Mitral regurgitation is mild to moderate. Mild tricuspid regurgitation PAP: 40-45mmHg RAP: 15mmHg IVD dilated with decreased collapse -Norvasc 10mg po daily -Coreg 25mg po bid -Hydralazine 100mg po q8 -Lisinopril 20mg po bid -Continue current management Discussed with Dr. Luke Angel PGY2
[2016-10-14 09:12] LABS: EOSINOPHIL 2 % (0-4); LYMPHOCYTE 11 % (20-40); MONOCYTE 2 % (0-10); NEUTROPHIL 85 % (50-75); PLATELET ESTIMATE NORMAL (NORMAL); TOTAL CELLS COUNTED 100
[2016-10-14 09:13] LABS: ANISOCYTOSIS SLIGHT; HYPOCHROMIC SLIGHT
[2016-10-14 09:23] LABS: ALB/GLOB RATIO 0.9 (1.0-2.1); ALBUMIN 3.2 g/dL (3.5-5.0); CALCIUM 7.8 mg/dl (8.6-10.4); MAGNESIUM 2.2 mg/dL (1.6-2.3)
--- NOTE | 2016-10-14 10:27 | CP.PCM.PN ---
Subjective - Date & Time of Evaluation Date of Evaluation: 10/14/16 Time of Evaluation: 10:24 - Subjective Subjective: Patient states pain in her wrist is improving. It is easier to move arm and fingers with less pain. Denies numbness/tingling. Objective - Vital Signs/Intake and Output Vital Signs (last 24 hours): Temp Pulse Resp BP Pulse Ox 98.2 F 61 17 146/55 L 96 10/14/16 08:00 10/14/16 07:59 10/14/16 07:59 10/14/16 07:59 10/14/16 07:59 Intake and Output: 10/14/16 10/14/16 06:59 18:59 Intake Total 400 50 Output Total 0 Balance 400 50 - Medications Medications: Current Medications Acetaminophen (Tylenol 650mg/20.3ml Solution Ud) 650 mg PO Q6 PRN PRN Reason: Pain, Mild (1-3) Last Admin: 10/13/16 22:20 Dose: 650 mg Amlodipine Besylate (Norvasc) 10 mg PO DAILY [facility] Last Admin: 10/13/16 10:01 Dose: 10 mg Carvedilol (Coreg) 25 mg PO BID [facility] Last Admin: 10/13/16 17:41 Dose: 25 mg Cinacalcet (Sensipar) 30 mg PO HS [facility] Last Admin: 10/13/16 22:16 Dose: 30 mg Docusate Sodium (Colace) 100 mg PO TID [facility] Last Admin: 10/13/16 17:40 Dose: 100 mg Doxercalciferol (Hectorol) 3 mcg PO TTS [facility] Epoetin Anuj (Procrit) 4,000 unit IV TTS [facility] Famotidine (Pepcid) 20 mg PO DAILY [facility] Last Admin: 10/13/16 10:01 Dose: 20 mg Hydralazine HCl (Apresoline) 100 mg PO Q8 [facility] Last Admin: 10/14/16 06:06 Dose: 100 mg Lisinopril (Zestril) 20 mg PO BID [facility] Last Admin: 10/13/16 17:41 Dose: 20 mg Sevelamer Carbonate (Renvela) 800 mg PO TIDCC [facility] Last Admin: 10/14/16 08:03 Dose: 800 mg Vitamin B Complex/Vit C/Folic Acid (Nephro-Enedina) 1 tab PO 0800 [facility] Last Admin: 10/14/16 08:03 Dose: 1 tab - Labs Labs: 10/14/16 08:25 10/14/16 08:25 PT 13.4 SECONDS (9.7-12.2) H 10/11/16 15:23 INR 1.2 10/11/16 15:23 APTT 34 SECONDS (21-34) 10/11/16 15:23 - Extremities Exam Additional comments: RUE: volar splint intact. +ROM fingers flex/ext/add/abd, thumb flex/ext, sensation intact to rad/med/ulnar nerve. cap refill < 2 seconds, fingers warm. Assessment and Plan (1) Closed fracture of right distal radius Assessment & Plan: Will plan possible closed reduction vs ORIF when medically cleared and optimized continue splint, elevation, Non weight bearing, encourage ROM fingers d/w Dr. Grimm, agrees with above Status: Acute (2) Displaced fracture of styloid process of right ulna Assessment & Plan: see above Status: Acute Radiology Interpretation - Radiology Interpretation #2 Interpretation: Accession No. : [id number] Patient Name / ID : YONI Buchanan [id number] Exam Date : 10/11/2016 15:27:14 ( Approved ) Study Comment : Sex / Age : F / 70Y Creator : Jayesh Fernandez MD Dictator : Jayesh Fernandez MD Management And Budget Analyst : Drier Tender Naphthalene : Jayesh Fernandez MD Approver2 : Report Date : 10/11/2016 16:02:05 My Comment : PROCEDURE: Right Knee Radiographs. HISTORY: right knee pain s/p fall COMPARISON: None. FINDINGS: BONES: Normal. No fracture. JOINTS: Normal. No osteoarthritis. JOINT EFFUSION: None. OTHER FINDINGS: None. IMPRESSION: Normal radiographs of the right knee. Patient Name / ID : YONI Buchanan [id number] Exam Date : 10/11/2016 15:26:35 ( Approved ) Study Comment : Sex / Age : F / 70Y Creator : Jayesh Fernandez MD Dictator : Jayesh Fernandez MD Management And Budget Analyst : Drier Tender Naphthalene : Jayesh Fernandez MD Approver2 : Report Date : 10/11/2016 16:05:03 My Comment : PROCEDURE: Right Wrist Radiographs. HISTORY: right wrist fx COMPARISON: None. FINDINGS: BONES: Comminuted, mildly displaced transverse fracture of the distal radius. No definite intra-articular extension. Displaced fracture of the ulnar styloid process. No carpal fracture identified. Scapholunate interval appears normal. JOINTS: Normal. No dislocation. SOFT TISSUES: Normal. OTHER FINDINGS: None. IMPRESSION: Comminuted mildly displaced transverse fracture distal radius. Displaced ulnar styloid process fracture. - Radiology Interpretation #3 Interpretation: Patient Name / ID : YONI JAIN / [id number] Exam Date : 10/11/2016 15:26:53 ( Approved ) Study Comment : Sex / Age : F Y Creator : Jayesh Fernandez MD Dictator : Jayesh Fernandez MD Management And Budget Analyst : Drier Tender Naphthalene : Jayesh Fernandez MD Approver2 : Report Date : 10/11/2016 16:03:35 My Comment : PROCEDURE: Right Thumb radiographs. HISTORY: right hand pain/fall COMPARISON: None. TECHNIQUE: AP radiograph of the right hand, as well as spot oblique and lateral images of thumb were obtained. FINDINGS: RIGHT THUMB: Normal right thumb, without fracture or focal lesion. Remainder of the right hand (as seen on the AP view) grossly unremarkable. JOINTS: Mild osteoarthritis 1st carpal -metacarpal articulation. 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 Remaining joint spaces and articular surfaces are preserved. SOFT TISSUES: Normal. OTHER FINDINGS: None. IMPRESSION: No acute fracture. 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 Patient Name / ID : YONI JAIN / [id number] Exam Date : 10/11/2016 17:58:29 ( Approved ) Study Comment : Sex / Age : F / 70Y Creator : Jaeysh Fernandez MD Dictator : Jayesh Fernandez MD Management And Budget Analyst : Drier Tender Naphthalene : Jayesh Fernandez MD Approver2 : Report Date : 10/11/2016 18:12:19 My Comment : PROCEDURE: Right Wrist Radiographs. HISTORY: postreduction COMPARISON: 10/11/2016 at 3:43 p.m. FINDINGS: BONES: The patient is status post close reduction of distal radial fracture. Once again, note is made of a comminuted transverse distal radial fracture. There is a minimally displaced fracture of the ulnar styloid process. There is no dislocation. JOINTS: Radiocarpal articulation grossly preserved. Intercarpal articulations are preserved. Normal carpal alignment is maintained. SOFT TISSUES: Normal. OTHER FINDINGS: None. IMPRESSION: Close reduction comminuted distal radial fracture and ulnar styloid process fracture.
--- NOTE | 2016-10-14 11:23 | CP.PCM.PN ---
Subjective - Date & Time of Evaluation Date of Evaluation: 10/14/16 Time of Evaluation: 10:30 - Subjective Subjective: Feels better today No c/o SOB Objective - Vital Signs/Intake and Output Vital Signs (last 24 hours): Temp Pulse Resp BP Pulse Ox 98.2 F 61 17 146/55 L 96 10/14/16 08:00 10/14/16 07:59 10/14/16 07:59 10/14/16 07:59 10/14/16 07:59 Intake and Output: 10/14/16 10/14/16 06:59 18:59 Intake Total 400 50 Output Total 0 Balance 400 50 - Medications Medications: Current Medications Acetaminophen (Tylenol 650mg/20.3ml Solution Ud) 650 mg PO Q6 PRN PRN Reason: Pain, Mild (1-3) Last Admin: 10/13/16 22:20 Dose: 650 mg Amlodipine Besylate (Norvasc) 10 mg PO DAILY [facility] Last Admin: 10/13/16 10:01 Dose: 10 mg Carvedilol (Coreg) 25 mg PO BID [facility] Last Admin: 10/13/16 17:41 Dose: 25 mg Cinacalcet (Sensipar) 30 mg PO HS [facility] Last Admin: 10/13/16 22:16 Dose: 30 mg Docusate Sodium (Colace) 100 mg PO TID [facility] Last Admin: 10/13/16 17:40 Dose: 100 mg Doxercalciferol (Hectorol) 3 mcg PO TTS [facility] Epoetin Anuj (Procrit) 4,000 unit IV TTS [facility] Famotidine (Pepcid) 20 mg PO DAILY [facility] Last Admin: 10/13/16 10:01 Dose: 20 mg Hydralazine HCl (Apresoline) 100 mg PO Q8 [facility] Last Admin: 10/14/16 06:06 Dose: 100 mg Lisinopril (Zestril) 20 mg PO BID [facility] Last Admin: 10/13/16 17:41 Dose: 20 mg Sevelamer Carbonate (Renvela) 800 mg PO TIDCC [facility] Last Admin: 10/14/16 08:03 Dose: 800 mg Vitamin B Complex/Vit C/Folic Acid (Nephro-Enedina) 1 tab PO 0800 [facility] Last Admin: 10/14/16 08:03 Dose: 1 tab - Labs Labs: 10/14/16 08:25 10/14/16 08:25 PT 13.4 SECONDS (9.7-12.2) H 10/11/16 15:23 INR 1.2 10/11/16 15:23 APTT 34 SECONDS (21-34) 10/11/16 15:23 - Respiratory Exam Additional comments: Lungs clear - Cardiovascular Exam Cardiovascular Exam: REGULAR RHYTHM - Extremities Exam Additional comments: No pedal edema. Rt forearm wrapped. Able to move Rt hand fingers & thumb Assessment and Plan - Assessment and Plan (Free Text) Assessment: ESRD on [facility] HD S?P fall sustaining B/L subarachnoid hemorrhages/small intracerebral contusion Rt wrist Fx HTN controlled Plan: For dialysis tomorrow Volume , BP controlled
--- NOTE | 2016-10-14 12:01 | CP.PCM.PN ---
Subjective - Date & Time of Evaluation Date of Evaluation: 10/14/16 Time of Evaluation: 11:58 - Subjective Subjective: confirming previous communication: Pt now with 3 CT scans last 2 both unchanged no need from Nrs standpoint for cont hospitalization mgmt per other clinicians as indicated Objective - Vital Signs/Intake and Output Vital Signs (last 24 hours): Temp Pulse Resp BP Pulse Ox 98.2 F 61 17 163/57 H 96 10/14/16 08:00 10/14/16 07:59 10/14/16 07:59 10/14/16 11:31 10/14/16 07:59 Intake and Output: 10/14/16 10/14/16 06:59 18:59 Intake Total 400 50 Output Total 0 Balance 400 50 - Medications Medications: Current Medications Acetaminophen (Tylenol 650mg/20.3ml Solution Ud) 650 mg PO Q6 PRN PRN Reason: Pain, Mild (1-3) Last Admin: 10/13/16 22:20 Dose: 650 mg Amlodipine Besylate (Norvasc) 10 mg PO DAILY [facility] Last Admin: 10/14/16 11:30 Dose: 10 mg Carvedilol (Coreg) 25 mg PO BID [facility] Last Admin: 10/14/16 11:31 Dose: 25 mg Cinacalcet (Sensipar) 30 mg PO HS [facility] Last Admin: 10/13/16 22:16 Dose: 30 mg Docusate Sodium (Colace) 100 mg PO TID [facility] Last Admin: 10/14/16 11:31 Dose: 100 mg Doxercalciferol (Hectorol) 3 mcg PO TTS [facility] Epoetin Anuj (Procrit) 4,000 unit IV TTS [facility] Famotidine (Pepcid) 20 mg PO DAILY [facility] Last Admin: 10/14/16 11:31 Dose: 20 mg Hydralazine HCl (Apresoline) 100 mg PO Q8 [facility] Last Admin: 10/14/16 06:06 Dose: 100 mg Lisinopril (Zestril) 20 mg PO BID [facility] Last Admin: 10/14/16 11:31 Dose: 20 mg Sevelamer Carbonate (Renvela) 800 mg PO TIDCC [facility] Last Admin: 10/14/16 11:30 Dose: 800 mg Vitamin B Complex/Vit C/Folic Acid (Nephro-Enedina) 1 tab PO 0800 [facility] Last Admin: 10/14/16 08:03 Dose: 1 tab - Labs Labs: 10/14/16 08:25 10/14/16 08:25 PT 13.4 SECONDS (9.7-12.2) H 10/11/16 15:23 INR 1.2 10/11/16 15:23 APTT 34 SECONDS (21-34) 10/11/16 15:23
--- NOTE | 2016-10-14 14:06 | CARD ---
APPROVED REPORT EKG Measurement Heart [id number] <Conclusion> Normal sinus rhythm Possible Left atrial enlargement Left ventricular hypertrophy Abnormal ECG
[2016-10-14] MEDS: Acetaminophen 650mg/20.3ml solution UD PO PRN (14:10)
--- NOTE | 2016-10-14 17:22 | CP.PCM.PN ---
Subjective - Date & Time of Evaluation Date of Evaluation: 10/14/16 Time of Evaluation: 11:00 - Subjective Subjective: Patient seen and evaluated No cardiac events so far Denies chest pain and dyspnea Physical Examination - Constitutional Appears: No Acute Distress, Chronically Ill - Head Exam Head Exam: NORMOCEPHALIC - Eye Exam Eye Exam: EOMI, Normal appearance, Periorbital swelling, Periorbital tenderness , PERRL. absent: Conjunctival injection, Scleral icterus Pupil Exam: NORMAL ACCOMODATION Additional comments: R sided facial ecchymosis and b/l periorbital swelling noted - ENT Exam ENT Exam: Mucous Membranes Moist - Respiratory Exam Respiratory Exam: Clear to Ausculation Bilateral, NORMAL BREATHING PATTERN. absent: Accessory Muscle Use, Rales, Rhonchi, Wheezes - Cardiovascular Exam Cardiovascular Exam: REGULAR RHYTHM, RRR, +S1, +S2 - GI/Abdominal Exam GI & Abdominal Exam: Soft, Normal Bowel Sounds. absent: Firm, Guarding, Rigid, Tenderness - Extremities Exam Additional comments: R arm in cast - Neurological Exam Neurological Exam: Alert, Awake, Oriented x3 - Psychiatric Exam Psychiatric exam: Normal Affect, Normal Mood - Skin Skin Exam: Dry, Intact, Normal Color, Warm Objective - Vital Signs/Intake and Output Vital Signs (last 24 hours): Temp Pulse Resp BP Pulse Ox 98.2 F 61 17 163/57 H 96 10/14/16 08:00 10/14/16 07:59 10/14/16 07:59 10/14/16 11:31 10/14/16 07:59 Intake and Output: 10/14/16 10/14/16 06:59 18:59 Intake Total 400 50 Output Total 0 Balance 400 50 - Medications Medications: Current Medications Acetaminophen (Tylenol 650mg/20.3ml Solution Ud) 650 mg PO Q6 PRN PRN Reason: Pain, Mild (1-3) Last Admin: 10/14/16 14:10 Dose: 650 mg Amlodipine Besylate (Norvasc) 10 mg PO DAILY [facility] Last Admin: 10/14/16 11:30 Dose: 10 mg Carvedilol (Coreg) 25 mg PO BID [facility] Last Admin: 10/14/16 11:31 Dose: 25 mg Cinacalcet (Sensipar) 30 mg PO HS [facility] Last Admin: 10/13/16 22:16 Dose: 30 mg Docusate Sodium (Colace) 100 mg PO TID [facility] Last Admin: 10/14/16 14:11 Dose: 100 mg Doxercalciferol (Hectorol) 0.5 mcg PO TTS [facility] Doxercalciferol (Hectorol) 2.5 mcg PO TTS [facility] Epoetin Anuj (Procrit) 4,000 unit IV TTS [facility] Famotidine (Pepcid) 20 mg PO DAILY [facility] Last Admin: 10/14/16 11:31 Dose: 20 mg Hydralazine HCl (Apresoline) 100 mg PO Q8 [facility] Last Admin: 10/14/16 14:12 Dose: 100 mg Lisinopril (Zestril) 20 mg PO BID [facility] Last Admin: 10/14/16 11:31 Dose: 20 mg Sevelamer Carbonate (Renvela) 800 mg PO TIDCC [facility] Last Admin: 10/14/16 11:30 Dose: 800 mg Vitamin B Complex/Vit C/Folic Acid (Nephro-Enedina) 1 tab PO 0800 [facility] Last Admin: 10/14/16 08:03 Dose: 1 tab - Labs Labs: 10/14/16 08:25 10/14/16 08:25 PT 13.4 SECONDS (9.7-12.2) H 10/11/16 15:23 INR 1.2 10/11/16 15:23 APTT 34 SECONDS (21-34) 10/11/16 15:23 Assessment and Plan - Assessment and Plan (Free Text) Assessment: 70 year old female with history CAD,s/p stents, HTN, CHF, Hyperlipidemia, ESRD on Hemodialysis admitted with right forearm fractures,facial trauma and bilateral subdural hemtoma. Plan: Neuro: - No acute issues - Alert and oriented 3 - Subarachnoid hemorrhage - Head CT 10/13/16: No significant interval change in known bilateral parietal convexity subarachnoid hemorrhage, larger on the left with extension into the temporal lobe sulci. Mild chronic microangeiopathic changes and mild-age related global parenchymal volume loss. - Monitor Neurosurgery Consult: Dr. Yost Pulm: Chest X-ray 10/12/16: No acute findings. Persistent cardiomegaly and mild pulmonary venous congestion. No focal consolidation. CV: Amlodopine 10mg PO daily Carvedilol 25mg PO BID Hydralazine 100mg PO Q8 Heme: H/H (10/14): 9.0/27.8 Patient is currently off antiplatelets and heparin Renal: End-Stage Renal Disease Dialysis Friday, , Friday Sevelamer Carbonate 800mg PO TIDCC Cinacalet 30mg PO HS Doxercalciferol 3mcg PO TID Nephrology Consult Dr. Hernández Endo: Cinacalet 30mg PO HS Doxercalciferol 3mcg PO TID GI: Pepcid 20mg PO daily ID: Naris (10/11): MRSA not detected MSK: Right forearm fracture Wrist X-ray 10/11/16: Close reduction comminuted distal radial fracture and ulnar styloid process fracture. Maxillofacial without contrast 10/11/16: Significant right sided-facial soft tissue swelling. No definitive evidence of right-sided facial fractures seen. Minor mucosal thickening right maxillary antrum. The mandible appears intact. Ortho Consult Dr. Grimm DVT proph - SCDs, Heparin 5000u sc q12 GI proph - Pepcid 20mg PO daily Vitamin B, Vitamin C, Folic Acid PT/OT OOB to chair Patient s/p Multi vessel PCI. Need Neuro surgery clearance to re start anti platelets
[2016-10-15 06:56] LABS: BASO # 0.1 K/uL (0.0-0.2); BASO % 0.9 % (0.0-2.0); EOS # 0.3 K/uL (0.0-0.7); HEMOGLOBIN 9.4 g/dL (11.0-16.0); LYMPH # 0.8 K/uL (1.0-4.3); LYMPH % 9.7 % (20.0-40.0); MEAN CORPUSCULAR HEMOGLOBIN 29.4 pg (27.0-31.0); MEAN CORPUSCULAR HGB CONC 32.7 g/dL (33.0-37.0); MEAN PLATELET VOLUME 7.7 fL (7.2-11.7); MONO # 0.6 K/uL (0.0-0.8); MONO % 7.3 % (0.0-10.0); NEUT # 6.1 K/uL (1.8-7.0); NEUT % 78.1 % (50.0-75.0); NRBC % 0.1 % (0.0-2.0); PLATELET COUNT 150 K/uL (130-400); RBC 3.19 Mil/uL (3.80-5.20); RED CELL DISTRIBUTION WIDTH 16.2 % (11.5-14.5); WHITE BLOOD COUNT 7.8 K/uL (4.8-10.8)
--- NOTE | 2016-10-15 07:05 | CP.PCM.PN ---
Subjective - Date & Time of Evaluation Date of Evaluation: 10/15/16 Time of Evaluation: 07:05 Objective - Vital Signs/Intake and Output Vital Signs (last 24 hours): Temp Pulse Resp BP Pulse Ox 98.2 F 58 L 11 L 150/59 L 99 10/15/16 00:00 10/15/16 03:00 10/15/16 03:00 10/15/16 02:19 10/15/16 03:00 Intake and Output: 10/15/16 10/15/16 06:59 18:59 Intake Total 100 Output Total 0 Balance 100 - Medications Medications: Current Medications Acetaminophen (Tylenol 650mg/20.3ml Solution Ud) 650 mg PO Q6 PRN PRN Reason: Pain, Mild (1-3) Last Admin: 10/14/16 14:10 Dose: 650 mg Amlodipine Besylate (Norvasc) 10 mg PO DAILY [facility] Last Admin: 10/14/16 11:30 Dose: 10 mg Carvedilol (Coreg) 25 mg PO BID [facility] Last Admin: 10/14/16 17:46 Dose: 25 mg Cinacalcet (Sensipar) 30 mg PO HS [facility] Last Admin: 10/14/16 22:00 Dose: 30 mg Docusate Sodium (Colace) 100 mg PO TID [facility] Last Admin: 10/14/16 17:44 Dose: 100 mg Doxercalciferol (Hectorol) 0.5 mcg PO TTS [facility] Doxercalciferol (Hectorol) 2.5 mcg PO TTS [facility] Epoetin Anuj (Procrit) 4,000 unit IV TTS [facility] Famotidine (Pepcid) 20 mg PO DAILY [facility] Last Admin: 10/14/16 11:31 Dose: 20 mg Hydralazine HCl (Apresoline) 100 mg PO Q8 [facility] Last Admin: 10/14/16 21:59 Dose: 100 mg Lisinopril (Zestril) 20 mg PO BID [facility] Last Admin: 10/14/16 17:44 Dose: 20 mg Sevelamer Carbonate (Renvela) 800 mg PO TIDCC [facility] Last Admin: 10/14/16 17:44 Dose: 800 mg Vitamin B Complex/Vit C/Folic Acid (Nephro-Enedina) 1 tab PO 0800 [facility] Last Admin: 10/14/16 08:03 Dose: 1 tab - Labs Labs: 10/15/16 06:51 10/14/16 08:25 PT 13.4 SECONDS (9.7-12.2) H 10/11/16 15:23 INR 1.2 10/11/16 15:23 APTT 34 SECONDS (21-34) 10/11/16 15:23
[2016-10-15 07:10] LABS: IRON 38 ug/dL (37-170)
[2016-10-15 07:13] LABS: ALBUMIN 3.2 g/dL (3.5-5.0)
[2016-10-15 07:16] LABS: ALB/GLOB RATIO 0.9 (1.0-2.1)
[2016-10-15 07:17] LABS: CALCIUM 7.8 mg/dl (8.6-10.4); MAGNESIUM 2.1 mg/dL (1.6-2.3)
[2016-10-15 07:20] LABS: % IRON SATURATION 23 (20-55); TOTAL IRON BINDING CAPACITY 166 ug/dL (250-450)
[2016-10-15] MEDS: Multivitamin Vitamin B Complex (Nephro-Vite) Tab PO SCH (07:45)
[2016-10-15 09:45] LABS: EOSINOPHIL 4 % (0-4); LYMPHOCYTE 9 % (20-40); MONOCYTE 6 % (0-10); NEUTROPHIL 81 % (50-75); TOTAL CELLS COUNTED 100
[2016-10-15 09:46] LABS: ANISOCYTOSIS SLIGHT; HYPOCHROMIC SLIGHT; OVALOCYTES SLIGHT; PLATELET ESTIMATE NORMAL (NORMAL); POIKILOCYTOSIS SLIGHT; POLYCHROMIC SLIGHT
[2016-10-15 09:59] LABS: TOXIC GRANULATION PRESENT
[2016-10-15] MEDS: DOXERCALCIFEROL 2.5 MCG PO SCH (10:45)
[2016-10-15] MEDS: EPOETIN ALFA 4,000 UNIT/ML ML Dialysis IV SCH (10:57)
--- NOTE | 2016-10-15 12:19 | CP.PCM.PN ---
Subjective - Date & Time of Evaluation Date of Evaluation: 10/15/16 Time of Evaluation: 11:30 - Subjective Subjective: Currently on dialysis. No SOB BP 184/67 Objective - Vital Signs/Intake and Output Vital Signs (last 24 hours): Temp Pulse Resp BP Pulse Ox 97.5 F L 70 10 L 164/63 H 97 10/15/16 09:25 10/15/16 11:12 10/15/16 11:12 10/15/16 11:25 10/15/16 11:12 Intake and Output: 10/15/16 10/15/16 06:59 18:59 Intake Total 100 520 Output Total 0 0 Balance 100 520 - Medications Medications: Current Medications Acetaminophen (Tylenol 650mg/20.3ml Solution Ud) 650 mg PO Q6 PRN PRN Reason: Pain, Mild (1-3) Last Admin: 10/14/16 14:10 Dose: 650 mg Amlodipine Besylate (Norvasc) 10 mg PO DAILY [facility] Last Admin: 10/15/16 10:46 Dose: 10 mg Carvedilol (Coreg) 25 mg PO BID [facility] Last Admin: 10/15/16 10:45 Dose: 25 mg Cinacalcet (Sensipar) 30 mg PO HS [facility] Last Admin: 10/14/16 22:00 Dose: 30 mg Docusate Sodium (Colace) 100 mg PO TID [facility] Last Admin: 10/15/16 10:46 Dose: 100 mg Doxercalciferol (Hectorol) 0.5 mcg PO TTS [facility] Last Admin: 10/15/16 10:45 Dose: 0.5 mcg Doxercalciferol (Hectorol) 2.5 mcg PO TTS [facility] Last Admin: 10/15/16 10:45 Dose: 2.5 mcg Epoetin Anuj (Procrit) 4,000 unit IV TTS [facility] Last Admin: 10/15/16 10:57 Dose: 4,000 unit Famotidine (Pepcid) 20 mg PO DAILY [facility] Last Admin: 10/15/16 10:45 Dose: 20 mg Hydralazine HCl (Apresoline) 100 mg PO Q8 [facility] Last Admin: 10/15/16 06:00 Dose: 100 mg Lisinopril (Zestril) 20 mg PO BID [facility] Last Admin: 10/15/16 10:45 Dose: 20 mg Sevelamer Carbonate (Renvela) 800 mg PO TIDCC [facility] Last Admin: 10/15/16 07:44 Dose: 800 mg Vitamin B Complex/Vit C/Folic Acid (Nephro-Enedina) 1 tab PO 0800 [facility] Last Admin: 10/15/16 07:45 Dose: 1 tab - Labs Labs: 10/15/16 06:51 10/15/16 06:51 PT 13.4 SECONDS (9.7-12.2) H 10/11/16 15:23 INR 1.2 10/11/16 15:23 APTT 34 SECONDS (21-34) 10/11/16 15:23 - Head Exam Additional comments: Decrease in Rt facial bruises - Respiratory Exam Additional comments: Lungs clear - Cardiovascular Exam Cardiovascular Exam: REGULAR RHYTHM - Extremities Exam Additional comments: No pedal edema Assessment and Plan - Assessment and Plan (Free Text) Assessment: ESRD on HD HTN SDH S/P fall Plan: UF goal is increased today Hyponatremia is dilutional Monitor BP
[2016-10-15] MEDS: Acetaminophen 650mg/20.3ml solution UD PO PRN (19:11)
[2016-10-15] MEDS: levETIRAcetam 500 MG in Sodium Chloride 0.9% 100 ML IVPB SCH (19:12)
--- NOTE | 2016-10-15 20:55 | CP.PCM.PN ---
<Ger Sue - Last Filed: 10/15/16 20:53> Subjective - Date & Time of Evaluation Date of Evaluation: 10/15/16 Time of Evaluation: 16:00 - Subjective Subjective: Patient seen and examined at bedside. Patient is not in acute distress. She was resting comfortably in bed. Some improvement in facial swelling noted. Not in any pain currently. Patient for HD on TThS schedule. Patient denied any acute complaints of headache, dizziness, chest pain, SOB, cough, pain/swelling of her legs b/l. Objective - Vital Signs/Intake and Output Vital Signs (last 24 hours): Temp Pulse Resp BP Pulse Ox 98.6 F 67 12 160/62 H 95 10/15/16 16:00 10/15/16 16:59 10/15/16 16:59 10/15/16 17:22 10/15/16 16:59 Intake and Output: 10/15/16 10/16/16 18:59 06:59 Intake Total 940 200 Output Total 100 Balance 840 200 - Medications Medications: Current Medications Acetaminophen (Tylenol 650mg/20.3ml Solution Ud) 650 mg PO Q6 PRN PRN Reason: Pain, Mild (1-3) Last Admin: 10/15/16 19:11 Dose: 650 mg Amlodipine Besylate (Norvasc) 10 mg PO DAILY [facility] Last Admin: 10/15/16 10:46 Dose: 10 mg Carvedilol (Coreg) 25 mg PO BID [facility] Last Admin: 10/15/16 17:22 Dose: 25 mg Cinacalcet (Sensipar) 30 mg PO HS [facility] Last Admin: 10/14/16 22:00 Dose: 30 mg Docusate Sodium (Colace) 100 mg PO TID [facility] Last Admin: 10/15/16 17:22 Dose: 100 mg Doxercalciferol (Hectorol) 0.5 mcg PO TTS [facility] Last Admin: 10/15/16 10:45 Dose: 0.5 mcg Doxercalciferol (Hectorol) 2.5 mcg PO TTS [facility] Last Admin: 10/15/16 10:45 Dose: 2.5 mcg Epoetin Anuj (Procrit) 4,000 unit IV TTS [facility] Last Admin: 10/15/16 10:57 Dose: 4,000 unit Famotidine (Pepcid) 20 mg PO DAILY [facility] Last Admin: 10/15/16 10:45 Dose: 20 mg Hydralazine HCl (Apresoline) 100 mg PO Q8 [facility] Last Admin: 10/15/16 14:51 Dose: 100 mg Levetiracetam 500 mg/ Sodium (Chloride) 105 mls @ 420 mls/hr IVPB Q12H [facility] Last Admin: 10/15/16 19:12 Dose: 420 mls/hr Lisinopril (Zestril) 20 mg PO BID [facility] Last Admin: 10/15/16 17:22 Dose: 20 mg Sevelamer Carbonate (Renvela) 800 mg PO TIDCC [facility] Last Admin: 10/15/16 17:22 Dose: 800 mg Vitamin B Complex/Vit C/Folic Acid (Nephro-Enedina) 1 tab PO 0800 [facility] Last Admin: 10/15/16 07:45 Dose: 1 tab - Labs Labs: 10/15/16 06:51 10/15/16 06:51 PT 13.4 SECONDS (9.7-12.2) H 10/11/16 15:23 INR 1.2 10/11/16 15:23 APTT 34 SECONDS (21-34) 10/11/16 15:23 - Constitutional Appears: No Acute Distress, Chronically Ill - Head Exam Head Exam: NORMAL INSPECTION Additional comments: R sided facial ecchymosis and b/l periorbital swelling noted - Eye Exam Eye Exam: EOMI - ENT Exam ENT Exam: Mucous Membranes Moist - Neck Exam Neck Exam: Normal Inspection - Respiratory Exam Respiratory Exam: Clear to Ausculation Bilateral, NORMAL BREATHING PATTERN - Cardiovascular Exam Cardiovascular Exam: REGULAR RHYTHM, +S1, +S2. absent: Murmur - GI/Abdominal Exam GI & Abdominal Exam: Soft, Normal Bowel Sounds. absent: Tenderness - Rectal Exam Rectal Exam: Deferred - Extremities Exam Additional comments: R arm in cast - Neurological Exam Neurological Exam: Alert, Awake, Oriented x3 - Psychiatric Exam Psychiatric exam: Normal Affect, Normal Mood - Skin Skin Exam: Dry, Intact, Normal Color, Warm Assessment and Plan (1) Trauma Status: Acute (2) Coronary artery disease Status: Acute (3) HTN (hypertension) Status: Acute (4) Cataract Status: Acute (5) ESRD (end stage renal disease) on dialysis Status: Acute (6) Anemia Status: Acute (7) Prophylactic measure Status: Acute - Assessment and Plan (Free Text) Assessment: 70 year old female with history CAD,s/p stents, HTN, CHF, Hyperlipidemia, ESRD on Hemodialysis admitted with right forearm fractures,facial trauma and bilateral subdural hemtoma. Plan: Neuro: - No acute issues - Alert and oriented 3 - Subarachnoid hemorrhage - Head CT 10/13/16: No significant interval change in known bilateral parietal convexity subarachnoid hemorrhage, larger on the left with extension into the temporal lobe sulci. Mild chronic microangeiopathic changes and mild-age related global parenchymal volume loss. - Monitor Neurosurgery Consult: Dr. Yost Pulm: Chest X-ray 10/12/16: No acute findings. Persistent cardiomegaly and mild pulmonary venous congestion. No focal consolidation. CV: Cardiology Consult Dr. Butler Amlodopine 10mg PO daily Carvedilol 25mg PO BID Hydralazine 100mg PO Q8 Heme: H/H (10/14): 9.0/27.8 Patient is currently off antiplatelets and heparin Renal: End-Stage Renal Disease Dialysis Friday, , Friday Sevelamer Carbonate 800mg PO TIDCC Cinacalet 30mg PO HS Doxercalciferol 3mcg PO TID Nephrology Consult Dr. Hernández Endo: Cinacalet 30mg PO HS Doxercalciferol 3mcg PO TID GI: Pepcid 20mg PO daily ID: Naris (10/11): MRSA not detected MSK: Right forearm fracture Wrist X-ray 10/11/16: Close reduction comminuted distal radial fracture and ulnar styloid process fracture. Maxillofacial without contrast 10/11/16: Significant right sided-facial soft tissue swelling. No definitive evidence of right-sided facial fractures seen. Minor mucosal thickening right maxillary antrum. The mandible appears intact. Ortho Consult Dr. Grimm DVT proph - SCDs, Heparin 5000u sc q12 GI proph - Pepcid 20mg PO daily Vitamin B, Vitamin C, Folic Acid PT/OT OOB to chair Code status - full code Dispo: stable for transfer to medical floor <Kali Moya Jr. - Last Filed: 10/22/16 10:31> Objective - Vital Signs/Intake and Output Vital Signs (last 24 hours): Temp Pulse Resp BP Pulse Ox 98.3 F 56 L 20 145/69 95 10/18/16 17:47 10/18/16 17:47 10/18/16 17:47 10/18/16 18:14 10/18/16 17:47 - Labs Labs: 10/18/16 08:32 10/18/16 08:32 PT 13.4 SECONDS (9.7-12.2) H 10/11/16 15:23 INR 1.2 10/11/16 15:23 APTT 34 SECONDS (21-34) 10/11/16 15:23 Attending/Attestation - Attestation I have personally seen and examined this patient.: Yes I have fully participated in the care of the patient.: Yes I have reviewed all pertinent clinical information, including history, physical exam and plan: Yes Notes (Text): 10/22/16 10:31 Agree with resident note and findings
[2016-10-16] MEDS: levETIRAcetam 500 MG in Sodium Chloride 0.9% 100 ML IVPB SCH ×2 (05:52→17:40)
[2016-10-16 06:35] LABS: BASO # 0.1 K/uL (0.0-0.2); BASO % 0.9 % (0.0-2.0); EOS # 0.2 K/uL (0.0-0.7); EOS % 2.4 % (0.0-4.0); HEMOGLOBIN 9.3 g/dL (11.0-16.0); LYMPH # 0.8 K/uL (1.0-4.3); LYMPH % 11.7 % (20.0-40.0); MEAN CELL VOLUME 89.6 fL (81.0-99.0); MEAN CORPUSCULAR HEMOGLOBIN 29.1 pg (27.0-31.0); MEAN CORPUSCULAR HGB CONC 32.5 g/dL (33.0-37.0); MEAN PLATELET VOLUME 7.3 fL (7.2-11.7); MONO # 0.7 K/uL (0.0-0.8); MONO % 10.2 % (0.0-10.0); NEUT # 5.1 K/uL (1.8-7.0); NEUT % 74.8 % (50.0-75.0); RBC 3.19 Mil/uL (3.80-5.20); RED CELL DISTRIBUTION WIDTH 16.6 % (11.5-14.5); WHITE BLOOD COUNT 6.8 K/uL (4.8-10.8)
[2016-10-16 06:57] LABS: ALBUMIN 3.1 g/dL (3.5-5.0)
[2016-10-16 07:01] LABS: ALB/GLOB RATIO 0.9 (1.0-2.1); CALCIUM 7.7 mg/dl (8.6-10.4)
[2016-10-16 07:02] LABS: MAGNESIUM 2.1 mg/dL (1.6-2.3)
[2016-10-16] MEDS: Multivitamin Vitamin B Complex (Nephro-Vite) Tab PO SCH (08:37)
--- NOTE | 2016-10-16 08:39 | CP.PCM.PN ---
Subjective - Date & Time of Evaluation Date of Evaluation: 10/16/16 Time of Evaluation: 06:50 - Subjective Subjective: POST TRAUMATIC SAH SEEN BY DR LEPE YESTERDAY DENIED HEADACHE AND NO VISUAL SYMPTOMS VS STABLE PLAN: KEEP MAP 100 HEAD END ELEVATION KEPPRA STARTED EMPIRICALLY MRI BRAIN AND MRA SCHEDULED REC EEG Objective - Vital Signs/Intake and Output Vital Signs (last 24 hours): Temp Pulse Resp BP Pulse Ox 98.4 F 62 18 130/63 98 10/16/16 07:57 10/16/16 07:57 10/16/16 07:57 10/16/16 07:57 10/16/16 07:57 Intake and Output: 10/16/16 10/16/16 06:59 18:59 Intake Total 400 Output Total 50 Balance 350 - Medications Medications: Current Medications Acetaminophen (Tylenol 650mg/20.3ml Solution Ud) 650 mg PO Q6 PRN PRN Reason: Pain, Mild (1-3) Last Admin: 10/15/16 19:11 Dose: 650 mg Amlodipine Besylate (Norvasc) 10 mg PO DAILY [facility] Last Admin: 10/15/16 10:46 Dose: 10 mg Carvedilol (Coreg) 25 mg PO BID [facility] Last Admin: 10/15/16 17:22 Dose: 25 mg Cinacalcet (Sensipar) 30 mg PO HS [facility] Last Admin: 10/15/16 21:23 Dose: 30 mg Docusate Sodium (Colace) 100 mg PO TID [facility] Last Admin: 10/15/16 17:22 Dose: 100 mg Doxercalciferol (Hectorol) 0.5 mcg PO TTS [facility] Last Admin: 10/15/16 10:45 Dose: 0.5 mcg Doxercalciferol (Hectorol) 2.5 mcg PO TTS [facility] Last Admin: 10/15/16 10:45 Dose: 2.5 mcg Epoetin Anuj (Procrit) 4,000 unit IV TTS [facility] Last Admin: 10/15/16 10:57 Dose: 4,000 unit Famotidine (Pepcid) 20 mg PO DAILY [facility] Last Admin: 10/15/16 10:45 Dose: 20 mg Hydralazine HCl (Apresoline) 100 mg PO Q8 [facility] Last Admin: 10/16/16 07:11 Dose: 100 mg Levetiracetam 500 mg/ Sodium (Chloride) 105 mls @ 420 mls/hr IVPB Q12H [facility] Last Admin: 10/16/16 05:52 Dose: 420 mls/hr Lisinopril (Zestril) 20 mg PO BID [facility] Last Admin: 10/15/16 17:22 Dose: 20 mg Sevelamer Carbonate (Renvela) 800 mg PO TIDCC [facility] Last Admin: 10/15/16 17:22 Dose: 800 mg Vitamin B Complex/Vit C/Folic Acid (Nephro-Enedina) 1 tab PO 0800 [facility] Last Admin: 10/15/16 07:45 Dose: 1 tab - Labs Labs: 10/16/16 06:27 10/16/16 06:27 PT 13.4 SECONDS (9.7-12.2) H 10/11/16 15:23 INR 1.2 10/11/16 15:23 APTT 34 SECONDS (21-34) 10/11/16 15:23
--- NOTE | 2016-10-16 09:42 | CP.PCM.PN ---
Subjective - Date & Time of Evaluation Date of Evaluation: 10/16/16 Time of Evaluation: 11:01 - Subjective Subjective: Patient states she has occasional pain in her wrist, but overall, improving. Denies numbness/tingling. Objective - Vital Signs/Intake and Output Vital Signs (last 24 hours): Temp Pulse Resp BP Pulse Ox 98.4 F 62 18 149/53 L 98 10/16/16 07:57 10/16/16 07:57 10/16/16 07:57 10/16/16 09:15 10/16/16 07:57 Intake and Output: 10/16/16 10/16/16 06:59 18:59 Intake Total 400 Output Total 50 Balance 350 - Medications Medications: Current Medications Acetaminophen (Tylenol 650mg/20.3ml Solution Ud) 650 mg PO Q6 PRN PRN Reason: Pain, Mild (1-3) Last Admin: 10/15/16 19:11 Dose: 650 mg Amlodipine Besylate (Norvasc) 10 mg PO DAILY [facility] Last Admin: 10/16/16 09:15 Dose: 10 mg Carvedilol (Coreg) 25 mg PO BID [facility] Last Admin: 10/16/16 09:15 Dose: 25 mg Cinacalcet (Sensipar) 30 mg PO HS [facility] Last Admin: 10/15/16 21:23 Dose: 30 mg Docusate Sodium (Colace) 100 mg PO TID [facility] Last Admin: 10/16/16 09:15 Dose: 100 mg Doxercalciferol (Hectorol) 0.5 mcg PO TTS [facility] Last Admin: 10/15/16 10:45 Dose: 0.5 mcg Doxercalciferol (Hectorol) 2.5 mcg PO TTS [facility] Last Admin: 10/15/16 10:45 Dose: 2.5 mcg Epoetin Anuj (Procrit) 4,000 unit IV TTS [facility] Last Admin: 10/15/16 10:57 Dose: 4,000 unit Famotidine (Pepcid) 20 mg PO DAILY [facility] Last Admin: 10/16/16 09:15 Dose: 20 mg Hydralazine HCl (Apresoline) 100 mg PO Q8 [facility] Last Admin: 10/16/16 07:11 Dose: 100 mg Levetiracetam 500 mg/ Sodium (Chloride) 105 mls @ 420 mls/hr IVPB Q12H [facility] Last Admin: 10/16/16 05:52 Dose: 420 mls/hr Lisinopril (Zestril) 20 mg PO BID [facility] Last Admin: 10/16/16 09:15 Dose: 20 mg Sevelamer Carbonate (Renvela) 800 mg PO TIDCC [facility] Last Admin: 10/16/16 08:37 Dose: 800 mg Vitamin B Complex/Vit C/Folic Acid (Nephro-Enedina) 1 tab PO 0800 [facility] Last Admin: 10/16/16 08:37 Dose: 1 tab - Labs Labs: 10/16/16 06:27 10/16/16 06:27 PT 13.4 SECONDS (9.7-12.2) H 10/11/16 15:23 INR 1.2 10/11/16 15:23 APTT 34 SECONDS (21-34) 10/11/16 15:23 - Extremities Exam Additional comments: RUE: splint intact volar, +ROM fingers, thumb , sensation intact, fingers warm cap refill < 2 sec Assessment and Plan (1) Closed fracture of right distal radius Assessment & Plan: For closed reduction/casting vs open reduction internal fixation when cleared/ optimized d/w Dr. Grimm, agrees with above cont splint elevate encourage ROM fingers PT/OT as appropriate Status: Acute (2) Displaced fracture of styloid process of right ulna Assessment & Plan: see above Status: Acute
[2016-10-16] MEDS: Acetaminophen 650mg/20.3ml solution UD PO PRN ×2 (10:16→19:30)
--- NOTE | 2016-10-16 14:44 | CP.PCM.PN ---
Subjective - Date & Time of Evaluation Date of Evaluation: 10/16/16 Time of Evaluation: 02:45 - Subjective Subjective: Alert & oriented Had headache in am but now feels better No visual complaints BP 130/58 Objective - Vital Signs/Intake and Output Vital Signs (last 24 hours): Temp Pulse Resp BP Pulse Ox 98.1 F 54 L 16 150/54 L 98 10/16/16 12:00 10/16/16 12:00 10/16/16 12:00 10/16/16 12:00 10/16/16 13:16 Intake and Output: 10/16/16 10/16/16 06:59 18:59 Intake Total 400 300 Output Total 50 Balance 350 300 - Medications Medications: Current Medications Acetaminophen (Tylenol 650mg/20.3ml Solution Ud) 650 mg PO Q6 PRN PRN Reason: Pain, Mild (1-3) Last Admin: 10/16/16 10:16 Dose: 650 mg Amlodipine Besylate (Norvasc) 10 mg PO DAILY [facility] Last Admin: 10/16/16 09:15 Dose: 10 mg Carvedilol (Coreg) 25 mg PO BID [facility] Last Admin: 10/16/16 09:15 Dose: 25 mg Cinacalcet (Sensipar) 30 mg PO HS [facility] Last Admin: 10/15/16 21:23 Dose: 30 mg Docusate Sodium (Colace) 100 mg PO TID [facility] Last Admin: 10/16/16 13:36 Dose: 100 mg Doxercalciferol (Hectorol) 0.5 mcg PO TTS [facility] Last Admin: 10/15/16 10:45 Dose: 0.5 mcg Doxercalciferol (Hectorol) 2.5 mcg PO TTS [facility] Last Admin: 10/15/16 10:45 Dose: 2.5 mcg Epoetin Anuj (Procrit) 4,000 unit IV TTS [facility] Last Admin: 10/15/16 10:57 Dose: 4,000 unit Famotidine (Pepcid) 20 mg PO DAILY [facility] Last Admin: 10/16/16 09:15 Dose: 20 mg Hydralazine HCl (Apresoline) 100 mg PO Q8 [facility] Last Admin: 10/16/16 13:36 Dose: 100 mg Levetiracetam 500 mg/ Sodium (Chloride) 105 mls @ 420 mls/hr IVPB Q12H [facility] Last Admin: 10/16/16 05:52 Dose: 420 mls/hr Lisinopril (Zestril) 20 mg PO BID [facility] Last Admin: 10/16/16 09:15 Dose: 20 mg Sevelamer Carbonate (Renvela) 800 mg PO TIDCC [facility] Last Admin: 10/16/16 12:01 Dose: 800 mg Vitamin B Complex/Vit C/Folic Acid (Nephro-Enedina) 1 tab PO 0800 [facility] Last Admin: 10/16/16 08:37 Dose: 1 tab - Labs Labs: 10/16/16 06:27 10/16/16 06:27 PT 13.4 SECONDS (9.7-12.2) H 10/11/16 15:23 INR 1.2 10/11/16 15:23 APTT 34 SECONDS (21-34) 10/11/16 15:23 - Respiratory Exam Respiratory Exam: NORMAL BREATHING PATTERN Additional comments: Lungs clear - Cardiovascular Exam Cardiovascular Exam: REGULAR RHYTHM - Extremities Exam Additional comments: No edema. Rt arm wrapped Assessment and Plan - Assessment and Plan (Free Text) Assessment: ESRD on HD B/L SAH Displaced Fx of Rt distal radius HTN Plan: Stable on dialysis. For HD tomorrow. Will increase UF goal as tolerated
--- NOTE | 2016-10-16 21:05 | CP.PCM.PN ---
<Laurita Portillo - Last Filed: 10/16/16 21:03> Subjective - Date & Time of Evaluation Date of Evaluation: 10/16/16 Time of Evaluation: 07:30 - Subjective Subjective: PGY1- Medicine Note- Dr. oMya's Service Patient seen and examined at bedside today with a complaint of constant headache that varies in strength through out the day. Headache is currently 3/ 10 and at its worse 10/10, Tylenol decreases the pain. Patient feels intermittently light headed when she sits up right. Patient is experiencing face pain 7/10 and arm pain 5/10 at her injury sites, nonradiating. 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 Patient is experiencing a decreased appetite and is only able to swallow soft foods, decreased urination, constipation. Denies changes in vision , hearing loss, tinnitus, chest pain, shortness of breath, palpitations, cough, cold, congestion, swelling in extremities, dysuria. Objective - Vital Signs/Intake and Output Vital Signs (last 24 hours): Temp Pulse Resp BP Pulse Ox 98.5 F 57 L 20 148/56 L 98 10/16/16 20:00 10/16/16 20:00 10/16/16 20:00 10/16/16 17:39 10/16/16 20:00 Intake and Output: 10/16/16 10/17/16 18:59 06:59 Intake Total 700 100 Balance 700 100 - Medications Medications: Current Medications Acetaminophen (Tylenol 650mg/20.3ml Solution Ud) 650 mg PO Q6 PRN PRN Reason: Pain, Mild (1-3) Last Admin: 10/16/16 19:30 Dose: 650 mg Amlodipine Besylate (Norvasc) 10 mg PO DAILY [facility] Last Admin: 10/16/16 09:15 Dose: 10 mg Carvedilol (Coreg) 25 mg PO BID [facility] Last Admin: 10/16/16 17:39 Dose: 25 mg Cinacalcet (Sensipar) 30 mg PO HS [facility] Last Admin: 10/15/16 21:23 Dose: 30 mg Docusate Sodium (Colace) 100 mg PO TID [facility] Last Admin: 10/16/16 17:39 Dose: 100 mg Doxercalciferol (Hectorol) 0.5 mcg PO TTS [facility] Last Admin: 10/15/16 10:45 Dose: 0.5 mcg Doxercalciferol (Hectorol) 2.5 mcg PO TTS [facility] Last Admin: 10/15/16 10:45 Dose: 2.5 mcg Epoetin Anuj (Procrit) 4,000 unit IV TTS [facility] Last Admin: 10/15/16 10:57 Dose: 4,000 unit Famotidine (Pepcid) 20 mg PO DAILY [facility] Last Admin: 10/16/16 09:15 Dose: 20 mg Hydralazine HCl (Apresoline) 100 mg PO Q8 [facility] Last Admin: 10/16/16 13:36 Dose: 100 mg Levetiracetam 500 mg/ Sodium (Chloride) 105 mls @ 420 mls/hr IVPB Q12H [facility] Last Admin: 10/16/16 17:40 Dose: 420 mls/hr Lisinopril (Zestril) 20 mg PO BID [facility] Last Admin: 10/16/16 17:40 Dose: 20 mg Sevelamer Carbonate (Renvela) 800 mg PO TIDCC [facility] Last Admin: 10/16/16 16:50 Dose: 800 mg Vitamin B Complex/Vit C/Folic Acid (Nephro-Enedina) 1 tab PO 0800 [facility] Last Admin: 10/16/16 08:37 Dose: 1 tab - Labs Labs: 10/16/16 06:27 10/16/16 06:27 PT 13.4 SECONDS (9.7-12.2) H 10/11/16 15:23 INR 1.2 10/11/16 15:23 APTT 34 SECONDS (21-34) 10/11/16 15:23 - Constitutional Appears: Well, Non-toxic, No Acute Distress - Head Exam Head Exam: ATRAUMATIC, NORMAL INSPECTION, NORMOCEPHALIC - Eye Exam Eye Exam: EOMI, Normal appearance, PERRL - ENT Exam ENT Exam: Mucous Membranes Moist, Normal Exam - Neck Exam Neck Exam: Full ROM, Normal Inspection. absent: Lymphadenopathy - Respiratory Exam Respiratory Exam: Clear to Ausculation Bilateral, NORMAL BREATHING PATTERN. absent: Rales, Rhonchi, Wheezes, Respiratory Distress, Stridor - Cardiovascular Exam Cardiovascular Exam: REGULAR RHYTHM, RRR, +S1, +S2. absent: Rubs, Murmur - GI/Abdominal Exam GI & Abdominal Exam: Soft, Normal Bowel Sounds. absent: Distended, Firm, Guarding, Tenderness - Extremities Exam Extremities Exam: Full ROM, Normal Inspection - Back Exam Back Exam: NORMAL INSPECTION. absent: rash noted - Neurological Exam Neurological Exam: Alert, Awake, Oriented x3 - Psychiatric Exam Psychiatric exam: Normal Affect, Normal Mood - Skin Skin Exam: absent: Normal Color Additional comments: ecchymosis on right side of face, facial swelling decreased Assessment and Plan - Assessment and Plan (Free Text) Assessment: Subarachnoid Hemorrhage 09/16: MRI/MRA cancelled by Dr. Mack. EEG done, follow up Head CT [10/11]: Bilateral convexity subarachnoid hemorrhage. Possible small hemorrhagic contusion frontoparietal bilaterally and possibly left frontal. Minimal subarachnoid blood in the anterior interhemispheric fissure. No intraventricular hemorrhage. Head CT [10/12]: Bilateral parietal convexity and left temporal subarachnoid hemorrhage without significant interval change. Mild chornic microangiopathic changes and mild age-related global parenchymal volume loss. Head CT [10/13]: No significant interval change in known bilateral parietal convexity subarachnoid hemorrhage, larger on the left with extension into the temporal lobe sulci. Mild chornic microangiopathic changes and mild age-related global parenchymal volume loss. Subarachnoid Hemorrhage Alert and Orientedx3 Monitor Neurology Consult: Dr. Mack, help appreciated Neurosurgery Consult, Dr. Yost, help appreciated Hypertension EKG [10/11]: Normal sinus rhythm. Possible left atrial enlargement. Left ventricular hypertrophy. Abnormal ECG. Cardiology Consult: Dr. Butler Amlodopine 10mg PO daily Carvedilol 25mg PO BID Lisinopril 20mg PO BID Hydralazine 100mg PO Q8 CXR [10/12]: No acute findings. Persistent cardiomegaly and mild pulmonary venous congestion. No focal consolidation. Anemia H/H [10/14]: 9.0/27.8 Patient is currently off antiplatelets and heparin Procit 4000unit IV TTS End Stage Renal Disease Dialysis Friday, , Friday Sevelamer Carbonate 800mg PO TIDCC Cinacalet 30mg PO HS Doxercalciferol .5 mcg PO TTS, 2.5 mcg PO TTS Musculoskeletal Injuries Hand Xray [10/11]: No acute fracture. 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 Wrist Xray [10/11]: Comminuted mildly displaced transverse fracture distal radius. Displaced ulnar styloid process fracture. Wrist Xray [10/11]: Close reduction comminuted distal radial fracture and ulnar styloid process fracture. Knee Xray [10/11]: Normal radiographs of right knee. Maxillofacial CT [10/11]: Significant right sided facial soft tissue swelling. No definitive evidence of right sided facial fractures seen. Minor mucosal thickening right maxillary antrum. Status post left cataract surgery. Dental caries with radicular cystic changes. Consult Ortho: Dr. Grimm, help appreciated Acetaminophen 650mg PO Q6 prn for pain Prophylactic Measure Pepcid 20mg PO daily SCDs Colace 100mg PO TID Vitamin B Complex/Vit C/Folic Acid 1 tab PO PT/OT OOB to chair <Kali Moya Jr. - Last Filed: 10/22/16 10:34> Objective - Vital Signs/Intake and Output Vital Signs (last 24 hours): Temp Pulse Resp BP Pulse Ox 98.3 F 56 L 20 145/69 95 10/18/16 17:47 10/18/16 17:47 10/18/16 17:47 10/18/16 18:14 10/18/16 17:47 - Labs Labs: 10/18/16 08:32 10/18/16 08:32 PT 13.4 SECONDS (9.7-12.2) H 10/11/16 15:23 INR 1.2 10/11/16 15:23 APTT 34 SECONDS (21-34) 10/11/16 15:23 Attending/Attestation - Attestation I have personally seen and examined this patient.: Yes I have fully participated in the care of the patient.: Yes I have reviewed all pertinent clinical information, including history, physical exam and plan: Yes Notes (Text): 10/22/16 10:33 Agree with resident note and findings
--- NOTE | 2016-10-16 21:42 | CP.PCM.PN ---
Subjective - Date & Time of Evaluation Date of Evaluation: 10/16/16 Time of Evaluation: 17:25 - Subjective Subjective: EEG REPORT:: BACKGROUND ACTIVITIES ARE NORMAL FOR HER AGE NO PAROYSMAL ACTIVITIES OR FOCAL SLOWING NOTED PHOTIC NO EVOKED RESPONSE Objective - Vital Signs/Intake and Output Vital Signs (last 24 hours): Temp Pulse Resp BP Pulse Ox 98.5 F 57 L 20 148/56 L 98 10/16/16 20:00 10/16/16 20:00 10/16/16 20:00 10/16/16 17:39 10/16/16 20:00 Intake and Output: 10/16/16 10/17/16 18:59 06:59 Intake Total 700 100 Balance 700 100 - Medications Medications: Current Medications Acetaminophen (Tylenol 650mg/20.3ml Solution Ud) 650 mg PO Q6 PRN PRN Reason: Pain, Mild (1-3) Last Admin: 10/16/16 19:30 Dose: 650 mg Amlodipine Besylate (Norvasc) 10 mg PO DAILY [facility] Last Admin: 10/16/16 09:15 Dose: 10 mg Carvedilol (Coreg) 25 mg PO BID [facility] Last Admin: 10/16/16 17:39 Dose: 25 mg Cinacalcet (Sensipar) 30 mg PO HS [facility] Last Admin: 10/15/16 21:23 Dose: 30 mg Docusate Sodium (Colace) 100 mg PO TID [facility] Last Admin: 10/16/16 17:39 Dose: 100 mg Doxercalciferol (Hectorol) 0.5 mcg PO TTS [facility] Last Admin: 10/15/16 10:45 Dose: 0.5 mcg Doxercalciferol (Hectorol) 2.5 mcg PO TTS [facility] Last Admin: 10/15/16 10:45 Dose: 2.5 mcg Epoetin Anuj (Procrit) 4,000 unit IV TTS [facility] Last Admin: 10/15/16 10:57 Dose: 4,000 unit Famotidine (Pepcid) 20 mg PO DAILY [facility] Last Admin: 10/16/16 09:15 Dose: 20 mg Hydralazine HCl (Apresoline) 100 mg PO Q8 [facility] Last Admin: 10/16/16 13:36 Dose: 100 mg Levetiracetam 500 mg/ Sodium (Chloride) 105 mls @ 420 mls/hr IVPB Q12H [facility] Last Admin: 10/16/16 17:40 Dose: 420 mls/hr Lisinopril (Zestril) 20 mg PO BID [facility] Last Admin: 10/16/16 17:40 Dose: 20 mg Sevelamer Carbonate (Renvela) 800 mg PO TIDCC [facility] Last Admin: 10/16/16 16:50 Dose: 800 mg Vitamin B Complex/Vit C/Folic Acid (Nephro-Enedina) 1 tab PO 0800 [facility] Last Admin: 10/16/16 08:37 Dose: 1 tab - Labs Labs: 10/16/16 06:27 10/16/16 06:27 PT 13.4 SECONDS (9.7-12.2) H 10/11/16 15:23 INR 1.2 10/11/16 15:23 APTT 34 SECONDS (21-34) 10/11/16 15:23
--- NOTE | 2016-10-16 23:36 | CP.PCM.PN ---
Subjective - Date & Time of Evaluation Date of Evaluation: 10/16/16 Time of Evaluation: 08:10 - Subjective Subjective: Patient seen and evaluated Feels better Objective - Vital Signs/Intake and Output Vital Signs (last 24 hours): Temp Pulse Resp BP Pulse Ox 98.5 F 57 L 20 152/56 H 95 10/16/16 20:00 10/16/16 20:00 10/16/16 20:00 10/16/16 20:00 10/16/16 20:00 Intake and Output: 10/16/16 10/17/16 18:59 06:59 Intake Total 700 100 Balance 700 100 - Medications Medications: Current Medications Acetaminophen (Tylenol 650mg/20.3ml Solution Ud) 650 mg PO Q6 PRN PRN Reason: Pain, Mild (1-3) Last Admin: 10/16/16 19:30 Dose: 650 mg Amlodipine Besylate (Norvasc) 10 mg PO DAILY [facility] Last Admin: 10/16/16 09:15 Dose: 10 mg Carvedilol (Coreg) 25 mg PO BID [facility] Last Admin: 10/16/16 17:39 Dose: 25 mg Cinacalcet (Sensipar) 30 mg PO HS [facility] Last Admin: 10/16/16 22:03 Dose: 30 mg Docusate Sodium (Colace) 100 mg PO TID [facility] Last Admin: 10/16/16 17:39 Dose: 100 mg Doxercalciferol (Hectorol) 0.5 mcg PO TTS [facility] Last Admin: 10/15/16 10:45 Dose: 0.5 mcg Doxercalciferol (Hectorol) 2.5 mcg PO TTS [facility] Last Admin: 10/15/16 10:45 Dose: 2.5 mcg Epoetin Anuj (Procrit) 4,000 unit IV TTS [facility] Last Admin: 10/15/16 10:57 Dose: 4,000 unit Famotidine (Pepcid) 20 mg PO DAILY [facility] Last Admin: 10/16/16 09:15 Dose: 20 mg Hydralazine HCl (Apresoline) 100 mg PO Q8 [facility] Last Admin: 10/16/16 22:03 Dose: 100 mg Levetiracetam 500 mg/ Sodium (Chloride) 105 mls @ 420 mls/hr IVPB Q12H [facility] Last Admin: 10/16/16 17:40 Dose: 420 mls/hr Lisinopril (Zestril) 20 mg PO BID [facility] Last Admin: 10/16/16 17:40 Dose: 20 mg Sevelamer Carbonate (Renvela) 800 mg PO TIDCC [facility] Last Admin: 10/16/16 16:50 Dose: 800 mg Vitamin B Complex/Vit C/Folic Acid (Nephro-Enedina) 1 tab PO 0800 [facility] Last Admin: 10/16/16 08:37 Dose: 1 tab - Labs Labs: 10/16/16 06:27 10/16/16 06:27 PT 13.4 SECONDS (9.7-12.2) H 10/11/16 15:23 INR 1.2 10/11/16 15:23 APTT 34 SECONDS (21-34) 10/11/16 15:23
[2016-10-17] MEDS: levETIRAcetam 500 MG in Sodium Chloride 0.9% 100 ML IVPB SCH ×2 (05:58→18:08)
[2016-10-17 06:44] LABS: BASO # 0.1 K/uL (0.0-0.2); EOS # 0.2 K/uL (0.0-0.7); EOS % 3.6 % (0.0-4.0); LYMPH % 14.6 % (20.0-40.0); MEAN CELL VOLUME 89.7 fL (81.0-99.0); MEAN CORPUSCULAR HEMOGLOBIN 28.9 pg (27.0-31.0); MEAN CORPUSCULAR HGB CONC 32.2 g/dL (33.0-37.0); MEAN PLATELET VOLUME 7.6 fL (7.2-11.7); MONO # 0.9 K/uL (0.0-0.8); MONO % 12.9 % (0.0-10.0); NEUT # 4.6 K/uL (1.8-7.0); NEUT % 67.9 % (50.0-75.0); RBC 3.11 Mil/uL (3.80-5.20); RED CELL DISTRIBUTION WIDTH 16.6 % (11.5-14.5); WHITE BLOOD COUNT 6.8 K/uL (4.8-10.8)
[2016-10-17 07:08] LABS: ALB/GLOB RATIO 0.9 (1.0-2.1)
[2016-10-17 07:09] LABS: CALCIUM 7.7 mg/dl (8.6-10.4); MAGNESIUM 2.3 mg/dL (1.6-2.3)
[2016-10-17] MEDS: Multivitamin Vitamin B Complex (Nephro-Vite) Tab PO SCH (07:40)
[2016-10-17] MEDS: EPOETIN ALFA 4,000 UNIT/ML ML Dialysis IV SCH (10:02)
[2016-10-17] MEDS: DOXERCALCIFEROL 2.5 MCG PO SCH (10:23)
--- NOTE | 2016-10-17 11:50 | CP.PCM.PN ---
Subjective - Date & Time of Evaluation Date of Evaluation: 10/17/16 Time of Evaluation: 11:45 - Subjective Subjective: Seen on dialysis Denies any headache today No c/o SOB Objective - Vital Signs/Intake and Output Vital Signs (last 24 hours): Temp Pulse Resp BP Pulse Ox 97 F L 73 15 174/56 H 98 10/17/16 09:20 10/17/16 10:30 10/17/16 10:30 10/17/16 10:30 10/17/16 08:00 Intake and Output: 10/17/16 10/17/16 06:59 18:59 Intake Total 300 300 Balance 300 300 - Medications Medications: Current Medications Acetaminophen (Tylenol 650mg/20.3ml Solution Ud) 650 mg PO Q6 PRN PRN Reason: Pain, Mild (1-3) Last Admin: 10/16/16 19:30 Dose: 650 mg Amlodipine Besylate (Norvasc) 10 mg PO DAILY [facility] Last Admin: 10/17/16 10:23 Dose: 10 mg Carvedilol (Coreg) 25 mg PO BID [facility] Last Admin: 10/17/16 10:23 Dose: 25 mg Cinacalcet (Sensipar) 30 mg PO HS [facility] Last Admin: 10/16/16 22:03 Dose: 30 mg Docusate Sodium (Colace) 100 mg PO TID [facility] Last Admin: 10/17/16 10:23 Dose: 100 mg Doxercalciferol (Hectorol) 0.5 mcg PO TTS [facility] Last Admin: 10/17/16 10:23 Dose: 0.5 mcg Doxercalciferol (Hectorol) 2.5 mcg PO TTS [facility] Last Admin: 10/17/16 10:23 Dose: 2.5 mcg Epoetin Anuj (Procrit) 4,000 unit IV TTS [facility] Last Admin: 10/17/16 10:02 Dose: 4,000 unit Famotidine (Pepcid) 20 mg PO DAILY [facility] Last Admin: 10/17/16 10:23 Dose: 20 mg Hydralazine HCl (Apresoline) 100 mg PO Q8 [facility] Last Admin: 10/17/16 05:58 Dose: 100 mg Levetiracetam 500 mg/ Sodium (Chloride) 105 mls @ 420 mls/hr IVPB Q12H [facility] Last Admin: 10/17/16 05:58 Dose: 420 mls/hr Lisinopril (Zestril) 20 mg PO BID [facility] Last Admin: 10/17/16 10:23 Dose: 20 mg Sevelamer Carbonate (Renvela) 800 mg PO TIDCC [facility] Last Admin: 10/17/16 07:40 Dose: 800 mg Vitamin B Complex/Vit C/Folic Acid (Nephro-Enedina) 1 tab PO 0800 [facility] Last Admin: 10/17/16 07:40 Dose: 1 tab - Labs Labs: 10/17/16 06:34 10/17/16 06:34 PT 13.4 SECONDS (9.7-12.2) H 10/11/16 15:23 INR 1.2 10/11/16 15:23 APTT 34 SECONDS (21-34) 10/11/16 15:23 - Respiratory Exam Additional comments: Lungs clear - Cardiovascular Exam Cardiovascular Exam: REGULAR RHYTHM Additional comments: sinus rythm - GI/Abdominal Exam GI & Abdominal Exam: Soft - Extremities Exam Additional comments: No edema Assessment and Plan - Assessment and Plan (Free Text) Assessment: ESRD on maintenance HD HTN CAD B/L SAH, S/P faii Rt distal radial Fx Plan: Will attemt more UF because of low S[place]un BP 174/76 Ferritin level is pending
--- NOTE | 2016-10-17 13:39 | CP.PCM.PN ---
Subjective - Date & Time of Evaluation Date of Evaluation: 10/17/16 Time of Evaluation: 13:40 - Subjective Subjective: Patient seen during HD. Says pain in wrist is improving. Moving fingers as instructed. Did not have PT yet today, yesterday was dizzy just sitting up. Objective - Vital Signs/Intake and Output Vital Signs (last 24 hours): Temp Pulse Resp BP Pulse Ox 98.0 F 69 13 163/52 H 94 L 10/17/16 12:00 10/17/16 12:30 10/17/16 12:30 10/17/16 12:30 10/17/16 12:30 Intake and Output: 10/17/16 10/17/16 06:59 18:59 Intake Total 300 300 Balance 300 300 - Medications Medications: Current Medications Acetaminophen (Tylenol 650mg/20.3ml Solution Ud) 650 mg PO Q6 PRN PRN Reason: Pain, Mild (1-3) Last Admin: 10/16/16 19:30 Dose: 650 mg Amlodipine Besylate (Norvasc) 10 mg PO DAILY [facility] Last Admin: 10/17/16 10:23 Dose: 10 mg Carvedilol (Coreg) 25 mg PO BID [facility] Last Admin: 10/17/16 10:23 Dose: 25 mg Cinacalcet (Sensipar) 30 mg PO HS [facility] Last Admin: 10/16/16 22:03 Dose: 30 mg Docusate Sodium (Colace) 100 mg PO TID [facility] Last Admin: 10/17/16 10:23 Dose: 100 mg Doxercalciferol (Hectorol) 0.5 mcg PO TTS [facility] Last Admin: 10/17/16 10:23 Dose: 0.5 mcg Doxercalciferol (Hectorol) 2.5 mcg PO TTS [facility] Last Admin: 10/17/16 10:23 Dose: 2.5 mcg Epoetin Anuj (Procrit) 4,000 unit IV TTS [facility] Last Admin: 10/17/16 10:02 Dose: 4,000 unit Famotidine (Pepcid) 20 mg PO DAILY [facility] Last Admin: 10/17/16 10:23 Dose: 20 mg Hydralazine HCl (Apresoline) 100 mg PO Q8 [facility] Last Admin: 10/17/16 05:58 Dose: 100 mg Levetiracetam 500 mg/ Sodium (Chloride) 105 mls @ 420 mls/hr IVPB Q12H [facility] Last Admin: 10/17/16 05:58 Dose: 420 mls/hr Lisinopril (Zestril) 20 mg PO BID [facility] Last Admin: 10/17/16 10:23 Dose: 20 mg Sevelamer Carbonate (Renvela) 800 mg PO TIDCC [facility] Last Admin: 10/17/16 12:47 Dose: 800 mg Vitamin B Complex/Vit C/Folic Acid (Nephro-Enedina) 1 tab PO 0800 [facility] Last Admin: 10/17/16 07:40 Dose: 1 tab - Labs Labs: 10/17/16 06:34 10/17/16 06:34 PT 13.4 SECONDS (9.7-12.2) H 10/11/16 15:23 INR 1.2 10/11/16 15:23 APTT 34 SECONDS (21-34) 10/11/16 15:23 - Extremities Exam Additional comments: RUE: +ROM fingers, sensation intact med/rad/ulnar nerves, fingers warm, goo cap refill, splint intact Assessment and Plan (1) Closed fracture of right distal radius Assessment & Plan: Plan for closed reduction and casting in the OR vs ORIF when medically cleared for procedure d/w Dr. Grimm, agrees with above Status: Acute (2) Displaced fracture of styloid process of right ulna Status: Acute
--- NOTE | 2016-10-17 18:29 | CP.PCM.PN ---
<Laurita Portillo - Last Filed: 10/17/16 18:26> Subjective - Date & Time of Evaluation Date of Evaluation: 10/17/16 Time of Evaluation: 07:30 - Subjective Subjective: PGY1 - Medicine Note- Dr. Moya's service Patient seen and examined at bedside with complaint of headache and feeling lightheaded. Headache is constant, currently 2/10, at its worse 8/10, Tylenol decreases the pain. Patient is experiencing arm pain 3/10 at injury site and denies pain at her facial injury site. Patient also complains of senior living intermittent right calf cramping, last episode last night, caused by movement that lasts 2 minutes, it is nonradiating with remitting factor of "rubbing". Pt expresses she needs assistance with movement including sitting up, ambulating to commode. Pt has poor appetite with constipation, last bowel movement on Friday. Denies chest pain, SOB, palpitation, dizziness, extremity swelling, changes in vision and hearing, tinnitus. Objective - Vital Signs/Intake and Output Vital Signs (last 24 hours): Temp Pulse Resp BP Pulse Ox 99.6 F 69 18 161/61 H 96 10/17/16 16:00 10/17/16 16:00 10/17/16 16:00 10/17/16 18:07 10/17/16 16:00 Intake and Output: 10/17/16 10/17/16 06:59 18:59 Intake Total 300 500 Balance 300 500 - Medications Medications: Current Medications Acetaminophen (Tylenol 650mg/20.3ml Solution Ud) 650 mg PO Q6 PRN PRN Reason: Pain, Mild (1-3) Last Admin: 10/16/16 19:30 Dose: 650 mg Amlodipine Besylate (Norvasc) 10 mg PO DAILY [facility] Last Admin: 10/17/16 10:23 Dose: 10 mg Carvedilol (Coreg) 25 mg PO BID [facility] Last Admin: 10/17/16 18:07 Dose: 25 mg Cinacalcet (Sensipar) 30 mg PO HS [facility] Last Admin: 10/16/16 22:03 Dose: 30 mg Docusate Sodium (Colace) 100 mg PO TID [facility] Last Admin: 10/17/16 18:07 Dose: 100 mg Doxercalciferol (Hectorol) 0.5 mcg PO TTS [facility] Last Admin: 10/17/16 10:23 Dose: 0.5 mcg Doxercalciferol (Hectorol) 2.5 mcg PO TTS [facility] Last Admin: 10/17/16 10:23 Dose: 2.5 mcg Epoetin Anuj (Procrit) 4,000 unit IV TTS [facility] Last Admin: 10/17/16 10:02 Dose: 4,000 unit Famotidine (Pepcid) 20 mg PO DAILY [facility] Last Admin: 10/17/16 10:23 Dose: 20 mg Hydralazine HCl (Apresoline) 100 mg PO Q8 [facility] Last Admin: 10/17/16 14:32 Dose: 100 mg Levetiracetam 500 mg/ Sodium (Chloride) 105 mls @ 420 mls/hr IVPB Q12H [facility] Last Admin: 10/17/16 18:08 Dose: 420 mls/hr Lisinopril (Zestril) 20 mg PO BID [facility] Last Admin: 10/17/16 18:07 Dose: 20 mg Sevelamer Carbonate (Renvela) 800 mg PO TIDCC [facility] Last Admin: 10/17/16 18:07 Dose: 800 mg Vitamin B Complex/Vit C/Folic Acid (Nephro-Enedina) 1 tab PO 0800 [facility] Last Admin: 10/17/16 07:40 Dose: 1 tab - Labs Labs: 10/17/16 06:34 10/17/16 06:34 PT 13.4 SECONDS (9.7-12.2) H 10/11/16 15:23 INR 1.2 10/11/16 15:23 APTT 34 SECONDS (21-34) 10/11/16 15:23 - Constitutional Appears: Non-toxic, No Acute Distress - Head Exam Head Exam: ATRAUMATIC, NORMAL INSPECTION, NORMOCEPHALIC - Eye Exam Eye Exam: EOMI, Normal appearance, PERRL - ENT Exam ENT Exam: Mucous Membranes Moist, Normal Exam - Neck Exam Neck Exam: Full ROM, Normal Inspection. absent: Lymphadenopathy - Respiratory Exam Respiratory Exam: Clear to Ausculation Bilateral, NORMAL BREATHING PATTERN. absent: Rales, Rhonchi, Wheezes, Respiratory Distress, Stridor - Cardiovascular Exam Cardiovascular Exam: REGULAR RHYTHM, RRR. absent: Gallop, Rubs, Murmur - GI/Abdominal Exam GI & Abdominal Exam: Soft, Normal Bowel Sounds. absent: Firm, Guarding, Rigid, Tenderness - Extremities Exam Extremities Exam: Tenderness Additional comments: right arm wrapped with splint, tender - Back Exam Back Exam: NORMAL INSPECTION. absent: rash noted - Neurological Exam Neurological Exam: Alert, Awake, Oriented x3 - Psychiatric Exam Psychiatric exam: Normal Affect, Normal Mood - Skin Skin Exam: Intact, Warm. absent: Normal Color Additional comments: facial contusion on right cheek Assessment and Plan - Assessment and Plan (Free Text) Assessment: Subarachnoid Hemorrhage Head CT [10/11]: Bilateral convexity subarachnoid hemorrhage. Possible small hemorrhagic contusion frontoparietal bilaterally and possibly left frontal. Minimal subarachnoid blood in the anterior interhemispheric fissure. No intraventricular hemorrhage. Head CT [10/12]: Bilateral parietal convexity and left temporal subarachnoid hemorrhage without significant interval change. Mild chornic microangiopathic changes and mild age-related global parenchymal volume loss. Head CT [10/13]: No significant interval change in known bilateral parietal convexity subarachnoid hemorrhage, larger on the left with extension into the temporal lobe sulci. Mild chornic microangiopathic changes and mild age-related global parenchymal volume loss. 09/16 MRI/MRA cancelled by Dr. Mack. EEG Report [10/16]: Background activities are normal for her age. No paroysmal activities or focal slowing noted. Photic no evoked response. Alert and Orientedx3 Neurology Consult: Dr. Mack, help appreciated Neurosurgery Consult: Dr. Yost, help appreciated Hypertension EKG [10/11]: Normal sinus rhythm. Possible left atrial enlargement. Left ventricular hypertrophy. Abnormal ECG. CXR [10/12]: No acute findings. Persistent cardiomegaly and mild pulmonary venous congestion. No focal consolidation. Cardiology Consult: Dr. Butler Amlodopine 10mg PO daily Carvedilol 25mg PO BID Lisinopril 20mg PO BID Hydralazine 100mg PO Q8 Anemia H/H [10/14]: 9.0/27.8 Patient is currently off antiplatelets and heparin Procit 4000unit IV TTS [facility] Friday, , Friday Sevelamer Carbonate 800mg PO TIDCC Cinacalet 30mg PO HS Doxercalciferol .5 mcg PO TTS, 2.5 mcg PO TTS Musculoskeletal Injuries Hand Xray [10/11]: No acute fracture. 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 Wrist Xray [10/11]: Comminuted mildly displaced transverse fracture distal radius. Displaced ulnar styloid process fracture. Wrist Xray [10/11]: Close reduction comminuted distal radial fracture and ulnar styloid process fracture. Knee Xray [10/11]: Normal radiographs of right knee. Maxillofacial CT [10/11]: Significant right sided facial soft tissue swelling. No definitive evidence of right sided facial fractures seen. Minor mucosal thickening right maxillary antrum. Status post left cataract surgery. Dental caries with radicular cystic changes. Consult Ortho: Dr. Grimm, help appreciated Acetaminophen 650mg PO Q6 prn for pain Prophylactic Measure Naris MRSA Culture [10/11]: MRSA not detected Pepcid 20mg PO daily [facility] Colace 100mg PO TID Vitamin B Complex/Vit C/Folic Acid 1 tab PO ? PT/OT OOB to chair <Kali Moya Jr. - Last Filed: 10/22/16 10:34> Objective - Vital Signs/Intake and Output Vital Signs (last 24 hours): Temp Pulse Resp BP Pulse Ox 98.3 F 56 L 20 145/69 95 10/18/16 17:47 10/18/16 17:47 10/18/16 17:47 10/18/16 18:14 10/18/16 17:47 - Labs Labs: 10/18/16 08:32 10/18/16 08:32 PT 13.4 SECONDS (9.7-12.2) H 10/11/16 15:23 INR 1.2 10/11/16 15:23 APTT 34 SECONDS (21-34) 10/11/16 15:23 Attending/Attestation - Attestation I have personally seen and examined this patient.: Yes I have fully participated in the care of the patient.: Yes I have reviewed all pertinent clinical information, including history, physical exam and plan: Yes Notes (Text): 10/22/16 10:34 Agree with resident note and findings
--- NOTE | 2016-10-17 18:49 | CP.PCM.PN ---
Subjective - Date & Time of Evaluation Date of Evaluation: 10/17/16 Time of Evaluation: 07:20 - Subjective Subjective: SLEEPY EASILY AROUSABLE SPEECH CLEAR CN ARE INTACT MOVES ALL 4 EXT NORMAL REST OF THE EXAM NORMAL CASE DISCUSSED WITH ORTHO CONTINUE JONG WILL DO MRI AND MRA AFTER HER MIO PERIOD OVER WITH POST STENT Objective - Vital Signs/Intake and Output Vital Signs (last 24 hours): Temp Pulse Resp BP Pulse Ox 99.6 F 69 18 161/61 H 96 10/17/16 16:00 10/17/16 16:00 10/17/16 16:00 10/17/16 18:07 10/17/16 16:00 Intake and Output: 10/17/16 10/17/16 06:59 18:59 Intake Total 300 900 Balance 300 900 - Medications Medications: Current Medications Acetaminophen (Tylenol 650mg/20.3ml Solution Ud) 650 mg PO Q6 PRN PRN Reason: Pain, Mild (1-3) Last Admin: 10/16/16 19:30 Dose: 650 mg Amlodipine Besylate (Norvasc) 10 mg PO DAILY [facility] Last Admin: 10/17/16 10:23 Dose: 10 mg Carvedilol (Coreg) 25 mg PO BID [facility] Last Admin: 10/17/16 18:07 Dose: 25 mg Cinacalcet (Sensipar) 30 mg PO HS [facility] Last Admin: 10/16/16 22:03 Dose: 30 mg Docusate Sodium (Colace) 100 mg PO TID [facility] Last Admin: 10/17/16 18:07 Dose: 100 mg Doxercalciferol (Hectorol) 0.5 mcg PO TTS [facility] Last Admin: 10/17/16 10:23 Dose: 0.5 mcg Doxercalciferol (Hectorol) 2.5 mcg PO TTS [facility] Last Admin: 10/17/16 10:23 Dose: 2.5 mcg Epoetin Anuj (Procrit) 4,000 unit IV TTS [facility] Last Admin: 10/17/16 10:02 Dose: 4,000 unit Famotidine (Pepcid) 20 mg PO DAILY [facility] Last Admin: 10/17/16 10:23 Dose: 20 mg Hydralazine HCl (Apresoline) 100 mg PO Q8 [facility] Last Admin: 10/17/16 14:32 Dose: 100 mg Levetiracetam 500 mg/ Sodium (Chloride) 105 mls @ 420 mls/hr IVPB Q12H [facility] Last Admin: 10/17/16 18:08 Dose: 420 mls/hr Lisinopril (Zestril) 20 mg PO BID [facility] Last Admin: 10/17/16 18:07 Dose: 20 mg Sevelamer Carbonate (Renvela) 800 mg PO TIDCC [facility] Last Admin: 10/17/16 18:07 Dose: 800 mg Vitamin B Complex/Vit C/Folic Acid (Nephro-Enedina) 1 tab PO 0800 [facility] Last Admin: 10/17/16 07:40 Dose: 1 tab - Labs Labs: 10/17/16 06:34 10/17/16 06:34 PT 13.4 SECONDS (9.7-12.2) H 10/11/16 15:23 INR 1.2 10/11/16 15:23 APTT 34 SECONDS (21-34) 10/11/16 15:23
--- NOTE | 2016-10-17 22:22 | CP.PCM.PN ---
Subjective - Date & Time of Evaluation Date of Evaluation: 10/17/16 Time of Evaluation: 08:20 - Subjective Subjective: Patient seen and evaluated No cardiac events Feels better Objective - Vital Signs/Intake and Output Vital Signs (last 24 hours): Temp Pulse Resp BP Pulse Ox 99.6 F 69 18 161/61 H 96 10/17/16 16:00 10/17/16 16:00 10/17/16 16:00 10/17/16 18:07 10/17/16 16:00 Intake and Output: 10/17/16 10/18/16 18:59 06:59 Intake Total 900 Balance 900 - Medications Medications: Current Medications Acetaminophen (Tylenol 650mg/20.3ml Solution Ud) 650 mg PO Q6 PRN PRN Reason: Pain, Mild (1-3) Last Admin: 10/16/16 19:30 Dose: 650 mg Amlodipine Besylate (Norvasc) 10 mg PO DAILY [facility] Last Admin: 10/17/16 10:23 Dose: 10 mg Carvedilol (Coreg) 25 mg PO BID [facility] Last Admin: 10/17/16 18:07 Dose: 25 mg Cinacalcet (Sensipar) 30 mg PO HS [facility] Last Admin: 10/17/16 21:27 Dose: 30 mg Docusate Sodium (Colace) 100 mg PO TID [facility] Last Admin: 10/17/16 18:07 Dose: 100 mg Doxercalciferol (Hectorol) 0.5 mcg PO TTS [facility] Last Admin: 10/17/16 10:23 Dose: 0.5 mcg Doxercalciferol (Hectorol) 2.5 mcg PO TTS [facility] Last Admin: 10/17/16 10:23 Dose: 2.5 mcg Epoetin Anuj (Procrit) 4,000 unit IV TTS [facility] Last Admin: 10/17/16 10:02 Dose: 4,000 unit Famotidine (Pepcid) 20 mg PO DAILY [facility] Last Admin: 10/17/16 10:23 Dose: 20 mg Hydralazine HCl (Apresoline) 100 mg PO Q8 [facility] Last Admin: 10/17/16 21:27 Dose: 100 mg Levetiracetam 500 mg/ Sodium (Chloride) 105 mls @ 420 mls/hr IVPB Q12H [facility] Last Admin: 10/17/16 18:08 Dose: 420 mls/hr Lisinopril (Zestril) 20 mg PO BID [facility] Last Admin: 10/17/16 18:07 Dose: 20 mg Sevelamer Carbonate (Renvela) 800 mg PO TIDCC [facility] Last Admin: 10/17/16 18:07 Dose: 800 mg Vitamin B Complex/Vit C/Folic Acid (Nephro-Enedina) 1 tab PO 0800 [facility] Last Admin: 10/17/16 07:40 Dose: 1 tab - Labs Labs: 10/17/16 06:34 10/17/16 06:34 PT 13.4 SECONDS (9.7-12.2) H 10/11/16 15:23 INR 1.2 10/11/16 15:23 APTT 34 SECONDS (21-34) 10/11/16 15:23
[2016-10-18] MEDS: Acetaminophen 650mg/20.3ml solution UD PO PRN ×2 (00:41→16:09)
[2016-10-18 00:48] VITALS: RESP 20
[2016-10-18] MEDS: levETIRAcetam 500 MG in Sodium Chloride 0.9% 100 ML IVPB SCH ×2 (07:06→18:10)
[2016-10-18 08:38] LABS: BASO # 0.1 K/uL (0.0-0.2); EOS # 0.2 K/uL (0.0-0.7); EOS % 3.1 % (0.0-4.0); HEMOGLOBIN 9.3 g/dL (11.0-16.0); LYMPH # 0.9 K/uL (1.0-4.3); LYMPH % 13.9 % (20.0-40.0); MEAN CELL VOLUME 89.6 fL (81.0-99.0); MEAN CORPUSCULAR HEMOGLOBIN 29.3 pg (27.0-31.0); MEAN CORPUSCULAR HGB CONC 32.7 g/dL (33.0-37.0); MEAN PLATELET VOLUME 7.4 fL (7.2-11.7); MONO % 15.2 % (0.0-10.0); NEUT # 4.3 K/uL (1.8-7.0); NEUT % 66.8 % (50.0-75.0); NRBC % 0.1 % (0.0-2.0); RBC 3.16 Mil/uL (3.80-5.20); RED CELL DISTRIBUTION WIDTH 16.4 % (11.5-14.5); WHITE BLOOD COUNT 6.5 K/uL (4.8-10.8)
[2016-10-18 09:20] LABS: ALB/GLOB RATIO 0.9 (1.0-2.1)
[2016-10-18 09:21] LABS: CALCIUM 8.2 mg/dl (8.6-10.4); MAGNESIUM 2.2 mg/dL (1.6-2.3)
[2016-10-18] MEDS: Multivitamin Vitamin B Complex (Nephro-Vite) Tab PO SCH (09:39)
--- NOTE | 2016-10-18 10:58 | CP.PCM.PN ---
Subjective - Date & Time of Evaluation Date of Evaluation: 10/18/16 Time of Evaluation: 11:30 - Subjective Subjective: Comfortable supine No headache at this time Objective - Vital Signs/Intake and Output Vital Signs (last 24 hours): Temp Pulse Resp BP Pulse Ox 97.9 F 57 L 20 151/64 H 94 L 10/18/16 09:01 10/18/16 09:01 10/18/16 09:01 10/18/16 09:40 10/18/16 09:01 Intake and Output: 10/18/16 10/18/16 06:59 18:59 Intake Total 360 Balance 360 - Medications Medications: Current Medications Acetaminophen (Tylenol 650mg/20.3ml Solution Ud) 650 mg PO Q6 PRN PRN Reason: Pain, Mild (1-3) Last Admin: 10/18/16 00:41 Dose: 650 mg Amlodipine Besylate (Norvasc) [address] [facility] Last Admin: 10/18/16 09:39 Dose: 10 mg Carvedilol (Coreg) [address] [facility] Last Admin: 10/18/16 09:40 Dose: 25 mg Cinacalcet (Sensipar) [address] [facility] Last Admin: 10/17/16 21:27 Dose: 30 mg Docusate Sodium (Colace) [address] [facility] Last Admin: 10/18/16 09:39 Dose: 100 mg Doxercalciferol (Hectorol) 0.[address] [facility] Last Admin: 10/17/16 10:23 Dose: 0.5 mcg Doxercalciferol (Hectorol) 2.[address] [facility] Last Admin: 10/17/16 10:23 Dose: 2.5 mcg Epoetin Anuj (Procrit) 4,[address] [facility] Last Admin: 10/17/16 10:02 Dose: 4,000 unit Famotidine (Pepcid) [address] [facility] Last Admin: 10/18/16 09:40 Dose: 20 mg Hydralazine HCl (Apresoline) [address] [facility] Last Admin: 10/18/16 06:52 Dose: 100 mg Levetiracetam 500 mg/ Sodium (Chloride) 105 mls @ 420 mls/hr IVPB Q12H [facility] Last Admin: 10/18/16 07:06 Dose: 420 mls/hr Lisinopril (Zestril) [address] [facility] Last Admin: 10/18/16 09:39 Dose: 20 mg Sevelamer Carbonate (Renvela) [address] [facility] Last Admin: 10/18/16 09:40 Dose: 800 mg Vitamin B Complex/Vit C/Folic Acid (Nephro-Enedina) [address] [facility] Last Admin: 10/18/16 09:39 Dose: 1 tab - Labs Labs: 10/18/16 08:32 10/18/16 08:32 PT 13.4 SECONDS (9.7-12.2) H 10/11/16 15:23 INR 1.2 10/11/16 15:23 APTT 34 SECONDS (21-34) 10/11/16 15:23 - Constitutional Appears: No Acute Distress - Head Exam Additional comments: Resolving Rt facial ecchymoses - Respiratory Exam Additional comments: Lungs clear - Cardiovascular Exam Cardiovascular Exam: REGULAR RHYTHM - Extremities Exam Additional comments: No edema Assessment and Plan - Assessment and Plan (Free Text) Assessment: ESRD HTN SAH S/P fall Rt distal radial Fx Plan: Sodium is improved but still low. For dialysis tomorrow. UF goal is increased
--- NOTE | 2016-10-18 11:19 | CP.PCM.PN ---
Subjective - Date & Time of Evaluation Date of Evaluation: 10/18/16 Time of Evaluation: 11:17 - Subjective Subjective: Patient states wrist pain is controlled. Today was first day that she did not wake up with headache. No new complaints. Objective - Vital Signs/Intake and Output Vital Signs (last 24 hours): Temp Pulse Resp BP Pulse Ox 97.9 F 57 L 20 151/64 H 94 L 10/18/16 09:01 10/18/16 09:01 10/18/16 09:01 10/18/16 09:40 10/18/16 09:01 Intake and Output: 10/18/16 10/18/16 06:59 18:59 Intake Total 360 Balance 360 - Medications Medications: Current Medications Acetaminophen (Tylenol 650mg/20.3ml Solution Ud) 650 mg PO Q6 PRN PRN Reason: Pain, Mild (1-3) Last Admin: 10/18/16 00:41 Dose: 650 mg Amlodipine Besylate (Norvasc) 10 mg PO DAILY [facility] Last Admin: 10/18/16 09:39 Dose: 10 mg Carvedilol (Coreg) 25 mg PO BID [facility] Last Admin: 10/18/16 09:40 Dose: 25 mg Cinacalcet (Sensipar) 30 mg PO HS [facility] Last Admin: 10/17/16 21:27 Dose: 30 mg Docusate Sodium (Colace) 100 mg PO TID [facility] Last Admin: 10/18/16 09:39 Dose: 100 mg Doxercalciferol (Hectorol) 0.5 mcg PO TTS [facility] Last Admin: 10/17/16 10:23 Dose: 0.5 mcg Doxercalciferol (Hectorol) 2.5 mcg PO TTS [facility] Last Admin: 10/17/16 10:23 Dose: 2.5 mcg Epoetin Anuj (Procrit) 4,000 unit IV TTS [facility] Last Admin: 10/17/16 10:02 Dose: 4,000 unit Famotidine (Pepcid) 20 mg PO DAILY [facility] Last Admin: 10/18/16 09:40 Dose: 20 mg Hydralazine HCl (Apresoline) 100 mg PO Q8 [facility] Last Admin: 10/18/16 06:52 Dose: 100 mg Levetiracetam 500 mg/ Sodium (Chloride) 105 mls @ 420 mls/hr IVPB Q12H [facility] Last Admin: 10/18/16 07:06 Dose: 420 mls/hr Lisinopril (Zestril) 20 mg PO BID [facility] Last Admin: 10/18/16 09:39 Dose: 20 mg Sevelamer Carbonate (Renvela) 800 mg PO TIDCC [facility] Last Admin: 10/18/16 09:40 Dose: 800 mg Vitamin B Complex/Vit C/Folic Acid (Nephro-Enedina) 1 tab PO 0800 [facility] Last Admin: 10/18/16 09:39 Dose: 1 tab - Labs Labs: 10/18/16 08:32 10/18/16 08:32 PT 13.4 SECONDS (9.7-12.2) H 10/11/16 15:23 INR 1.2 10/11/16 15:23 APTT 34 SECONDS (21-34) 10/11/16 15:23 - Extremities Exam Additional comments: RUE: +ROM fingers, thumb, sensation intact, fingers warm, good cap refill, splint intact Assessment and Plan (1) Closed fracture of right distal radius Assessment & Plan: plan for closed reduction vs ORIF when medically stable d/w Dr. Grimm, agrees with above Status: Acute (2) Displaced fracture of styloid process of right ulna Status: Acute
--- NOTE | 2016-10-18 15:08 | CP.PCM.PN ---
Subjective - Date & Time of Evaluation Date of Evaluation: 10/18/16 Time of Evaluation: 07:10 - Subjective Subjective: PATIENT MORE AWAKE AND ALERT SPEECH CLEAR MILD FACIAL ASYMMETRY DUE TO HER TRAUMA NO CLINICAL SEIZURES REST OF THE EXAM IS NRMAL AND UNCHANGED CONTINUE THE PRESENT MANAGEMENT Objective - Vital Signs/Intake and Output Vital Signs (last 24 hours): Temp Pulse Resp BP Pulse Ox 97.9 F 57 L 20 151/64 H 94 L 10/18/16 09:01 10/18/16 09:01 10/18/16 09:01 10/18/16 09:40 10/18/16 09:01 Intake and Output: 10/18/16 10/18/16 06:59 18:59 Intake Total 360 Balance 360 - Medications Medications: Current Medications Acetaminophen (Tylenol 650mg/20.3ml Solution Ud) 650 mg PO Q6 PRN PRN Reason: Pain, Mild (1-3) Last Admin: 10/18/16 00:41 Dose: 650 mg Amlodipine Besylate (Norvasc) 10 mg PO DAILY [facility] Last Admin: 10/18/16 09:39 Dose: 10 mg Carvedilol (Coreg) 25 mg PO BID [facility] Last Admin: 10/18/16 09:40 Dose: 25 mg Cinacalcet (Sensipar) 30 mg PO HS [facility] Last Admin: 10/17/16 21:27 Dose: 30 mg Docusate Sodium (Colace) 100 mg PO TID [facility] Last Admin: 10/18/16 14:50 Dose: 100 mg Doxercalciferol (Hectorol) 0.5 mcg PO TTS [facility] Last Admin: 10/17/16 10:23 Dose: 0.5 mcg Doxercalciferol (Hectorol) 2.5 mcg PO TTS [facility] Last Admin: 10/17/16 10:23 Dose: 2.5 mcg Epoetin Anuj (Procrit) 4,000 unit IV TTS [facility] Last Admin: 10/17/16 10:02 Dose: 4,000 unit Famotidine (Pepcid) 20 mg PO DAILY [facility] Last Admin: 10/18/16 09:40 Dose: 20 mg Hydralazine HCl (Apresoline) 100 mg PO Q8 [facility] Last Admin: 10/18/16 14:52 Dose: Not Given Levetiracetam 500 mg/ Sodium (Chloride) 105 mls @ 420 mls/hr IVPB Q12H [facility] Last Admin: 10/18/16 07:06 Dose: 420 mls/hr Lisinopril (Zestril) 20 mg PO BID [facility] Last Admin: 10/18/16 09:39 Dose: 20 mg Sevelamer Carbonate (Renvela) 800 mg PO TIDCC [facility] Last Admin: 10/18/16 13:02 Dose: 800 mg Vitamin B Complex/Vit C/Folic Acid (Nephro-Enedina) 1 tab PO 0800 [facility] Last Admin: 10/18/16 09:39 Dose: 1 tab - Labs Labs: 10/18/16 08:32 10/18/16 08:32 PT 13.4 SECONDS (9.7-12.2) H 10/11/16 15:23 INR 1.2 10/11/16 15:23 APTT 34 SECONDS (21-34) 10/11/16 15:23
[2016-10-18 17:47] VITALS: PULSE 56; TEMP 98.3; O2SAT 95
[2016-10-18 18:15] VITALS: BP 145/69
--- NOTE | 2016-10-18 18:29 | CP.PCM.DIS ---
Provider - Provider Date of Admission: 10/11/16 17:06 Attending physician: Kali Moya Jr, MD Primary care physician: Dr. Moya Consults: Cardio: Dr. Winn Neuro: Dr. Mack Neurosurg: Dr. Yost Ortho: Dr. Grimm Nephro: Dr. Hernández Time Spent in preparation of Discharge (in minutes): 45 Diagnosis - Discharge Diagnosis (1) Subarachnoid hemorrhage Status: Acute Comment: see summary for details (2) ESRD (end stage renal disease) on dialysis Status: Acute Comment: see summary for details (3) HTN (hypertension) Status: Acute Comment: see summary for details (4) Closed fracture of right distal radius Status: Acute Comment: see summary for details Hospital Course - Lab Results Lab Results: Micro Results 10/11/16 19:13 Naris MRSA Culture (Admit) - Final MRSA NOT DETECTED Most Recent Lab Values WBC 6.5 K/uL (4.8-10.8) 10/18/16 08:32 RBC 3.16 Mil/uL (3.80-5.20) L 10/18/16 08:32 Hgb 9.3 g/dL (11.0-16.0) L 10/18/16 08:32 Hct 28.3 % (34.0-47.0) L 10/18/16 08:32 MCV 89.6 fL (81.0-99.0) 10/18/16 08:32 MCH 29.3 pg (27.0-31.0) 10/18/16 08:32 MCHC 32.7 g/dL (33.0-37.0) L 10/18/16 08:32 RDW 16.4 % (11.5-14.5) H 10/18/16 08:32 Plt Count 183 K/uL (130-400) 10/18/16 08:32 MPV 7.4 fL (7.2-11.7) 10/18/16 08:32 Neut % (Auto) 66.8 % (50.0-75.0) 10/18/16 08:32 Lymph % (Auto) 13.9 % (20.0-40.0) L 10/18/16 08:32 Major % (Auto) 15.2 % (0.0-10.0) H 10/18/16 08:32 Eos % (Auto) 3.1 % (0.0-4.0) 10/18/16 08:32 Baso % (Auto) 1.0 % (0.0-2.0) 10/18/16 08:32 Neut # 4.3 K/uL (1.8-7.0) 10/18/16 08:32 Lymph # 0.9 K/uL (1.0-4.3) L 10/18/16 08:32 Major # 1.0 K/uL (0.0-0.8) H 10/18/16 08:32 Eos # 0.2 K/uL (0.0-0.7) 10/18/16 08:32 Baso # 0.1 K/uL (0.0-0.2) 10/18/16 08:32 Neutrophils % (Manual) 81 % (50-75) H 10/15/16 06:51 Lymphocytes % (Manual) 9 % (20-40) L 10/15/16 06:51 Monocytes % (Manual) 6 % (0-10) 10/15/16 06:51 Eosinophils % (Manual) 4 % (0-4) 10/15/16 06:51 Toxic Granulation Present 10/15/16 06:51 Platelet Estimate Normal (NORMAL) 10/15/16 06:51 Polychromasia Slight 10/15/16 06:51 Hypochromasia (manual) Slight 10/15/16 06:51 Poikilocytosis (manual Slight 10/15/16 06:51 Anisocytosis (manual) Slight 10/15/16 06:51 Ovalocytes Slight 10/15/16 06:51 PT 13.4 SECONDS (9.7-12.2) H 10/11/16 15:23 INR 1.2 10/11/16 15:23 APTT 34 SECONDS (21-34) 10/11/16 15:23 Sodium 128 mmol/L (132-148) L 10/18/16 08:32 Potassium 4.6 mmol/L (3.6-5.2) 10/18/16 08:32 Chloride 91 mmol/L (98-107) L 10/18/16 08:32 Carbon Dioxide 27 mmol/L (22-30) 10/18/16 08:32 Anion Gap 15 (10-20) 10/18/16 08:32 BUN 29 mg/dL (7-17) H 10/18/16 08:32 Creatinine 4.8 MG/DL (0.7-1.2) H 10/18/16 08:32 Est GFR ( Amer) 11 10/18/16 08:32 Est GFR (Non-Af Amer) 9 10/18/16 08:32 Random Glucose 92 mg/dL (65-105) 10/18/16 08:32 Calcium 8.2 mg/dl (8.6-10.4) L 10/18/16 08:32 Phosphorus 4.2 mg/dL (2.5-4.5) 10/18/16 08:32 Magnesium 2.2 mg/dL (1.6-2.3) 10/18/16 08:32 Iron 38 ug/dL (37-170) 10/15/16 06:51 TIBC 166 ug/dL (250-450) L 10/15/16 06:51 % Saturation 23 (20-55) 10/15/16 06:51 Total Bilirubin 0.6 mg/dL (0.2-1.3) 10/18/16 08:32 AST 15 U/L (14-36) 10/18/16 08:32 ALT 9 U/L (9-52) D 10/18/16 08:32 Alkaline Phosphatase 52 U/L (38-126) 10/18/16 08:32 Total Protein 6.4 g/dL (6.3-8.3) 10/18/16 08:32 Albumin 3.0 g/dL (3.5-5.0) L 10/18/16 08:32 Globulin 3.4 gm/dL (2.2-3.9) 10/18/16 08:32 Albumin/Globulin Ratio 0.9 (1.0-2.1) L 10/18/16 08:32 Blood Type O POSITIVE 10/11/16 15:23 Antibody Screen Negative 10/11/16 15:23 - Hospital Course Hospital Course: "CC: Traumatic Fall HPI: Mrs Hernandez is a 70 yo female who had a traumatic fall yesterday around 12:30pm. She states that she was shopping in [email or web address] when she tripped on an elevated platform on her right side. She landed forcefully on her right arm, face and head. She then walked over to her dialysis center, which was only 1 block away, where the staff there called an ambulance and brought her to [facility]. She denies focal deficits, seizures, headache." Head trauma s/p fall with bilateral subdural hematoma.Head CT [10/11]: Bilateral convexity subarachnoid hemorrhage. Possible small hemorrhagic contusion frontoparietal bilaterally and possibly left frontal. Minimal subarachnoid blood in the anterior interhemispheric fissure. No intraventricular hemorrhage. Head CT [10/13]: No significant interval change in known bilateral parietal convexity subarachnoid hemorrhage, larger on the left with extension into the temporal lobe sulci. Mild chornic microangiopathic changes and mild age-related global parenchymal volume loss. 09/16 MRI/MRA cancelled by Dr. Mack due to recent cardiac stents. EEG Report [10/16]: Background activities are normal for her age. No paroysmal activities or focal slowing noted. Photic no evoked response. EKG [10/11]: Normal sinus rhythm. Possible left atrial enlargement. Left ventricular hypertrophy. Abnormal ECG. CXR [10/12]: No acute findings. Persistent cardiomegaly and mild pulmonary venous congestion. No focal consolidation. Dr. Butler consulted for cardiology. Patient's hypertension stabilized on Amlodopine 10mg PO daily,Carvedilol 25mg PO BID,Lisinopril 20mg PO BID, Hydralazine 100mg PO Q8. Patient has history of chronic anemia. All blood thinners stopped due to subdural hematoma. Patient continued to get dialysis for her end stage renal diseases on Friday, , Friday. Wrist Xray [10/11] : Close reduction comminuted distal radial fracture and ulnar styloid process fracture. Xrays of hand, knee, and maxillofacial CT were negative for fractures. Patient to follow up with ortho as outpatient. Patient feeling much better and only needs tylenol sometimes for pain. Patient cleared for subacute rehab per Dr. Moya. This is a summary of the hospital course, please see chart for full details. Discharge Exam - Head Exam Head Exam: ATRAUMATIC, NORMAL INSPECTION, NORMOCEPHALIC - Eye Exam Eye Exam: EOMI, Normal appearance, PERRL - ENT Exam ENT Exam: Mucous Membranes Moist - Neck Exam Neck exam: Full Rom, Normal Inspection - Respiratory Exam Respiratory Exam: Clear to PA & Lateral, NORMAL BREATHING PATTERN - Cardiovascular Exam Cardiovascular Exam: REGULAR RHYTHM, RRR - GI/Abdominal Exam GI & Abdominal Exam: Normal Bowel Sounds. absent: Distended, Firm, Guarding - Extremities Exam Extremities exam: tenderness Additional comments: right wrist in splint, tender, full ROM of motion of right fingers - Back Exam Back exam: FULL ROM, NORMAL INSPECTION - Neurological Exam Neurological exam: Alert, Oriented x3 - Psychiatric Exam Psychiatric exam: Normal Affect, Normal Mood - Skin Skin Exam: Intact, Warm Additional comments: ecchymosis on right side of face, facial swelling Discharge Plan - Follow Up Plan Condition: FAIR Disposition: REHAB FACILITY/REHAB UNIT Additional Instructions: Patient cleared for discharge as per Dr. Moya to subacute rehab. Patient to continue taking medications as listed above. Patient to follow up with Dr. Moya outpatient once discharged from rehab. If symptoms return or worsen patient to immediately return to ED. Instructions discussed with patient who understands. Referrals: [facility] [Outside] Kali Moya Jr., MD [Medical Doctor] -
== END 2016-10-18 22:00 | DRG 85 ==
LOC: C.ER 14:07 → C.9I 17:06 → C.6T 10-17 19:05
PROVIDERS: ADMIT Internal Medicine; ATTEND Internal Medicine
PROC: 5A1D60Z (ICD-10-PCS; principal; 2016-10-12)
DX: S06.6X0A Traumatic subarachnoid hemorrhage without loss of consciousness, initial encounter (principal); N18.6 End stage renal disease; I13.2 Hypertensive heart and chronic kidney disease with heart failure and with stage 5 chronic kidney disease, or end stage renal disease; N25.81 Secondary hyperparathyroidism of renal origin; S52.611A Displaced fracture of right ulna styloid process, initial encounter for closed fracture; D64.9 Anemia, unspecified; S52.591A Other fractures of lower end of right radius, initial encounter for closed fracture; E78.5 Hyperlipidemia, unspecified; H26.9 Unspecified cataract; W01.0XXA Fall on same level from slipping, tripping and stumbling without subsequent striking against object, initial encounter; I50.9 Heart failure, unspecified; I25.10 Atherosclerotic heart disease of native coronary artery without angina pectoris; K59.00 Constipation, unspecified; E78.00 Pure hypercholesterolemia, unspecified; Z99.2 Dependence on renal dialysis; Z79.82 Long term (current) use of aspirin; Z95.5 Presence of coronary angioplasty implant and graft; Z98.42 Cataract extraction status, left eye